=== PATIENT | female | born 1940 | race African-American/Black ===

== ENCOUNTER 2016-06-16 14:05 | Inpatient (IN) | payer MEDICARE, MEDICAID, OTHER ==
[~2016-06-16] VITALS: Ht 160 cm; Wt 83.3 kg
[~2016-06-16 14:05] MED LIST: ALEN70TA39 OR; CELE10TA9 PO; FERR325T PO; FOLI1 PO; GABA100C4 PO; LANTUS2P SC; METO50TA OR; MIRTA15 PO; NOVOLOGP2 SQ; OMEP20TA OR; OXYB5TAB PO; RANI150T PO; STAR120T PO; TAMO20TA4 PO; VITA400C28 PO; losartan/hctz PO
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
[2016-06-16] MEDS ORDERED: MORPHINE SULFATE 4 MG/ML INJ IV PUSH ONE (14:30)
[2016-06-16] MEDS ORDERED: SODIUM CHLORIDE 0.9% FLUSH 5 ML FLUSH IVF PRN (14:30)
[2016-06-16] MEDS ORDERED: ONDANSETRON HCL 4 MG/2 ML VIAL IM ONE (14:30)
[2016-06-16 14:32] VITALS: O2SAT 96
[2016-06-16 15:05] LABS: APTT (PATIENT) 28.5 SEC (24.3-30.1); PROTHROMBIN TIME - PATIENT 11.4 SEC (9.8-11.6)
[2016-06-16 15:07] LABS: AUTOMATED NEUTROPHIL # 6.3 TH/MM3 (1.8-7.7); BASOPHIL # 0.1 TH/MM3 (0-0.2); BASOPHIL % 0.5 % (0.0-2.0); EOSINOPHIL # 0.3 TH/MM3 (0-0.4); EOSINOPHIL % 2.3 % (0.0-4.0); HEMATOCRIT 32.7 % (35.0-46.0); LYMPH % 41.1 % (9.0-44.0); LYMPHOCYTE # 5.2 TH/MM3 (1.0-4.8); MEAN CELL VOLUME 69.6 FL (80.0-100.0); MEAN CORPUSCULAR HEMOGLOBIN 21.9 PG (27.0-34.0); MEAN CORPUSCULAR HGB CONC 31.4 % (32.0-36.0); MONO % 6.7 % (0.0-8.0); NEUT % 49.4 % (16.0-70.0); PLATELET COUNT 168 TH/MM3 (150-450); RED CELL DISTRIBUTION WIDTH 15.3 % (11.6-17.2); WHITE BLOOD COUNT 12.7 TH/MM3 (4.0-11.0)
[2016-06-16] MEDS ORDERED: ONDANSETRON HCL 4 MG/2 ML VIAL IV PUSH ONE (15:15)
[2016-06-16] MEDS ORDERED: HYDROmorphone HCL PF 1 MG/ML VIAL IV PUSH ONE (15:15)
[2016-06-16 15:18] LABS: ALT (GPT) 61 U/L (10-53); ANION GAP 9 MEQ/L (5-15); AST (GOT) 55 U/L (15-37); BLOOD UREA NITROGEN 32 MG/DL (7-18); CHLORIDE 105 MEQ/L (98-107); GLOMERULAR FILTRATION RATE 40 ML/MIN (>89); POTASSIUM 4.2 MEQ/L (3.5-5.1); SODIUM (NA) 141 MEQ/L (136-145)
[2016-06-16 15:21] LABS: ALKALINE PHOSPHATASE 171 U/L (45-117); TOTAL BILIRUBIN ADULT 0.5 MG/DL (0.2-1.0)
[2016-06-16 15:36] VITALS: BP 221/84; PULSE 91; RESP 16; O2SAT 96
[2016-06-16 15:38] LABS: BLOOD, URINE NEG (NEG); GLUCOSE,URINE NEG (NEG); KETONE, URINE NEG (NEG); NITRITE,URINE NEG (NEG); PH, URINE 6.5 (5.0-8.5); SQUAMOUS EPITHELIAL CELL URINE <1 /hpf (0-5); URINE COLOR YELLOW (YELLW/STRAW)
[2016-06-16] MEDS ORDERED: METO50TA PO (15:46)
[2016-06-16] MEDS ORDERED: FOSA70TA PO (15:46)
[2016-06-16] MEDS ORDERED: ZANT150T2 PO (15:46)
[2016-06-16] MEDS ORDERED: VITA100018 PO (15:46)
[2016-06-16] MEDS ORDERED: NOVOLOGP2 SQ (15:46)
[2016-06-16] MEDS ORDERED: CELE40TA PO (15:46)
[2016-06-16] MEDS ORDERED: OXYB5TAB10 PO (15:46)
[2016-06-16] MEDS ORDERED: FOLI1TAB4 PO (15:46)
[2016-06-16] MEDS ORDERED: GABA100C4 PO (15:46)
[2016-06-16] MEDS ORDERED: LANTUS2P SQ (15:46)
[2016-06-16] MEDS ORDERED: FERR325T PO (15:46)
[2016-06-16] MEDS ORDERED: STAR120T PO (15:46)
[2016-06-16] MEDS ORDERED: REME15TA PO (15:46)
[2016-06-16] MEDS ORDERED: TAMO20TA6 PO (15:46)
[2016-06-16] MEDS ORDERED: LOSA50TA2 PO (15:46)
[2016-06-16] MEDS ORDERED: OMEP20TA PO (15:46)
[2016-06-16 16:04] LABS: HEMO FLAGS AUTO DIFF
[2016-06-16 16:23] LABS: COMMENT (UR) CATH-CULT NOT IND; CULTURE IF INDICATED CATH CULTURE NOT IND
[2016-06-16 16:24] LABS: CORRECTED NUCLEATED RBC 1 /100 WBC (0-0); EOSINOPHILS 2 % (0-4); NEUTROPHIL # MANUAL DIFF 5.6 TH/MM3 (1.8-7.7); POLYS (SEG NEUTROPHILS) 44 % (16-70); TARGET CELLS 1+ (NORMAL); WBC DIFF SAMPLE 100
[2016-06-16 16:25] LABS: OVALOCYTES 1+ (NORMAL); PLATELET ESTIMATE SMEAR NORMAL (NORMAL); PLATELET MORPHOLOGY NORMAL (NORMAL); SCAN/DIFF FINAL DIFF MANUAL
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
[2016-06-16] MEDS ORDERED: MORPHINE SULFATE 8 MG/ML INJ IV PUSH ONE (17:00)
--- NOTE | 2016-06-16 17:01 | PD ---
Physical Exam Date Seen by Provider: Jun 16, 2016 Time Seen by Provider: 16:58 Narrative 76-year-old female came to the emergency room with history of a fall and right hip pain and shortening. Patient was initially seen by the PA who had ordered the x-ray and blood work. The x-ray was just completed and shows a displaced intertrochanteric fracture. Put a call out for the orthopedist and waiting to hear back from them. Patient will require surgery. I spoke with the family and consumer sciences teacher who will admit the patient. I've informed the patient as well as the family member in the room was doing the translation. Patient has been given some pain medication for pain control. Data Data Last Documented VS Vital Signs Date Time Temp Pulse Resp B/P Pulse Ox O2 Delivery O2 Flow Rate FiO2 06/16/16 15:36 91 16 221/84 96 Nasal Cannula 2 Orders Electrocardiogram (06/16/16 14:23) Complete Blood Count With Diff (06/16/16 14:23) Comprehensive Metabolic Panel (06/16/16 14:23) Prothrombin Time / Inr (Pt) (06/16/16 14:23) Act Partial Throm Time (Ptt) (06/16/16 14:23) Urinalysis - C+S If Indicated (06/16/16 14:23) Chest, Single Ap (06/16/16 14:23) Femur (Ap & Lat/2vws) (06/16/16 14:23) Hip, Uni(Ap&Lat) W Ap Pelvis (06/16/16 14:23) Iv Access Insert/Monitor (06/16/16 14:23) Urinary Catheter Insert/Apply (06/16/16 14:23) Oximetry (06/16/16 14:23) Ecg Monitoring (06/16/16 14:23) Morphine Inj (Morphine Inj) (06/16/16 14:30) Sodium Chloride 0.9% Flush (Ns Flush) (06/16/16 14:30) Ondansetron Inj (Zofran Inj) (06/16/16 14:30) Hydromorphone Pf Inj (Dilaudid Pf Inj) (06/16/16 15:15) Ondansetron Inj (Zofran Inj) (06/16/16 15:15) Morphine Inj (Morphine Inj) (06/16/16 17:00) Sodium Chlor 0.9% 1000 Ml Inj (Ns 1000 M (06/16/16 17:15) Admit Order (Ed Use Only) (06/16/16 17:01) Labs Laboratory Tests Test 06/16/16 06/16/16 14:42 14:45 White Blood Count 12.7 TH/MM3 Red Blood Count 4.70 MIL/MM3 Hemoglobin 10.3 GM/DL Hematocrit 32.7 % Mean Corpuscular Volume 69.6 FL Mean Corpuscular Hemoglobin 21.9 PG Mean Corpuscular Hemoglobin 31.4 % Concent Red Cell Distribution Width 15.3 % Platelet Count 168 TH/MM3 Mean Platelet Volume 9.5 FL Neutrophils (%) (Auto) 49.4 % Lymphocytes (%) (Auto) 41.1 % Monocytes (%) (Auto) 6.7 % Eosinophils (%) (Auto) 2.3 % Basophils (%) (Auto) 0.5 % Neutrophils # (Auto) 6.3 TH/MM3 Lymphocytes # (Auto) 5.2 TH/MM3 Monocytes # (Auto) 0.9 TH/MM3 Eosinophils # (Auto) 0.3 TH/MM3 Basophils # (Auto) 0.1 TH/MM3 CBC Comment AUTO DIFF Differential Total Cells 100 Counted Neutrophils % (Manual) 44 % Lymphocytes % 50 % Monocytes % 4 % Eosinophils % 2 % Neutrophils # (Manual) 5.6 TH/MM3 Nucleated Red Blood Cells 1 /100 WBC Differential Comment FINAL DIFF MANUAL Platelet Estimate NORMAL Platelet Morphology Comment NORMAL Target Cells 1+ Ovalocytes 1+ Prothrombin Time 11.4 SEC Prothromb Time International 1.0 RATIO Ratio Activated Partial 28.5 SEC Thromboplast Time Sodium Level 141 MEQ/L Potassium Level 4.2 MEQ/L Chloride Level 105 MEQ/L Carbon Dioxide Level 27.0 MEQ/L Anion Gap 9 MEQ/L Blood Urea Nitrogen 32 MG/DL Creatinine 1.55 MG/DL Estimat Glomerular Filtration 40 ML/MIN Rate Random Glucose 131 MG/DL Calcium Level 8.5 MG/DL Total Bilirubin 0.5 MG/DL Aspartate Amino Transf 55 U/L (AST/SGOT) Alanine Aminotransferase 61 U/L (ALT/SGPT) Alkaline Phosphatase 171 U/L Total Protein 7.7 GM/DL Albumin 3.6 GM/DL Urine Color YELLOW Urine Turbidity CLEAR Urine pH 6.5 Urine Specific [place] 1.013 Urine Protein TRACE mg/dL Urine Glucose (UA) NEG mg/dL Urine Ketones NEG mg/dL Urine Occult Blood NEG Urine Nitrite NEG Urine Bilirubin NEG Urine Urobilinogen LESS THAN 2.0 MG/DL Urine Leukocyte Esterase NEG Urine RBC 1 /hpf Urine WBC 1 /hpf Urine Squamous Epithelial <1 /hpf Cells Microscopic Urinalysis Comment CATH-CULT NOT IND MDM Supervised Visit with LAUREN: Yes Narrative Course 5:07 PM I just spoke with the PA of Dr. Banks and they plan to operate on her tomorrow first thing in the morning. They wanted her NPO after midnight which has been ordered. Diagnosis Primary Impression: Intertrochanteric fracture of right femur Qualified Code: S72.141A - Intertrochanteric fracture of right femur, closed, initial encounter Admitting Information Admitting Physician Requests: Admit Scripts Rivaroxaban (Xarelto)10 Mg Tab10 Mg PO DAILY #14 TAB Ref 0 Prov:Edmundo Conti 06/17/16 Hydrocodone-Acetaminophen ([place])7.5-325 mg Tab1 Tab PO Q6H PRN (PAIN) #60 TAB Ref 0 Prov:Edmundo Conti 06/17/16 Condition: Stable Sandra Mccartney MD Jun 16, 2016 17:01
--- NOTE | 2016-06-16 17:04 | RADRPT ---
EXAM DATE/TIME: 06/16/2016 16:14 [facility] COMPARISON: No previous studies available for comparison. INDICATIONS : Fell. MEDICAL HISTORY : None. SURGICAL HISTORY : None. ENCOUNTER: Initial ACUITY: 1 day PAIN SCORE: 10/10 LOCATION: Right femur FINDINGS: Multiple views of the right femur demonstrate a comminuted fracture involving the left proximal femur with extension into the intertrochanteric region. They have many of the proximal femoral diaphysis. The imaged portion of the knee is unremarkable. CONCLUSION: Comminuted mildly displaced fracture involving the left proximal femur with extension into the intert rochanteric region.. Connie Horn MD on June 16, 2016 at 17:01 Board Certified Radiologist. This report was verified electronically.
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
[2016-06-16] MEDS ORDERED: SODIUM CHLOR 0.9% 1000 ML INJ 1,000 ML IV ONE (17:15)
[2016-06-16] MEDS ORDERED: GLUCAGON 1 MG/ML VIAL OTHER PRN (17:30)
[2016-06-16] MEDS ORDERED: NALOXONE HCL 0.4 MG/ML AMP IV PRN ×2 (17:30)
[2016-06-16] MEDS ORDERED: ACETAMINOPHEN 325 MG TAB PO PRN (17:30)
[2016-06-16] MEDS ORDERED: ONDANSETRON HCL 4 MG/2 ML VIAL IVP PRN (17:30)
[2016-06-16] MEDS ORDERED: SODIUM CHLORIDE 0.9% FLUSH 5 ML FLUSH FLUSH PRN (17:30)
[2016-06-16] MEDS ORDERED: DEXTROSE 50% IN WATER 50 ML VIAL(D50) IV PUSH PRN (17:30)
--- NOTE | 2016-06-16 17:31 | HHI.HP ---
[facility] Service Family Medicine Primary Care Physician Myek Garcia Admission Diagnosis right hip fracture Diagnoses: Chief Complaint: Hip pain International Travel<30 Days: No Contact w/Intl Traveler<30days: No Known Affected Area: No History of Present Illness Patient is a 76-year-old female with a past medical history significant for DM type II, MDD, breast cancer and HTN who presents today after a fall. Patient was at her friend's house when a small dog approached her. When trying to back away from the dog, she felt backwards and hurt her right hip. History is limited due to language barrier as patient is [place]-speaking. She is in a significant amount of pain, rating it 11/10. She denies any paraesthesias. Per chart review, she has had fractures in the past and is currently being treated for osteoporosis. She denies trauma to any other part of her body. She did not hit her head or have loss of consciousness. She was otherwise in her baseline state of health. She denies any chest pain, shortness of breath, fever , chills, nausea or vomiting. (Melina Méndez MD R2) Review of Systems Constitutional: DENIES: Fever, Chills, Dizziness Eyes: DENIES: Vision loss Ears, nose, mouth, throat: DENIES: Throat pain Respiratory: DENIES: Cough, Shortness of breath Cardiovascular: DENIES: Chest pain, Orthopnea Gastrointestinal: DENIES: Abdominal pain, Nausea, Vomiting Genitourinary: DENIES: Dysuria Musculoskeletal: COMPLAINS OF: Joint pain, Muscle aches, Stiffness, Joint Swelling Neurologic: DENIES: Headache, Paresthesias Psychiatric: COMPLAINS OF: Depression (Melina Méndez MD R2) Past Family Social History Past Medical History DM Type 2 MDD Breast Cancer Osteoporosis HTN Past Surgical History Left breast mastectomy Appendectomy Rectocele/Cystocele Repair Polyp removal from Colon Reported Medications Reported Meds & Active Scripts Active Reported Losartan-Hydrochlorothiazide 50-12.5 Mg Tab 1 Tab PO DAILY Tamoxifen (Tamoxifen Citrate) 20 Mg Tab 20 Mg PO DAILY Zantac (Ranitidine HCl) 150 Mg Tab 150 Mg PO BID Ditropan (Oxybutynin Chloride) 5 Mg Tab 5 Mg PO Q12HR Omeprazole 20 Mg Tab 20 Mg PO DAILY Novolog Inj (Insulin Aspart) 1,000 Unit/10 Ml Vial 0 SQ DIRECTED Sliding Scale as directed. Starlix (Nateglinide) 120 Mg Tab 120 Mg PO BID Remeron (Mirtazapine) 15 Mg Tab 15 Mg PO HS Metoprolol Tartrate 50 Mg Tab 50 Mg PO DAILY Lantus Inj (Insulin Glargine) 100 Unit/Ml Inj 80 Units SQ DAILY Gabapentin 100 Mg Cap 200 Mg PO TID Folate (Folic Acid) 1 Mg Tab 1 Mg PO DAILY Ferrous Sulfate 325 Mg Tab 325 Mg PO BID Celexa (Citalopram Hydrobromide) 40 Mg Tab 40 Mg PO DAILY Vitamin D3 (Cholecalciferol) 1,000 Unit Tab 1,000 Units PO DAILY Fosamax (Alendronate Sodium) 70 Mg Tab 70 Mg PO WEEKLY (Melina Méndez MD R2) Allergies: Coded Allergies: No Known Allergies (Verified , UNKNOWN NAME/TYPE OF ALLERGIES TO MEDS, 06/16) Active Ordered Medications Current Medications Medications (Trade) Dose Ordered Sig/Carlton Route Start Time Stop Time Status Last Admin Sodium Chloride 1,000 ml @ 999 mls/hr BOLUS ONCE IV 06/16/16 17:15 06/16/16 18:15 06/16/16 17:16 (NS 1000 ml Inj) 1,000 ml @ 100 mls/hr Q10H IV 06/16/16 18:00 (NS Flush) 2 ml UNSCH PRN FLUSH 06/16/16 17:30 (NS Flush) 2 ml BID FLUSH 06/16/16 21:00 (Tylenol) 650 mg Q4H PRN PO 06/16/16 17:30 (Zofran Inj) 4 mg Q6H PRN IVP 06/16/16 17:30 (Milk Of Magnesia Liq) 30 ml Q12H PRN PO 06/16/16 17:30 (Narcan Inj) 0.4 mg UNSCH PRN IV 06/16/16 17:30 (Page 5-325 Mg) 1 tab Q4H PRN PO 06/16/16 17:30 (Page 10-325 Mg) 1 tab Q4H PRN PO 06/16/16 17:30 (Morphine Inj) 4 mg Q3H PRN IV 06/16/16 17:30 (Narcan Inj) 0.4 mg UNSCH PRN IV 06/16/16 17:30 (Vitamin D3) 1,000 units DAILY PO 06/17/16 09:00 (CeleXA) 40 mg DAILY PO 06/17/16 09:00 (Ferrous Sulfate) 325 mg BID PO 06/16/16 21:00 (Folate) 1 mg DAILY PO 06/17/16 09:00 (Neurontin) 200 mg TID PO 06/16/16 18:00 (Lopressor) 50 mg DAILY PO 06/17/16 09:00 (Remeron) 15 mg HS PO 06/16/16 21:00 (Protonix) 20 mg DAILY PO 06/17/16 09:00 (Ditropan) 5 mg Q12HR PO 06/16/16 21:00 (Nolvadex) 20 mg DAILY PO 06/17/16 09:00 (D50w (Vial) Inj) 25 ml UNSCH PRN IV PUSH 06/16/16 17:30 (Glucagon Inj) 1 mg UNSCH PRN OTHER 06/16/16 17:30 (Cozaar) 50 mg DAILY PO 06/17/16 09:00 (Microzide) 12.5 mg DAILY PO 06/17/16 09:00 Family History No significant family medical history. Social History No tobacco, alcohol, or illicit drug use. (Melina Méndez MD R2) Physical Exam Vital Signs Vital Signs Date Time Temp Pulse Resp B/P Pulse Ox O2 Delivery O2 Flow Rate FiO2 06/16/16 15:36 91 16 221/84 96 Nasal Cannula 2 06/16/16 14:32 96 Room Air Physical Exam GENERAL: This is a well-nourished, well-developed female patient who appears in pain. SKIN: No rashes, ecchymoses or lesions. Cool and dry. HEAD: Atraumatic. Normocephalic. No temporal or scalp tenderness. EYES: Pupils equal round and reactive. Extraocular motions intact. No scleral icterus. No injection or drainage. ENT: Nose without bleeding, purulent drainage or septal hematoma. Throat without erythema, tonsillar hypertrophy or exudate. Uvula midline. Airway patent. NECK: Trachea midline. No JVD or lymphadenopathy. Supple, nontender, no meningeal signs. CARDIOVASCULAR: Regular rate and rhythm without murmurs, gallops, or rubs. RESPIRATORY: Clear to auscultation. Breath sounds equal bilaterally. No wheezes , rales, or rhonchi. GASTROINTESTINAL: Abdomen soft, non-tender, nondistended. No hepato-splenomegaly , or palpable masses. No guarding. MUSCULOSKELETAL: Right hip with joint tenderness and edema. Limited ROM due to pain. Able to wiggle toes bilaterally. No calf tenderness. NEUROLOGICAL: Awake and alert. Cranial nerves II through XII intact. Motor and sensory grossly within normal limits. Normal speech. Laboratory Laboratory Tests Test 06/16/16 06/16/16 14:42 14:45 White Blood Count 12.7 Red Blood Count 4.70 Hemoglobin 10.3 Hematocrit 32.7 Mean Corpuscular Volume 69.6 Mean Corpuscular Hemoglobin 21.9 Mean Corpuscular Hemoglobin 31.4 Concent Red Cell Distribution Width 15.3 Platelet Count 168 Mean Platelet Volume 9.5 Neutrophils (%) (Auto) 49.4 Lymphocytes (%) (Auto) 41.1 Monocytes (%) (Auto) 6.7 Eosinophils (%) (Auto) 2.3 Basophils (%) (Auto) 0.5 Neutrophils # (Auto) 6.3 Lymphocytes # (Auto) 5.2 Monocytes # (Auto) 0.9 Eosinophils # (Auto) 0.3 Basophils # (Auto) 0.1 CBC Comment AUTO DIFF Differential Total Cells 100 Counted Neutrophils % (Manual) 44 Lymphocytes % 50 Monocytes % 4 Eosinophils % 2 Neutrophils # (Manual) 5.6 Nucleated Red Blood Cells 1 Differential Comment FINAL DIFF MANUAL Platelet Estimate NORMAL Platelet Morphology Comment NORMAL Target Cells 1+ Ovalocytes 1+ Prothrombin Time 11.4 Prothromb Time International 1.0 Ratio Activated Partial 28.5 Thromboplast Time Sodium Level 141 Potassium Level 4.2 Chloride Level 105 Carbon Dioxide Level 27.0 Anion Gap 9 Blood Urea Nitrogen 32 Creatinine 1.55 Estimat Glomerular Filtration 40 Rate Random Glucose 131 Calcium Level 8.5 Total Bilirubin 0.5 Aspartate Amino Transf 55 (AST/SGOT) Alanine Aminotransferase 61 (ALT/SGPT) Alkaline Phosphatase 171 Total Protein 7.7 Albumin 3.6 Urine Color YELLOW Urine Turbidity CLEAR Urine pH 6.5 Urine Specific [place] 1.013 Urine Protein TRACE Urine Glucose (UA) NEG Urine Ketones NEG Urine Occult Blood NEG Urine Nitrite NEG Urine Bilirubin NEG Urine Urobilinogen LESS THAN 2.0 Urine Leukocyte Esterase NEG Urine RBC 1 Urine WBC 1 Urine Squamous Epithelial <1 Cells Microscopic Urinalysis Comment CATH-CULT NOT IND (Melina Méndez MD R2) Result Diagram: 06/16/16 1442 06/16/16 1442 Imaging Last Impressions Hip and Pelvis X-Ray 06/16/161422 Signed Impressions: Service Date/Time: , June 16, 2016 16:14 - CONCLUSION: Acute comminuted mildly displaced fracture involving the right proximal femur with extension into the intratrochanteric region. No additional fractures are visualized. Connie Horn MD Femur X-Ray 06/16/161422 Signed Impressions: Service Date/Time: , June 16, 2016 16:14 - CONCLUSION: Comminuted mildly displaced fracture involving the left proximal femur with extension into the intertrochanteric region.. Connie Horn MD Chest X-Ray 06/16/161422 Signed Impressions: Service Date/Time: , June 16, 2016 16:21 - CONCLUSION: 1. Cardiomegaly and chronic interstitial changes. No acute abnormality. Alfred Draper MD (Melina Méndez MD R2) Assessment and Plan Assessment and Plan Patient is a 76-year-old female with a past medical history significant for DM type II, MDD, breast cancer and HTN who presents today after a fall and is admitted for right hip fracture. Code Status Full code Discussed Condition With dw Dr. Vu and Dr. Zaragoza (Melina Méndez MD R2) Attending Attestation THIS CASE WAS DISCUSSED WITH THE RESIDENT PHYSICIANS. I HAVE REVIEWED THE RECORD AND AGREE WITH THE ABOVE NOTE AND PLAN OF CARE WAS DISCUSSED. I HAVE AUTHORIZED THE ORDER FOR ADMISSION TO AN IN-PATIENT STATUS. (Jak Vu MD) Problem List: (1) Intertrochanteric fracture of right femur Status: Acute Plan: Abdomen pelvis x-ray significant for acute comminuted mildly displaced fracture involving the right proximal femur with extension into the antrum trochanteric region. Blood pressure elevated on admission to 221/84 likely secondary to pain Plan: - Consult Orthopedic Surgery- Plan to operate in AM, NPO after midnight - Pain control with Page 5-325mg PO Q4H PRN Pain 3-5, Page 10-325mg PO Q4H PRN Pain 6-10, Morphine 4mg IV Q3H PRN Breakthrough Pain (2) Type 2 diabetes mellitus with diabetic neuropathy Status: Acute Plan: Hold home Lantus 80units SQ daily, Nateglinide 120mg PO BID, and Novolog SSI Diabetic Diet, NPO after midnight Accuchecks and Low-dose SSI (3) HTN (hypertension) Status: Acute Plan: Continue home dose of Metoprolol 50mg PO daily, Losartan-HCTZ 50-12.5mg PO daily (4) MDD (major depressive disorder), recurrent episode, mild Status: Acute Plan: Continue home dose of Remeron 15mg PO HS, Celexa 40mg PO Daily (5) Nutrition, metabolism, and development symptoms Status: Acute Plan: Fluids: NS @ 100ml/hr Electrolytes: wnl, continue to monitor and replete as needed Nutrition: Diabetic Diet, NPO after midnight DVT PPx: SCD's, hold chemical anticoagulation in anticipation of surgery in AM (Melina Méndez MD R2) Physician Certification 2 Midnight Certification Type: Admission for Inpatient Services Order for Inpatient Services The services are ordered in accordance with Medicare regulations or non- Medicare payer requirements, as applicable. In the case of services not specified as inpatient-only, they are appropriately provided as inpatient services in accordance with the 2-midnight benchmark. Estimated LOS (days): 2 days is the estimated time the patient will need to remain in the hospital, assuming treatment plan goals are met and no additional complications. Post-Hospital Plan: SNF (Melina Méndez MD R2) Problem Qualifiers (1) Intertrochanteric fracture of right femur: Qualified Code: S72.141A - Intertrochanteric fracture of right femur, closed, initial encounter (2) Type 2 diabetes mellitus with diabetic neuropathy: Qualified Code: E11.40 - Type 2 diabetes mellitus with diabetic neuropathy, with long-term current use of insulin (3) HTN (hypertension): Qualified Code: I10 - Essential hypertension Melina Méndez MD R2 Jun 16, 2016 17:30 Jak Vu MD Jun 17, 2016 11:30
[2016-06-16] MEDS: GABAPENTIN 100 MG CAP PO SCH (18:32)
[2016-06-16] MEDS: SODIUM CHLOR 0.9% 1000 ML INJ 1,000 ML IV SCH (18:33)
[2016-06-16 18:34] VITALS: BP 131/69; PULSE 92; RESP 22; O2SAT 100
[2016-06-16 19:14] VITALS: BP 159/75; PULSE 91; RESP 18; O2SAT 98
[2016-06-16] MEDS: MORPHINE SULFATE 4 MG/ML INJ IV PRN (20:03)
[2016-06-16 20:20] VITALS: BP 159/75; TEMP 98.1
[2016-06-16] MEDS: SODIUM CHLORIDE 0.9% FLUSH 5 ML FLUSH FLUSH SCH (21:00)
[2016-06-16] MEDS: INSULIN ASPART SUPPLEMENTAL SCALE SQ SCH (21:00)
[2016-06-16] MEDS: OXYBUTYNIN CHLORIDE 5 MG TAB PO SCH (21:22)
[2016-06-16] MEDS: FERROUS SULFATE 325 MG (65 MG ELEMENTAL IRON) TAB PO SCH (21:22)
[2016-06-16] MEDS: MIRTAZAPINE 15 MG TAB PO SCH (21:22)
[2016-06-16] MEDS: ACETAMINOPHEN/HYDROcodone 325 MG/10 MG TAB PO PRN (21:22)
[2016-06-16 22:00] VITALS: BP 157/78; PULSE 90; RESP 16; TEMP 98.2; O2SAT 94
[2016-06-17] VITALS (7 sets, daily range): BP systolic 111–139; BP diastolic 53–70; PULSE 83–95; RESP 16–20; TEMP 97.2–100.4; O2SAT 94–96
[2016-06-17] MEDS: MORPHINE SULFATE 4 MG/ML INJ IV PRN ×2 (03:58→20:17)
[2016-06-17] MEDS: SODIUM CHLOR 0.9% 1000 ML INJ 1,000 ML IV SCH ×2 (04:00→13:45)
[2016-06-17] MEDS: INSULIN ASPART SUPPLEMENTAL SCALE SQ SCH ×4 (05:24→20:16)
[2016-06-17] MEDS ORDERED: GENTAMICIN SULFATE 80 MG/2 ML VIAL ONE (06:24)
[2016-06-17] MEDS ORDERED: ceFAZolin 2 GM PREMIX 50 ML ONE (06:40)
[2016-06-17 06:47] LABS: AUTOMATED NEUTROPHIL # 9.3 TH/MM3 (1.8-7.7); BASOPHIL # 0.1 TH/MM3 (0-0.2); BASOPHIL % 0.5 % (0.0-2.0); EOSINOPHIL # 0.3 TH/MM3 (0-0.4); EOSINOPHIL % 1.7 % (0.0-4.0); HEMATOCRIT 27.9 % (35.0-46.0); LYMPH % 30.2 % (9.0-44.0); LYMPHOCYTE # 4.6 TH/MM3 (1.0-4.8); MEAN CELL VOLUME 70.2 FL (80.0-100.0); MEAN CORPUSCULAR HEMOGLOBIN 22.1 PG (27.0-34.0); MEAN CORPUSCULAR HGB CONC 31.5 % (32.0-36.0); MONO % 6.3 % (0.0-8.0); NEUT % 61.3 % (16.0-70.0); PLATELET COUNT 154 TH/MM3 (150-450); RED BLOOD COUNT 3.98 MIL/MM3 (4.00-5.30); RED CELL DISTRIBUTION WIDTH 15.7 % (11.6-17.2); WHITE BLOOD COUNT 15.2 TH/MM3 (4.0-11.0)
--- NOTE | 2016-06-17 06:47 | PD.ORT.PN ---
Subjective Subjective Remarks s/p fall right hip pain. no other complaints. does not speak kazakh (Edmundo Conti) Objective Vitals Vital Signs Date Time Temp Pulse Resp B/P Pulse Ox O2 Delivery O2 Flow Rate FiO2 06/17/16 04:00 98.7 87 16 139/70 94 06/17/16 02:45 94 Nasal Cannula 2.00 06/16/16 22:00 98.2 90 16 157/78 94 06/16/16 20:20 98.1 91 18 159/75 97 Nasal Cannula 2 06/16/16 19:14 91 18 159/75 98 Nasal Cannula 06/16/16 18:34 92 22 131/69 100 Nasal Cannula 2 06/16/16 15:36 91 16 221/84 96 Nasal Cannula 2 06/16/16 14:32 96 Room Air I/O 06/16/16 06/16/16 06/16/16 06/17/16 06/17/16 06/17/16 07:00 15:00 23:00 07:00 15:00 23:00 Intake Total 240 ml 0 ml Output Total 850 ml 800 ml Balance -610 ml -800 ml Intake Oral 240 ml 0 ml Output Urine Total 850 ml 800 ml # Bowel Movements 0 0 (Edmundo Conti) Result Diagram: 06/16/16 1442 06/16/16 1442 Other Results Laboratory Tests Test 06/16/16 14:42 Prothrombin Time 11.4 SEC (9.8-11.6) Prothromb Time International 1.0 RATIO Ratio Imaging Last 24 hours Impressions Hip and Pelvis X-Ray 06/16/161422 Signed Impressions: Service Date/Time: May 16:14 - CONCLUSION: Acute comminuted mildly displaced fracture involving the right proximal femur with extension into the intratrochanteric region. No additional fractures are visualized. Connie Horn MD Femur X-Ray 06/16/161422 Signed Impressions: Service Date/Time: May 16:14 - CONCLUSION: Comminuted mildly displaced fracture involving the left proximal femur with extension into the intertrochanteric region.. Connie Horn MD Chest X-Ray 06/16/161422 Signed Impressions: Service Date/Time: May 16:21 - CONCLUSION: 1. Cardiomegaly and chronic interstitial changes. No acute abnormality. Alfred Draper MD Objective Remarks RLE: pain with motion of hip. NVI with good motion of toes and ankle (Edmundo Conti) Assessment & Plan Assessment and Plan 1) Right Intertroch Hip Fx -consents -surgery today (Edmundo Conti) Assessment and Plan Postop day #0 status post trochanteric nail for subtrochanteric fracture with percutaneous pinning of femoral neck fracture right hip. Toe-touch weight-bearing Lovenox /Xarelto SNF planning Discharge Monday or Monday (Mil Tejeda MD) Edmundo Conti Jun 17, 2016 06:47 Mil Tejeda MD Jun 17, 2016 09:23
[2016-06-17] MEDS ORDERED: HYDR-3288 PO (06:49)
[2016-06-17] MEDS ORDERED: XARE10TA PO (06:49)
[2016-06-17] MEDS ORDERED: WALKER/ADULT/FO1 MIS (06:49)
[2016-06-17 06:55] LABS: HEMO FLAGS AUTO DIFF
[2016-06-17 07:12] LABS: BICARBONATE 26.9 MEQ/L (21.0-32.0); POTASSIUM 4.4 MEQ/L (3.5-5.1)
[2016-06-17] MEDS: METOPROLOL TARTRATE 50 MG TAB PO SCH (07:43)
[2016-06-17 07:58] LABS: PLATELET ESTIMATE SMEAR NORMAL (NORMAL); PLATELET MORPHOLOGY NORMAL (NORMAL); SCAN/DIFF AUTO DIFF CONFIRMED
[2016-06-17] MEDS: LACTATED RINGER'S 1000 ML IV SCH (08:00)
[2016-06-17] MEDS: SODIUM CHLORID 0.9% 500 ML IV SCH (08:00)
[2016-06-17] MEDS ORDERED: VANCOMYCIN HCL 1000 MG VIAL ONE (08:13)
[2016-06-17] MEDS: SODIUM CHLORIDE 0.9% FLUSH 5 ML FLUSH FLUSH SCH ×2 (08:33→20:17)
[2016-06-17] MEDS: CITALOPRAM HYDROBROMIDE 40 MG TAB PO SCH (08:34)
[2016-06-17] MEDS: FERROUS SULFATE 325 MG (65 MG ELEMENTAL IRON) TAB PO SCH ×2 (08:35→20:15)
[2016-06-17] MEDS: OXYBUTYNIN CHLORIDE 5 MG TAB PO SCH ×2 (08:35→20:15)
[2016-06-17] MEDS: FOLIC ACID 1 MG TAB PO SCH (08:35)
[2016-06-17] MEDS: LOSARTAN 50 MG TAB PO SCH (08:35)
[2016-06-17] MEDS ORDERED: BUPIVACAINE/EPINEPHRINE 0.25% PF 30 ML VIAL ONE (08:35)
[2016-06-17] MEDS: HYDROCHLOROTHIAZIDE 12.5 MG CAP PO SCH (08:36)
[2016-06-17] MEDS: PANTOPRAZOLE SOD 20 MG DELAYED RELEASE TAB PO SCH (08:36)
[2016-06-17] MEDS: CHOLECALCIFEROL (VIT D3) 1000 UNIT TAB PO SCH (08:36)
[2016-06-17] MEDS: GABAPENTIN 100 MG CAP PO SCH ×3 (08:36→17:40)
[2016-06-17] MEDS: TAMOXIFEN CITRATE 10 MG TAB PO SCH (08:36)
[2016-06-17] MEDS ORDERED: NON-FORMULARY DRUG (Losartan-Hydrochlorothiazide 1 TAB) PO SCH (09:00)
--- NOTE | 2016-06-17 09:22 | PD.OP ---
cc: Mil Banks MD Operative Report Date of Surgery: Jun 17, 2016 Preoperative Diagnosis: Displaced right femur subtrochanteric fracture Postoperative Diagnosis: Right femur subtrochanteric fracture, right femoral neck fracture Procedure: Reduction and intramedullary nail fixation of right subtrochanteric femur fracture, percutaneous pinning of right femoral neck fracture Anesthesia: Gen. Surgeon: Mil Banks Video System Repairer(s): CHERYL aGrcia PA-C The surgical procedure was assisted by my physician certified surgical tech/first assistant. My P.A. presence was necessary throughout this case for the manipulation and positioning of the surgical extremity. My P.A. was assisting me throughout the duration of this procedure. The skill set of a physician certified surgical tech/first assistant was medically necessary to complete this procedure. During the surgical case the director medical surgical was working at the back table and the physician certified surgical tech/first assistant was directly assisting me. Operation and Findings: Implants used: 10 mm x [360]mm 130 Synthes TFNA troch nail Plan of activity: Toe-touch weightbearing Patient was seen and evaluated preoperatively. The patient has significant hip pain from proximal femur subtrochanteric fracture. The risk and benefits of surgery were discussed in depth with the patient to include bleeding, infection , nonunion, malunion, need for hip replacement, painful hardware, as well as medical competitions including blood clots, stroke, heart attack, and . Informed consent was obtained. Operative site was marked. Patient was brought to the operating room and placed on fracture table. IV sedation was administered by anesthesiologist. Timeout procedure was performed. Hip and leg were prepped with alcohol followed by DuraPrep and draped in the usual sterile fashion. IV antibiotics were given prior to incision. Procedure began with reduction of fracture. Traction was applied. The leg was manipulated to achieve reduction. Patient was noted to have both a subtrochanteric femur fracture as well as a femoral neck fracture. The femoral neck fracture was minimally displaced. Excellent reduction was achieved. Fluoroscopy was used to confirm reduction. A three inch incision was made proximal to the trochanter. Subcutaneous tissue was dissected bluntly. Guidepin was placed at the tip of the trochanter and advanced into the femoral canal. Fluoroscopy confirmed appropriate guidepin placement. A opening reamer was placed over the guidepin. A long ball tipped guide pin was now placed down the femoral canal into the center of the distal femur. The nail length was now measured. Fluoroscopy confirmed appropriate guidepin placement. Flexible reamers were now passed over the guidepin to ream the intramedullary canal. The Synthes TFNA nail was attached to the insertion handle. Nail was now placed over the guidepin into the femoral canal. Fluoroscopy confirmed appropriate nail placement. A second incision was made over the lateral thigh. Cannulas were placed through the insertion handle down to the femur. Guidepin was now placed through the femoral nail into the center of the femoral head. Fluoroscopy confirmed appropriate guidepin placement. Screw length was measured. At this point a percutaneous incision was made over the lateral femur. A guidepin for the Synthes 7.3 cannulated screws was now placed percutaneously. Guidepin was placed through the lateral femoral cortex. Guidepin was advanced across the fracture site into the femoral head. This pin was placed parallel to the guidepin for the trochanteric nail. The screw length was measured. The screw was placed for fixation of the femoral neck. A 7.3 Cannulated screw was now placed over the guidepin. Good compression was obtained. Next, Cannulated drill was placed over the guidepin that was placed through the nail. Appropriate length lag screw was now placed. Traction was released and compression was applied. The set screw was now tightened in dynamic mode. Next, using perfect [place] [employer] [place] technique two distal interlocking screws were placed. Screw holes were predrilled and screw lengths were measured. Final fluoroscopy revealed well aligned fracture with well-placed hardware. Incision was closed with 3-0 Vicryl and aditya. Sterile dressings were applied. Patient was awakened and transferred to recovery room. Mil Banks MD Jun 17, 2016 09:22
[2016-06-17] MEDS ORDERED: SODIUM CHLORIDE 0.9% FLUSH 5 ML FLUSH IVF PRN (09:30)
[2016-06-17] MEDS ORDERED: MORPHINE SULFATE 4 MG/ML INJ IV PUSH PRN (09:30)
[2016-06-17] MEDS ORDERED: ACETAMINOPHEN/HYDROcodone 325 MG/7.5 MG TAB PO PRN ×2 (09:30)
[2016-06-17] MEDS ORDERED: Post-op Orders (for Pharmacy) MISC XX ONE (09:30)
[2016-06-17] MEDS ORDERED: DO NOT ADM ANY ANTICOAGULANT DRUGS XX PRN (09:45)
[2016-06-17] MEDS ORDERED: fentaNYL CITRATE 250 MCG/5 ML AMP ONE (09:50)
--- NOTE | 2016-06-17 09:57 | HHI.FPPN ---
Subjective Remarks FM Attending Note: Patient seen and examined. S: Chart and all resident physician notes reviewed. In summary this is a 76 year old female who was admitted with an admission diagnosis of Right subtrochanteric Hip Fracture. This patient sustained a fall at a friend's house when she was trying to back away from a dog. She has a past history of type 2 diabetes, breast cancer, osteoporosis, hypertension and depression. She now is status post open reduction with internal fixation of the subtrochanteric fracture of her right hip. Communication is somewhat difficult since she only speaks Bruneian. She indicates no shortness of breath or significant pain. Objective Vitals Vital Signs Date Time Temp Pulse Resp B/P Pulse Ox O2 Delivery O2 Flow Rate FiO2 06/17/16 07:35 100.4 95 17 136/63 96 06/17/16 04:00 98.7 87 16 139/70 94 06/17/16 02:45 94 Nasal Cannula 2.00 06/16/16 22:00 98.2 90 16 157/78 94 06/16/16 20:20 98.1 91 18 159/75 97 Nasal Cannula 2 06/16/16 19:14 91 18 159/75 98 Nasal Cannula 06/16/16 18:34 92 22 131/69 100 Nasal Cannula 2 06/16/16 15:36 91 16 221/84 96 Nasal Cannula 2 06/16/16 15:36 96 High Flow Nasal Cannula 2.00 06/16/16 14:32 96 Room Air I/O 06/16/16 06/16/16 06/16/16 06/17/16 06/17/16 06/17/16 07:00 15:00 23:00 07:00 15:00 23:00 Intake Total 240 ml 0 ml Output Total 850 ml 800 ml Balance -610 ml -800 ml Intake Oral 240 ml 0 ml Output Urine Total 850 ml 800 ml # Bowel Movements 0 0 Result Diagram: 06/17/16 0610 06/17/16 0610 Other Results Item Value Date Time 25-Hydroxy Vitamin D Total 24.7 ng/ML L 06/17/16 0610 Total Bilirubin 0.5 MG/DL 06/16/16 1442 Aspartate Amino Transf (AST/SGOT) 55 U/L H 06/16/16 1442 Alanine Aminotransferase (ALT/SGPT) 61 U/L H 06/16/16 1442 Alkaline Phosphatase 171 U/L H 06/16/16 1442 Urine Specific [place] 1.013 06/16/16 1445 Urine Protein TRACE mg/dL 06/16/16 1445 Urine Occult Blood NEG 06/16/16 1445 Urine Nitrite NEG 06/16/16 1445 Urine Leukocyte Esterase NEG 06/16/16 1445 Urine RBC 1 /hpf 06/16/16 1445 Urine WBC 1 /hpf 06/16/16 1445 Imaging Last 48 hours Impressions Femur X-Ray 06/17/16 0000 Signed Impressions: Service Date/Time: Friday, June 17, 2016 09:13 - CONCLUSION: Limited images as detailed above. Prudencio Medina Jr., MD Hip and Pelvis X-Ray 06/16/16 1423 Signed Impressions: Service Date/Time: May 16:14 - CONCLUSION: Acute comminuted mildly displaced fracture involving the right proximal femur with extension into the intratrochanteric region. No additional fractures are visualized. Connie Horn MD Femur X-Ray 06/16/161422 Signed Impressions: Service Date/Time: May 16:14 - CONCLUSION: Comminuted mildly displaced fracture involving the left proximal femur with extension into the intertrochanteric region.. Connie Horn MD Chest X-Ray 06/16/161422 Signed Impressions: Service Date/Time: May 16:21 - CONCLUSION: 1. Cardiomegaly and chronic interstitial changes. No acute abnormality. Alfred Draper MD Objective Remarks O. CONSTITUTIONAL/GEN: normally nourished, in NAD. EYES: conjunctiva normal, PERRLA, EOMI. NECK: FROM without pain. LUNGS: clear A-P, respiratory effort is normal. CARDIOVASCULAR: RR without murmur or gallop. No significant edema. GI/ABD: soft without masses, without organomegaly. Non-tender. NEURO: No focal deficits. SKIN: color normal, no rashes noted. MUSC: back is normal in appearance. Extremities are normal in appearance. PSYCH/MENTAL STATUS: Alert and oriented x 3. A/P Assessment and Plan Patient is a 76-year-old female with a past medical history significant for DM type II, MDD, breast cancer and HTN who presents today after a fall and is admitted for right hip fracture. Problem List: (1) Intertrochanteric fracture of right femur Status: Acute Plan: Abdomen pelvis x-ray significant for acute comminuted mildly displaced fracture involving the right proximal femur with extension into the antrum trochanteric region. Blood pressure elevated on admission to 221/84 likely secondary to pain Plan: - Consult Orthopedic Surgery- Plan to operate in AM, NPO after midnight - Pain control with Lucan 5-325mg PO Q4H PRN Pain 3-5, Lucan 10-325mg PO Q4H PRN Pain 6-10, Morphine 4mg IV Q3H PRN Breakthrough Pain 06/17/16 Patient is now s/p ORIF of subtrochanteric hip fracture. Medical problems currently stable. (2) Type 2 diabetes mellitus with diabetic neuropathy Status: Acute Plan: Hold home Lantus 80units SQ daily, Nateglinide 120mg PO BID, and Novolog SSI Diabetic Diet, NPO after midnight Accuchecks and Low-dose SSI (3) HTN (hypertension) Status: Acute Plan: Continue home dose of Metoprolol 50mg PO daily, Losartan-HCTZ 50-12.5mg PO daily (4) MDD (major depressive disorder), recurrent episode, mild Status: Acute Plan: Continue home dose of Remeron 15mg PO HS, Celexa 40mg PO Daily (5) Nutrition, metabolism, and development symptoms Status: Acute Plan: Fluids: NS @ 100ml/hr Electrolytes: wnl, continue to monitor and replete as needed Nutrition: Diabetic Diet, NPO after midnight DVT PPx: SCD's, hold chemical anticoagulation in anticipation of surgery in AM Problem Qualifiers (1) Intertrochanteric fracture of right femur: Qualified Code: S72.141A - Intertrochanteric fracture of right femur, closed, initial encounter (2) Type 2 diabetes mellitus with diabetic neuropathy: Qualified Code: E11.40 - Type 2 diabetes mellitus with diabetic neuropathy, with long-term current use of insulin (3) HTN (hypertension): Qualified Code: I10 - Essential hypertension Jak Vu MD Jun 17, 2016 09:57
[2016-06-17] MEDS ORDERED: *RESP: ALBUTEROL 2.5 MG/3 ML NEB (PRN) PERIprocedural Use ONLY NEB ONE (10:01)
[2016-06-17] MEDS ORDERED: ERGOCALCIFEROL (VIT D2) 50,000 UNIT CAP PO ONE (11:00)
[2016-06-17] MEDS ORDERED: PROPOFOL 200 MG/20 ML AMP IV ONE (12:00)
[2016-06-17] MEDS ORDERED: ePHEDrine/NS 25 MG/5 ML SYR IV ONE (12:00)
[2016-06-17] MEDS ORDERED: ONDANSETRON HCL 4 MG/2 ML VIAL IV PUSH ONE (12:00)
[2016-06-17] MEDS ORDERED: PHENYLEPH/NS 1000 MCG/10 ML SYR IV ONE (12:00)
[2016-06-17] MEDS: ACETAMINOPHEN/HYDROcodone 325 MG/10 MG TAB PO PRN ×2 (12:39→17:41)
[2016-06-17] MEDS: ceFAZolin 2 GM PREMIX 50 ML IV SCH ×2 (12:39→22:11)
--- NOTE | 2016-06-17 12:55 | RADRPT ---
EXAM DATE/TIME: 06/17/2016 09:13 [facility] COMPARISON: FEMUR RIGHT (AP & LAT/2VWS), June 16, 2016, 16:14. INDICATIONS : ORIF right femur long troch nail. MEDICAL HISTORY : None. SURGICAL HISTORY : None. ENCOUNTER: Subsequent ACUITY: 2 days PAIN SCORE: Non-responsive. LOCATION: Right femur. FINDINGS: 6 magnified C-arm spot views are centered over the right femur. 2 orthopedic screws are seen traversi ng the femoral neck which are contained within the cortical confines of the femoral head. A long intr amedullary kassi is noted. Good alignment at the intertrochanteric fracture noted. Osteoarthritis invol ving the hip joint and knee joint. CONCLUSION: Limited images as detailed above. Prudencio Medina Jr., MD on June 17, 2016 at 12:53 Board Certified Radiologist. This report was verified electronically.
--- NOTE | 2016-06-17 13:12 | MB ---
cc: EDVIN BELL DATE OF CONSULTATION: 06/17/2016 REASON FOR CONSULTATION: Right proximal femur fractures. CONSULTING PHYSICIAN: Dr. Jak Vu. HISTORY OF PRESENT ILLNESS: Ms. Blackmon is a 76-year-old female who has a history of type 2 diabetes, hypertension and breast cancer. She was at her friend's house when a dog approached her. She was trying to back away when she lost her balance and fell. She landed on her right side. She had immediate right hip pain. The pain is worse with movement. She presented to the emergency room where x-rays revealed a displaced femur subtrochanteric fracture. She also has osteoporosis. She denies any dizziness, syncope, or loss of consciousness. She is Australian-speaking but has a family member who is interpreting for her today. PAST MEDICAL HISTORY / ILLNESSES: 1. Type 2 diabetes. 2. Breast cancer. 3. Osteoporosis. 4. Hypertension. PAST SURGICAL HISTORY: 1. Left breast mastectomy. 2. Appendectomy. 3. Rectocele repair. 4. Colon polyp removal. MEDICATIONS: Her medications include: 1. Losartan. 2. Hydrochlorothiazide. 3. Tamoxifen. 4. Zantac. 5. Ditropan. 6. Omeprazole. 7. Novolin. 8. Starlix. 9. Remeron. 10. Metoprolol. 11. Lantus. 12. Gabapentin. 13. Folic acid. 14. Celexa. 15. Vitamin D. 16. Fosamax. ALLERGIES: NO KNOWN DRUG ALLERGIES. FAMILY HISTORY: Family history is noncontributory. SOCIAL HISTORY: The patient denies alcohol, tobacco or drug use. REVIEW OF SYSTEMS: The patient denies headache, visual changes, neck pain, chest pain, shortness of breath, abdominal pain, nausea or vomiting, recent weight loss, or numbness or tingling of the extremities. She complains of right hip pain. Pain is worse with movement. PHYSICAL EXAMINATION: GENERAL: The patient is a well-developed, well-nourished 76-year-old female who is awake and alert. She is moderately overweight. VITAL SIGNS: Temperature 98.7, pulse 87, respirations 16, blood pressure 139/70, 02 saturation is 94% on two liters nasal cannula. HEAD, EYES, EARS, NOSE, THROAT: The patient is normocephalic. Pupils are equal. NECK: The neck is soft and nontender. Trachea is midline. CHEST: Lungs are clear. HEART: The patient has a regular rate and rhythm. ABDOMEN: The abdomen is soft, nontender and nondistended. EXTREMITIES: Examination of the bilateral upper extremities reveals no pain with shoulder, elbow or wrist motion. She has intact sensation in all fingers. She has good capillary refill in all fingers. Skin is intact. She has +2 parts inspector strength. Radial pulses are palpable. Examination of left leg reveals no pain with hip, knee or ankle motion. Skin is intact. Dorsalis pedis pulse is palpable. Sensation is intact. Examination of the right leg reveals pain with any hip motion. She has minimal tenderness of her knee, tibia or ankle. Skin is intact. Dorsalis pedis pulse is intact. Sensation is intact to the right foot. X-RAYS X-rays of right hip were reviewed. The patient is a displaced right hip subtrochanteric fracture. IMPRESSION: 1. Osteoporosis. 2. Diabetes. 3. Displaced right proximal femur fracture. PLAN: The treatment options were discussed with the patient. At this point, I would recommend reduction and intramedullary nail fixation of her right femur. The risks of surgery include bleeding, infection, injury to arteries, nerves or blood vessels, nonunion, malunion, avascular necrosis, need for hip replacement as well as medical complications including blood clot, stroke, heart attack and . All questions were answered. I will plan on surgery today. A mid-level provider in my office (nurse practitioner or physician assistant front desk manager) may see this patient on follow-up visits and continue to implement the objectives of this plan including: Starting or adjusting medications, injections , cast application, orthotics, brace application, physical therapy, radiological studies (including x-ray, MRI, CT, ultrasound, bone scan), vascular studies, neurologic studies, specialist consultation, and proceeding with surgical management, as appropriate. MD LUIS EDUARDO Hernandez/EM /9:28 AM /12:54 PM YEMI
--- NOTE | 2016-06-17 16:40 | EKG ---
Date Performed: 06/16/2016 Time Performed: 15:09:04 PTAGE: 76 years EKG: Sinus rhythm MINIMAL VOLTAGE CRITERIA FOR LVH, CONSIDER NORMAL VARIANT BORDERLINE ECG PREVIOUS TRACING : 05/29/2008 15.26 Compared to prior tracing no significant change DOCTOR: Tom Michael Interpretating Date/Time 06/17/2016 16:39:55
[2016-06-17] MEDS: MIRTAZAPINE 15 MG TAB PO SCH (20:16)
[2016-06-17] MEDS: SODIUM CHLORIDE 0.9% FLUSH 5 ML FLUSH IVF SCH (20:17)
[2016-06-17] MEDS ORDERED: INSULIN HUMAN REGULAR 1,000 UNITS/10 ML VIAL SQ PRN (22:00)
[2016-06-17] MEDS ORDERED: ENOXAPARIN SODIUM 30 MG/0.3 ML SYRINGE SQ SCH (22:00)
[2016-06-18] VITALS (7 sets, daily range): BP systolic 117–147; BP diastolic 56–72; PULSE 90–105; RESP 16–18; TEMP 98.2–100.9; O2SAT 93–100
[2016-06-18] MEDS: SODIUM CHLORID 0.9% 500 ML IV SCH (00:40)
[2016-06-18] MEDS: ACETAMINOPHEN/HYDROcodone 325 MG/10 MG TAB PO PRN ×3 (03:43→17:58)
[2016-06-18] MEDS: ceFAZolin 2 GM PREMIX 50 ML IV SCH (05:41)
[2016-06-18] MEDS: MORPHINE SULFATE 4 MG/ML INJ IV PRN (05:48)
[2016-06-18] MEDS: INSULIN ASPART SUPPLEMENTAL SCALE SQ SCH ×4 (06:14→20:36)
[2016-06-18 06:42] LABS: HEMATOCRIT 22.4 % (35.0-46.0); MEAN CELL VOLUME 70.2 FL (80.0-100.0); MEAN CORPUSCULAR HEMOGLOBIN 22.6 PG (27.0-34.0); MEAN CORPUSCULAR HGB CONC 32.2 % (32.0-36.0); PLATELET COUNT 126 TH/MM3 (150-450); RED BLOOD COUNT 3.19 MIL/MM3 (4.00-5.30); RED CELL DISTRIBUTION WIDTH 15.4 % (11.6-17.2); WHITE BLOOD COUNT 10.4 TH/MM3 (4.0-11.0)
[2016-06-18 06:45] LABS: REVIEW FLAG FINAL
[2016-06-18 07:05] LABS: BICARBONATE 24.5 MEQ/L (21.0-32.0); CALCIUM-PROTEIN CORRECTED 8.1 MG/DL (8.5-10.1); POTASSIUM 4.6 MEQ/L (3.5-5.1); TOTAL BILIRUBIN ADULT 0.6 MG/DL (0.2-1.0)
--- NOTE | 2016-06-18 07:54 | PD.ORT.PN ---
Subjective Subjective Remarks No significant complaints. Her son is at bedside. She speaks limited Ukrainian. The son speaks no Ukrainian. Objective Vitals Vital Signs Date Time Temp Pulse Resp B/P Pulse Ox O2 Delivery O2 Flow Rate FiO2 06/18/16 04:00 100.5 102 18 147/67 95 06/18/16 00:00 100.9 90 16 126/72 98 06/17/16 19:45 97.2 86 20 111/53 95 06/17/16 19:33 Nasal Cannula 3.00 06/17/16 18:34 95 Nasal Cannula 2.00 06/17/16 16:00 98.2 83 18 114/58 95 06/17/16 11:10 97.5 85 18 117/56 95 06/17/16 10:30 104 13 128/68 95 Nasal Cannula 3 06/17/16 10:15 98 12 128/68 93 Venturi Mask 6 35 06/17/16 10:00 100 12 134/70 98 Venturi Mask 6 50 06/17/16 09:45 102 12 151/63 93 Venturi Mask 6 50 06/17/16 09:40 99.2 105 12 151/63 93 Simple Mask 8 I/O 06/17/16 06/17/16 06/17/16 06/18/16 06/18/16 06/18/16 07:00 15:00 23:00 07:00 15:00 23:00 Intake Total 0 ml 980 ml 1210 ml 200 ml Output Total 800 ml 600 ml 250 ml 700 ml Balance -800 ml 380 ml 960 ml -500 ml Intake Oral 0 ml 480 ml 240 ml 200 ml IV Total 100 ml 970 ml Other 400 ml Output Urine Total 800 ml 250 ml 250 ml 700 ml Estimated Blood Loss 50 ml Other 300 ml # Bowel Movements 0 0 0 Result Diagram: 06/18/16 0535 06/18/16 0535 Imaging Last 24 hours Impressions Hip and Pelvis X-Ray 06/16/16 142 Signed Impressions: Service Date/Time: May 16:14 - CONCLUSION: Acute comminuted mildly displaced fracture involving the right proximal femur with extension into the intratrochanteric region. No additional fractures are visualized. Connie Horn MD Femur X-Ray 06/16/16 1423 Signed Impressions: Service Date/Time: May 16:14 - CONCLUSION: Comminuted mildly displaced fracture involving the left proximal femur with extension into the intertrochanteric region.. Connie Horn MD Chest X-Ray 06/16/16 1423 Signed Impressions: Service Date/Time: May 16:21 - CONCLUSION: 1. Cardiomegaly and chronic interstitial changes. No acute abnormality. Alfred Draper MD Objective Remarks RLE: pain with motion of hip. NVI with good motion of toes and ankle. Moderate swelling at thigh. No significant drainage. Dressing is dry Assessment & Plan Ortho Post Op Day #: 1 Problem List: Assessment and Plan Postop day #1 status post trochanteric nail for subtrochanteric fracture with percutaneous pinning of femoral neck fracture right hip. Toe-touch weight-bearing Lovenox /Xarelto SNF planning Discharge Monday or Monday Transfuse 2 units, PRBC Sree Grace MD Jun 18, 2016 07:54
[2016-06-18] MEDS: LACTATED RINGER'S 1000 ML IV SCH (08:00)
[2016-06-18] MEDS: HYDROCHLOROTHIAZIDE 12.5 MG CAP PO SCH (09:00)
[2016-06-18] MEDS: LOSARTAN 50 MG TAB PO SCH (09:00)
[2016-06-18] MEDS: METOPROLOL TARTRATE 50 MG TAB PO SCH (09:00)
[2016-06-18] MEDS: SODIUM CHLORIDE 0.9% FLUSH 5 ML FLUSH IVF SCH ×2 (09:00→20:36)
[2016-06-18] MEDS: OXYBUTYNIN CHLORIDE 5 MG TAB PO SCH ×2 (09:18→20:35)
[2016-06-18] MEDS: GABAPENTIN 100 MG CAP PO SCH ×3 (09:18→17:58)
[2016-06-18] MEDS: CITALOPRAM HYDROBROMIDE 40 MG TAB PO SCH (09:18)
[2016-06-18] MEDS: TAMOXIFEN CITRATE 10 MG TAB PO SCH (09:18)
[2016-06-18] MEDS: PANTOPRAZOLE SOD 20 MG DELAYED RELEASE TAB PO SCH (09:18)
[2016-06-18] MEDS: CHOLECALCIFEROL (VIT D3) 1000 UNIT TAB PO SCH (09:18)
[2016-06-18] MEDS: FERROUS SULFATE 325 MG (65 MG ELEMENTAL IRON) TAB PO SCH ×2 (09:18→20:35)
[2016-06-18] MEDS: CHOLECALCIFEROL (VIT D3) 5000 UNIT CAP PO SCH (09:19)
[2016-06-18] MEDS: FOLIC ACID 1 MG TAB PO SCH (09:19)
[2016-06-18] MEDS: SODIUM CHLORIDE 0.9% FLUSH 5 ML FLUSH FLUSH SCH ×2 (09:19→20:36)
--- NOTE | 2016-06-18 09:20 | RADRPT ---
EXAM DATE/TIME: 06/18/2016 08:41 [facility] COMPARISON: CHEST SINGLE AP, June 16, 2016, 16:21. INDICATIONS : Fever. MEDICAL HISTORY : Unobtainable SURGICAL HISTORY : Unobtainable ENCOUNTER: Initial ACUITY: 1 day PAIN SCORE: Non-responsive. LOCATION: chest FINDINGS: PA and lateral views of the chest demonstrate the lungs to be symmetrically aerated without evidence of mass, infiltrate or effusion. There is some linear atelectasis versus scarring in the left lower l julia. The cardiomediastinal contours are unremarkable. Osseous structures are intact. No significant changes compared to the prior study. CONCLUSION: Linear infiltrate in the left lower lung suggestive of atelectasis versus scarring. No significant ch jannet compared to the prior study. Ishan Patel MD on June 18, 2016 at 9:17 Board Certified Radiologist. This report was verified electronically.
[2016-06-18] MEDS: SODIUM CHLOR 0.9% 1000 ML INJ 1,000 ML IV SCH ×4 (10:00→20:26)
--- NOTE | 2016-06-18 10:05 | HHI.FPPN ---
Subjective Remarks Patient febrile up to 100.5 overnight with tachycardia up to 102. Vitals otherwise stable. She is requesting more ice this morning and is continuing to have pain in her right hip. Otherwise she denies any chest pain, shortness of breath, chills, nausea or vomiting. She is tolerating by mouth. (Melina Méndez MD R2) Objective Vitals Vital Signs Date Time Temp Pulse Resp B/P Pulse Ox O2 Delivery O2 Flow Rate FiO2 06/18/16 08:00 99.2 95 17 117/56 95 06/18/16 04:00 100.5 102 18 147/67 95 06/18/16 00:00 100.9 90 16 126/72 98 06/17/16 19:45 97.2 86 20 111/53 95 06/17/16 19:33 Nasal Cannula 3.00 06/17/16 18:34 95 Nasal Cannula 2.00 06/17/16 16:00 98.2 83 18 114/58 95 06/17/16 11:10 97.5 85 18 117/56 95 06/17/16 10:30 104 13 128/68 95 Nasal Cannula 3 06/17/16 10:15 98 12 128/68 93 Venturi Mask 6 35 06/17/16 10:00 100 12 134/70 98 Venturi Mask 6 50 I/O 06/17/16 06/17/16 06/17/16 06/18/16 06/18/16 06/18/16 07:00 15:00 23:00 07:00 15:00 23:00 Intake Total 0 ml 980 ml 1210 ml 200 ml Output Total 800 ml 600 ml 250 ml 700 ml Balance -800 ml 380 ml 960 ml -500 ml Intake Oral 0 ml 480 ml 240 ml 200 ml IV Total 100 ml 970 ml Other 400 ml Output Urine Total 800 ml 250 ml 250 ml 700 ml Estimated Blood Loss 50 ml Other 300 ml # Bowel Movements 0 0 0 (Melina Méndez MD R2) Result Diagram: 06/18/16 0535 06/18/16 0535 Imaging Last Impressions Chest X-Ray 06/18/16 0000 Signed Impressions: Service Date/Time: Saturday, June 18, 2016 08:41 - CONCLUSION: Linear infiltrate in the left lower lung suggestive of atelectasis versus scarring. No significant change compared to the prior study. Ishan Patel MD Femur X-Ray 06/17/16 0000 Signed Impressions: Service Date/Time: Friday, June 17, 2016 09:13 - CONCLUSION: Limited images as detailed above. Prudencio Medina Jr., MD Hip and Pelvis X-Ray 06/16/16 1423 Signed Impressions: Service Date/Time: May 16:14 - CONCLUSION: Acute comminuted mildly displaced fracture involving the right proximal femur with extension into the intratrochanteric region. No additional fractures are visualized. Connie Horn MD Objective Remarks CONSTITUTIONAL/GEN: normally nourished elderly female, in NAD. EYES: conjunctiva normal, PERRLA, EOMI. NECK: FROM without pain. LUNGS: clear A-P, respiratory effort is normal. CARDIOVASCULAR: RR with 3/6 ANDREW. No significant edema. GI/ABD: soft without masses, without organomegaly. Non-tender. NEURO: No focal deficits. SKIN: color normal, no rashes noted. MUSC: back is normal in appearance. Extremities are normal in appearance. PSYCH/MENTAL STATUS: Alert and oriented x 3. (Melina Méndez MD R2) Urinary Catheter: Yes Assessment to: Continue Farrell insert reason: Prolonged Immobilization (Melina Méndez MD R2) A/P Assessment and Plan Patient is a 76-year-old female with a past medical history significant for DM type II, MDD, breast cancer and HTN who presented after a fall and was admitted for right hip fracture. Discharge Planning Anticipate discharge in 2-3 days to inpatient rehab. sabina Vu (Melina Méndez MD R2) Attending Attestation Case reviewed and discussed with the resident team. Agree with plan of care as discussed with me and documented in the resident note. (Jak Vu MD) Problem List: (1) Intertrochanteric fracture of right femur Status: Acute Plan: Abdomen pelvis x-ray significant for acute comminuted mildly displaced fracture involving the right proximal femur with extension into the antrum trochanteric region. Plan: - Consult Orthopedic Surgery- s/p Reduction and intramedullary nail fixation of right subtrochanteric femur fracture, percutaneous pinning of right femoral neck fracture on 06/17/16 - H/H trending down to 7.2/22.4 today. Initial plan was to transfuse 2 units of packed red blood cells, however patient is a Jain and declines transfusion at this time. Continue to monitor H/H and provide supportive care. - Post-operative fever up to 100.5 with tachycardia up to 102. Will obtain CXR and blood culture. UA wnl. Will initiate antibiotics if infectious process is identified, however will hold off for now as patient is asymptomatic at this time. - Pain control with [place] 5-325mg PO Q4H PRN Pain 3-5, [place] 10-325mg PO Q4H PRN Pain 6-10, Morphine 4mg IV Q3H PRN Breakthrough Pain (2) DIAN (acute kidney injury) Status: Acute Plan: Creatinine 1.55 on admission, trending up to 1.71 today Continue gentle hydration with NS @ 100ml/hr (3) Type 2 diabetes mellitus with diabetic neuropathy Status: Chronic Plan: Hold home Lantus 80units SQ daily, Nateglinide 120mg PO BID, and Novolog SSI Diabetic Diet Bedside glucose ranging 120-275, requiring 18 units in the past 24 hours Will start Levemir 10 units HS Continue Accuchecks and Low-dose SSI (4) HTN (hypertension) Status: Chronic Plan: Continue home dose of Metoprolol 50mg PO daily, Losartan-HCTZ 50-12.5mg PO daily (5) MDD (major depressive disorder), recurrent episode, mild Status: Chronic Plan: Continue home dose of Remeron 15mg PO HS, Celexa 40mg PO Daily (6) Nutrition, metabolism, and development symptoms Status: Acute Plan: Fluids: Continue NS @ 100ml/hr Electrolytes: wnl, continue to monitor and replete as needed Nutrition: Diabetic Diet DVT PPx: SCD's, Lovenox held for acute anemia, will resume Lovenox 30mg SQ daily at noon on Monday (Melina Méndez MD R2) Problem Qualifiers (1) Intertrochanteric fracture of right femur: Qualified Code: S72.141A - Intertrochanteric fracture of right femur, closed, initial encounter (2) Type 2 diabetes mellitus with diabetic neuropathy: Qualified Code: E11.40 - Type 2 diabetes mellitus with diabetic neuropathy, with long-term current use of insulin (3) HTN (hypertension): Qualified Code: I10 - Essential hypertension Melina Méndez MD R2 Jun 18, 2016 10:05 Jak Vu MD Jun 19, 2016 13:02 Jak Vu MD Jun 19, 2016 13:02
[2016-06-18] MEDS ORDERED: CYCLOBENZAPRINE HCL 10 MG TAB PO ONE (11:45)
[2016-06-18] MEDS: MAGNESIUM HYDROXIDE SUSP 30 ML CUP PO PRN (17:59)
[2016-06-18] MEDS: MIRTAZAPINE 15 MG TAB PO SCH (20:35)
[2016-06-18] MEDS ORDERED: INSULIN DETEMIR 100 UNITS/ML VIAL SQ SCH (21:00)
[2016-06-19] VITALS (10 sets, daily range): BP systolic 109–178; BP diastolic 54–77; PULSE 65–111; RESP 17–18; TEMP 96.2–101; O2SAT 92–99
[2016-06-19] MEDS: ACETAMINOPHEN/HYDROcodone 325 MG/10 MG TAB PO PRN ×2 (01:10→09:03)
[2016-06-19] MEDS: MORPHINE SULFATE 4 MG/ML INJ IV PRN ×2 (04:23→20:00)
[2016-06-19 04:44] LABS: HEMATOCRIT 21.3 % (35.0-46.0); MEAN CELL VOLUME 70.1 FL (80.0-100.0); MEAN CORPUSCULAR HEMOGLOBIN 22.3 PG (27.0-34.0); MEAN CORPUSCULAR HGB CONC 31.9 % (32.0-36.0); PLATELET COUNT 130 TH/MM3 (150-450); RED BLOOD COUNT 3.04 MIL/MM3 (4.00-5.30); RED CELL DISTRIBUTION WIDTH 15.4 % (11.6-17.2); WHITE BLOOD COUNT 12.5 TH/MM3 (4.0-11.0)
[2016-06-19 04:51] LABS: REVIEW FLAG FINAL
[2016-06-19 05:10] LABS: BICARBONATE 26.5 MEQ/L (21.0-32.0); POTASSIUM 4.9 MEQ/L (3.5-5.1)
[2016-06-19] MEDS: INSULIN ASPART SUPPLEMENTAL SCALE SQ SCH ×4 (06:45→20:01)
--- NOTE | 2016-06-19 07:59 | PD.ORT.PN ---
Subjective Subjective Remarks No significant complaints. Her son is at bedside. She speaks limited German. The son speaks no German. Objective Vitals Vital Signs Date Time Temp Pulse Resp B/P Pulse Ox O2 Delivery O2 Flow Rate FiO2 06/19/16 05:32 147/65 06/19/16 03:40 97.0 111 18 178/77 96 06/19/16 00:30 100.7 108 17 160/72 96 06/18/16 20:35 96 Nasal Cannula 2.00 06/18/16 20:10 100.9 105 17 143/64 97 06/18/16 16:00 100.8 97 17 136/63 100 06/18/16 12:00 98.2 95 17 120/56 95 06/18/16 10:57 93 Nasal Cannula 2.00 06/18/16 08:00 99.2 95 17 117/56 95 I/O 06/18/16 06/18/16 06/18/16 06/19/16 06/19/16 06/19/16 07:00 15:00 23:00 07:00 15:00 23:00 Intake Total 200 ml 720 ml 480 ml 480 ml Output Total 700 ml 1000 ml 250 ml Balance -500 ml -280 ml 230 ml 480 ml Intake Oral 200 ml 720 ml 480 ml 480 ml Output Urine Total 700 ml 1000 ml 250 ml # Voids 0 2 # Bowel Movements 0 0 0 0 Result Diagram: 06/19/1641206/19/16 041 Imaging Last 24 hours Impressions Hip and Pelvis X-Ray 06/16/161422 Signed Impressions: Service Date/Time: May 16:14 - CONCLUSION: Acute comminuted mildly displaced fracture involving the right proximal femur with extension into the intratrochanteric region. No additional fractures are visualized. Connie Horn MD Femur X-Ray 06/16/161422 Signed Impressions: Service Date/Time: May 16:14 - CONCLUSION: Comminuted mildly displaced fracture involving the left proximal femur with extension into the intertrochanteric region.. Connie Horn MD Chest X-Ray 06/16/161422 Signed Impressions: Service Date/Time: May 16:21 - CONCLUSION: 1. Cardiomegaly and chronic interstitial changes. No acute abnormality. Alfred Draper MD Objective Remarks RLE: pain with motion of hip. NVI with good motion of toes and ankle. Moderate swelling at thigh. No change from yesterday No significant drainage. Dressing is dry Assessment & Plan Ortho Post Op Day #: 2 Problem List: Assessment and Plan Postop day #2 status post trochanteric nail for subtrochanteric fracture with percutaneous pinning of femoral neck fracture right hip. Toe-touch weight-bearing Lovenox /Xarelto, on hold due to low hemoglobin SNF planning Discharge pending Unable to Transfuse 2 units, PRBC due to Latter day Sree Grace MD Jun 19, 2016 07:58
[2016-06-19] MEDS: SODIUM CHLORIDE 0.9% FLUSH 5 ML FLUSH IVF SCH ×2 (09:00→20:01)
[2016-06-19] MEDS: LOSARTAN 50 MG TAB PO SCH (09:01)
[2016-06-19] MEDS: GABAPENTIN 100 MG CAP PO SCH ×3 (09:01→17:36)
[2016-06-19] MEDS: FOLIC ACID 1 MG TAB PO SCH (09:02)
[2016-06-19] MEDS: FERROUS SULFATE 325 MG (65 MG ELEMENTAL IRON) TAB PO SCH ×2 (09:02→20:00)
[2016-06-19] MEDS: CITALOPRAM HYDROBROMIDE 40 MG TAB PO SCH (09:02)
[2016-06-19] MEDS: OXYBUTYNIN CHLORIDE 5 MG TAB PO SCH ×2 (09:02→20:00)
[2016-06-19] MEDS: SODIUM CHLORIDE 0.9% FLUSH 5 ML FLUSH FLUSH SCH ×2 (09:02→20:01)
[2016-06-19] MEDS: TAMOXIFEN CITRATE 10 MG TAB PO SCH (09:02)
[2016-06-19] MEDS: CHOLECALCIFEROL (VIT D3) 5000 UNIT CAP PO SCH (09:02)
[2016-06-19] MEDS: CHOLECALCIFEROL (VIT D3) 1000 UNIT TAB PO SCH (09:02)
[2016-06-19] MEDS: HYDROCHLOROTHIAZIDE 12.5 MG CAP PO SCH (09:02)
[2016-06-19] MEDS: METOPROLOL TARTRATE 50 MG TAB PO SCH (09:03)
[2016-06-19] MEDS: PANTOPRAZOLE SOD 20 MG DELAYED RELEASE TAB PO SCH (09:03)
--- NOTE | 2016-06-19 11:35 | HHI.FPPN ---
Subjective Remarks Exam limited as patient is lithuanian speaking only. POD 2. Overnight, febrile to 100.9F, afebrile this morning. Hypertensive to 170/80, likely secondary to pain. Breathing well on room air. Good UOP. Has not yet had bowel movement. Of note, is receiving opioid pain meds and iron pills. Eating without difficulty. Has had limited ambulation secondary to hip injury and pain. Working with PT. Pt complains of pain in R hip that is stabbing and intermittent. She denies chest pain or shortness of breath. She asked if she had metal in her hip. Critical Hgb of 6.8 noted by team, pt is Faith and again refused blood transfusion. (Seema Zaragoza MD R1) Objective Vitals Vital Signs Date Time Temp Pulse Resp B/P Pulse Ox O2 Delivery O2 Flow Rate FiO2 06/19/16 09:40 97 21 06/19/16 09:03 Nasal Cannula 2.00 06/19/16 08:00 96.2 106 17 154/68 92 06/19/16 05:32 147/65 06/19/16 03:40 97.0 111 18 178/77 96 06/19/16 00:30 100.7 108 17 160/72 96 06/18/16 20:35 96 Nasal Cannula 2.00 06/18/16 20:10 100.9 105 17 143/64 97 06/18/16 16:00 100.8 97 17 136/63 100 06/18/16 12:00 98.2 95 17 120/56 95 I/O 06/18/16 06/18/16 06/18/16 06/19/16 06/19/16 06/19/16 07:00 15:00 23:00 07:00 15:00 23:00 Intake Total 200 ml 720 ml 480 ml 480 ml Output Total 700 ml 1000 ml 250 ml Balance -500 ml -280 ml 230 ml 480 ml Intake Oral 200 ml 720 ml 480 ml 480 ml Output Urine Total 700 ml 1000 ml 250 ml # Voids 0 2 # Bowel Movements 0 0 0 0 (Seema Zaragoza MD R1) Result Diagram: 06/19/16 0413 06/19/16 0413 Imaging Last Impressions Chest X-Ray 06/18/16 0000 Signed Impressions: Service Date/Time: Saturday, June 18, 2016 08:41 - CONCLUSION: Linear infiltrate in the left lower lung suggestive of atelectasis versus scarring. No significant change compared to the prior study. Ishan Patel MD Femur X-Ray 06/17/16 0000 Signed Impressions: Service Date/Time: Friday, June 17, 2016 09:13 - CONCLUSION: Limited images as detailed above. Prudencio Medina Jr., MD Hip and Pelvis X-Ray 06/16/16 1423 Signed Impressions: Service Date/Time: May 16:14 - CONCLUSION: Acute comminuted mildly displaced fracture involving the right proximal femur with extension into the intratrochanteric region. No additional fractures are visualized. Connie Horn MD Objective Remarks CONSTITUTIONAL/GEN: obese elderly female, in NAD. EYES: conjunctiva normal, PERRLA, EOMI. LUNGS: anterior lung exam CTAB. No wheezing. Incentive Spirometer at bedside- pt demonstrated how to use properly, stated using every hour CARDIOVASCULAR: RRR. No ANDREW noted No significant edema. GI/ABD: Soft without masses, without organomegaly. Non-tender. NEURO: No focal deficits. SKIN: color normal, no rashes noted. MUSC: multiple bandages on R hip- c/d/i. PSYCH/MENTAL STATUS: Alert and oriented x 3. French speaking only. (Seema Zaragoza MD R1) Urinary Catheter: No (Seema Zaragoza MD R1) Vascular Central Line Catheter: No (Seema Zaragoza MD R1) A/P Assessment and Plan 76y female with DM2, MDD, breast cancer and HTN who presented after a fall and was admitted 06/16/16 for right hip fracture. S/p trochanteric nail for subtrochanteric fracture with percutaneous pinning of femoral neck fracture right hip 06/17/16 (Dr. Tejeda) Discharge Planning Anticipate discharge in 1-2 days to SNF. Case management assisting with discharge. SDW: Dr. Vu (Seema Zaragoza MD R1) Attending Attestation Patient seen and examined. Case reviewed and discussed with the resident team. Agree with plan of care as discussed with me and documented in the resident note. (Jak Vu MD) Problem List: (1) Intertrochanteric fracture of right femur Status: Acute Plan: Abdomen pelvis x-ray significant for acute comminuted mildly displaced fracture involving the right proximal femur with extension into the antrum trochanteric region. Plan: - Consult Orthopedic Surgery S/p Reduction and intramedullary nail fixation of right subtrochanteric femur fracture, percutaneous pinning of right femoral neck fracture on 06/17/16 Physical therapy daily, recommend d/c to SNF Toe Touch Weight Bearing -Recommend OOB to chair today, as tolerated - Post-operative fever and tachycardia CXR- R atelectasis- continue insentive spirometer Blood culture (06/18)- no growth x1 day Will initiate antibiotics if infectious process is identified, however will hold off for now as patient is asymptomatic at this time. - Pain control [place] 5-325mg PO Q4H PRN Pain 3-5 [place] 10-325mg PO Q4H PRN Pain 6-10 Morphine 4mg IV Q3H PRN Breakthrough Pain -Bowel Regimen -Milk of Mg PRN -Added Docusate-Senna 2 tabs HS SKYLAR (2) DIAN (acute kidney injury) Status: Acute Plan: Creatinine 1.5 on admission, trending up to 1.7, now downtrending -Discontinue fluids as good po -Daily BMP (3) Type 2 diabetes mellitus with diabetic neuropathy Status: Chronic Plan: Hold home Lantus 80units SQ daily, Nateglinide 120mg PO BID, and Novolog SSI -Sugars in low 300s- requiring 21 units in the past 24 hours Plan -Diabetic Diet -Increase Levemir from 10 units to 20 units HS -Continue Accuchecks and Low-dose SSI (4) Anemia Status: Chronic Plan: Microcytic anemia on admission, with [id number] secondary to blood loss secondary to surgery and likely hematoma of R hip. Plan -Daily BMP with transfusion threshold <7 -Hbg of 6.8 today -Patient is a Faith and declines transfusion of two units RBC at this time -Continue supportive care -Will restart Lovenox 30mg SQ daily 06/19- if H/H continues to fall may need to d/c -Hgb electrophoresis and ferritin level in AM -Ferritin 2006 was normal -Continue Iron supplementation 325mg PO BID (5) HTN (hypertension) Status: Chronic Plan: Continue home dose of Metoprolol 50mg PO daily, Losartan-HCTZ 50-12.5mg PO daily (6) MDD (major depressive disorder), recurrent episode, mild Status: Chronic Plan: Continue home dose of Remeron 15mg PO HS, Celexa 40mg PO Daily (7) Nutrition, metabolism, and development symptoms Status: Acute Plan: Fluids: Per PO Electrolytes: wnl, continue to monitor and replete as needed Nutrition: Diabetic Diet DVT PPx: SCD's + resume Lovenox 30mg SQ daily- will continue to monitor H/H tomorrow morning and consider D/c if worsening anemia GI ppx: not indicated OOB with assistance- nursing order to encourage OOB to chair as tolerated (Seema Zaragoza MD R1) Problem Qualifiers (1) Intertrochanteric fracture of right femur: Qualified Code: S72.141A - Intertrochanteric fracture of right femur, closed, initial encounter (2) Type 2 diabetes mellitus with diabetic neuropathy: Qualified Code: E11.40 - Type 2 diabetes mellitus with diabetic neuropathy, with long-term current use of insulin (3) HTN (hypertension): Qualified Code: I10 - Essential hypertension Seema Zaragoza MD R1 Jun 19, 2016 11:35 Jak Vu MD Jun 19, 2016 13:16
[2016-06-19] MEDS: ENOXAPARIN SODIUM 30 MG/0.3 ML SYRINGE SQ SCH (12:10)
[2016-06-19] MEDS: ACETAMINOPHEN/HYDROcodone 325 MG/5 MG TAB PO PRN ×2 (13:29→17:36)
[2016-06-19] MEDS: MAGNESIUM HYDROXIDE SUSP 30 ML CUP PO PRN (18:00)
[2016-06-19] MEDS: MIRTAZAPINE 15 MG TAB PO SCH (20:00)
[2016-06-19] MEDS: DOCUSATE SODIUM 50 MG/SENNA 8.6 MG TAB PO SCH (20:00)
[2016-06-19] MEDS: INSULIN DETEMIR 100 UNITS/ML VIAL SQ SCH (20:01)
[2016-06-20] VITALS (7 sets, daily range): BP systolic 117–161; BP diastolic 56–70; PULSE 83–95; RESP 14–18; TEMP 98.6–100.8; O2SAT 95–97
[2016-06-20 04:35] LABS: HEMATOCRIT 23.7 % (35.0-46.0); MEAN CELL VOLUME 70.3 FL (80.0-100.0); MEAN CORPUSCULAR HEMOGLOBIN 22.2 PG (27.0-34.0); MEAN CORPUSCULAR HGB CONC 31.5 % (32.0-36.0); PLATELET COUNT 164 TH/MM3 (150-450); RED BLOOD COUNT 3.38 MIL/MM3 (4.00-5.30); RED CELL DISTRIBUTION WIDTH 15.3 % (11.6-17.2); WHITE BLOOD COUNT 15.3 TH/MM3 (4.0-11.0)
[2016-06-20 04:40] LABS: REVIEW FLAG FINAL
[2016-06-20 05:02] LABS: ALT (GPT) 22 U/L (10-53); CHLORIDE 102 MEQ/L (98-107); POTASSIUM 4.5 MEQ/L (3.5-5.1); SODIUM (NA) 135 MEQ/L (136-145)
[2016-06-20 05:38] LABS: ALKALINE PHOSPHATASE 95 U/L (45-117); ANION GAP 7 MEQ/L (5-15); AST (GOT) 22 U/L (15-37); BLOOD UREA NITROGEN 25 MG/DL (7-18); FERRITIN 946 NG/ML (8-252); GLOMERULAR FILTRATION RATE 43 ML/MIN (>89); TOTAL BILIRUBIN ADULT 0.8 MG/DL (0.2-1.0)
[2016-06-20] MEDS: ACETAMINOPHEN/HYDROcodone 325 MG/5 MG TAB PO PRN (05:54)
[2016-06-20] MEDS: MAGNESIUM HYDROXIDE SUSP 30 ML CUP PO PRN (05:54)
[2016-06-20] MEDS: INSULIN ASPART SUPPLEMENTAL SCALE SQ SCH ×4 (06:45→21:11)
--- NOTE | 2016-06-20 06:56 | PD.ORT.PN ---
Subjective Subjective Remarks Pain controlled. No new complaints Objective Vitals Vital Signs Date Time Temp Pulse Resp B/P Pulse Ox O2 Delivery O2 Flow Rate FiO2 06/20/16 03:50 99.3 95 17 161/70 97 06/19/16 23:45 99.4 87 17 138/62 97 06/19/16 20:10 99.1 83 17 133/62 99 06/19/16 19:58 99 Nasal Cannula 2.00 06/19/16 17:54 98.7 06/19/16 16:00 101.0 82 17 120/54 98 06/19/16 12:00 99.3 65 17 109/63 96 06/19/16 09:40 97 21 06/19/16 09:03 Nasal Cannula 2.00 06/19/16 08:00 96.2 106 17 154/68 92 I/O 06/19/16 06/19/16 06/19/16 06/20/16 06/20/16 06/20/16 07:00 15:00 23:00 07:00 15:00 23:00 Intake Total 480 ml 960 ml 480 ml 240 ml Balance 480 ml 960 ml 480 ml 240 ml Intake Oral 480 ml 960 ml 480 ml 240 ml # Voids 2 3 2 2 # Bowel Movements 0 0 0 0 Result Diagram: 06/20/1640806/20/16408 Imaging Last 24 hours Impressions Hip and Pelvis X-Ray 06/16/161422 Signed Impressions: Service Date/Time: May 16:14 - CONCLUSION: Acute comminuted mildly displaced fracture involving the right proximal femur with extension into the intratrochanteric region. No additional fractures are visualized. Connie Horn MD Femur X-Ray 06/16/161422 Signed Impressions: Service Date/Time: May 16:14 - CONCLUSION: Comminuted mildly displaced fracture involving the left proximal femur with extension into the intertrochanteric region.. Connie Horn MD Chest X-Ray 06/16/161422 Signed Impressions: Service Date/Time: May 16:21 - CONCLUSION: 1. Cardiomegaly and chronic interstitial changes. No acute abnormality. Alfred Draper MD Objective Remarks RLE: pain with motion of hip. NVI with good motion of toes and ankle. Moderate swelling at thigh. No significant drainage. Dressing is dry Assessment & Plan Assessment and Plan Postop day #3 status post trochanteric nail for subtrochanteric fracture with percutaneous pinning of femoral neck fracture right hip. Toe-touch weight-bearing right lower extremity Lovenox /Xarelto, on hold due to low hemoglobin SNF planning Discharge pending when patient is cleared by medical. She is orthopedically cleared Unable to Transfuse PRBC due to Congregation -hemoglobin has improved from 6.8 - 7.5 Incentive spirometry Follow-up appointment with Dr. Banks or REJI in 2 weeks LORENE PALMER PA-C Jun 20, 2016 06:56
--- NOTE | 2016-06-20 08:39 | HHI.FPPN ---
Subjective Remarks Patient seen and examined this morning. Afebrile vital signs stable. Awaiting improvement of hemoglobin and hematocrit as patient is unable to receive blood transfusion due to being a Evangelical. Hemoglobin improved today 7.5 from 6.8. Difficult to communicate with the patient as she is [place]-speaking only. She does report that she is only having a little bit of pain in her leg. She understands the plan is to go to rehabilitation once her hemoglobin is stable. (Joe Patterson MD R2) Objective Vitals Vital Signs Date Time Temp Pulse Resp B/P Pulse Ox O2 Delivery O2 Flow Rate FiO2 06/20/16 03:50 99.3 95 17 161/70 97 06/19/16 23:45 99.4 87 17 138/62 97 06/19/16 20:10 99.1 83 17 133/62 99 06/19/16 19:58 99 Nasal Cannula 2.00 06/19/16 17:54 98.7 06/19/16 16:00 101.0 82 17 120/54 98 06/19/16 12:00 99.3 65 17 109/63 96 06/19/16 09:40 97 21 06/19/16 09:03 Nasal Cannula 2.00 I/O 06/19/16 06/19/16 06/19/16 06/20/16 06/20/16 06/20/16 07:00 15:00 23:00 07:00 15:00 23:00 Intake Total 480 ml 960 ml 480 ml 240 ml Balance 480 ml 960 ml 480 ml 240 ml Intake Oral 480 ml 960 ml 480 ml 240 ml # Voids 2 3 2 2 # Bowel Movements 0 0 0 0 (Joe Patterson MD R2) Result Diagram: 06/20/16 0409 06/20/16 0409 Imaging Last Impressions Chest X-Ray 06/18/16 0000 Signed Impressions: Service Date/Time: Saturday, June 18, 2016 08:41 - CONCLUSION: Linear infiltrate in the left lower lung suggestive of atelectasis versus scarring. No significant change compared to the prior study. Ishan Patel MD Femur X-Ray 06/17/16 0000 Signed Impressions: Service Date/Time: Friday, June 17, 2016 09:13 - CONCLUSION: Limited images as detailed above. Prudencio Medina Jr., MD Hip and Pelvis X-Ray 06/16/16 5991 Signed Impressions: Service Date/Time: May 16:14 - CONCLUSION: Acute comminuted mildly displaced fracture involving the right proximal femur with extension into the intratrochanteric region. No additional fractures are visualized. Connie Horn MD Objective Remarks CONSTITUTIONAL/GEN: obese elderly female, in NAD. EYES: conjunctiva normal, PERRLA, EOMI. LUNGS: anterior lung exam CTAB. No wheezing. Incentive Spirometer at bedside- pt demonstrated how to use properly, stated using every hour CARDIOVASCULAR: RRR. No ANDREW noted No significant edema. GI/ABD: Soft without masses, without organomegaly. Non-tender. NEURO: No focal deficits. SKIN: color normal, no rashes noted. MUSC: multiple bandages on R hip- c/d/i. PSYCH/MENTAL STATUS: Alert and oriented x 3. [place] speaking only. Procedures S/p trochanteric nail for subtrochanteric fracture with percutaneous pinning of femoral neck fracture right hip 06/17/16 (Dr. Tejeda) Medications and IVs Current Medications Medications (Trade) Dose Ordered Sig/[place] Route Start Time Stop Time Status Last Admin (NS Flush) 2 ml UNSCH PRN FLUSH 06/16/16 17:30 (NS Flush) 2 ml BID FLUSH 06/16/16 21:00 06/19/16 20:01 (Tylenol) 650 mg Q4H PRN PO 06/16/16 17:30 (Zofran Inj) 4 mg Q6H PRN IVP 06/16/16 17:30 (Milk Of Magnesia Liq) 30 ml Q12H PRN PO 06/16/16 17:30 06/20/16 05:54 (Narcan Inj) 0.4 mg UNSCH PRN IV 06/16/16 17:30 ([place] 5-325 Mg) 1 tab Q4H PRN PO 06/16/16 17:30 06/20/16 05:54 ([place] 10-325 Mg) 1 tab Q4H PRN PO 06/16/16 17:30 06/19/16 09:03 (Morphine Inj) 4 mg Q3H PRN IV 06/16/16 17:30 06/19/16 20:00 (Narcan Inj) 0.4 mg UNSCH PRN IV 06/16/16 17:30 (Vitamin D3) 1,000 units DAILY PO 06/17/16 09:00 06/19/16 09:02 (CeleXA) 40 mg DAILY PO 06/17/16 09:00 06/19/16 09:02 (Ferrous Sulfate) 325 mg BID PO 06/16/16 21:00 06/19/16 20:00 (Folate) 1 mg DAILY PO 06/17/16 09:00 06/19/16 09:02 (Neurontin) 200 mg TID PO 06/16/16 18:00 06/19/16 17:36 (Lopressor) 50 mg DAILY PO 06/17/16 09:00 06/19/16 09:03 (Remeron) 15 mg HS PO 06/16/16 21:00 06/19/16 20:00 (Protonix) 20 mg DAILY PO 06/17/16 09:00 06/19/16 09:03 (Ditropan) 5 mg Q12HR PO 06/16/16 21:00 06/19/16 20:00 (Nolvadex) 20 mg DAILY PO 06/17/16 09:00 06/19/16 09:02 (D50w (Vial) Inj) 25 ml UNSCH PRN IV PUSH 06/16/16 17:30 (Glucagon Inj) 1 mg UNSCH PRN OTHER 06/16/16 17:30 (Cozaar) 50 mg DAILY PO 06/17/16 09:00 06/19/16 09:01 (Microzide) 12.5 mg DAILY PO 06/17/16 09:00 06/19/16 09:02 (NS Flush) 2 ml UNSCH PRN IVF 06/17/16 09:30 (NS Flush) 2 ml BID IVF 06/17/16 21:00 (Vitamin D3) 5,000 units DAILY PO 06/18/16 09:00 06/19/16 09:02 (Miryam-Colace) 2 tab HS PO 06/19/16 21:00 06/19/16 20:00 (Levemir Inj) 20 units HS SQ 06/19/16 21:00 06/19/16 20:01 (Lovenox Inj) 30 mg Q24H SQ 06/19/16 12:00 06/19/16 12:10 (Joe Patterson MD R2) A/P Assessment and Plan 76y female with DM2, MDD, breast cancer and HTN who presented after a fall and was admitted 06/16/16 for right hip fracture. S/p trochanteric nail for subtrochanteric fracture with percutaneous pinning of femoral neck fracture right hip 06/17/16 (Dr. Tejeda) Discharge Planning Anticipate discharge in 1-2 days to SNF. Case management assisting with discharge. SDW: Dr. Vu (Joe Patterson MD R2) Attending Attestation Case reviewed and discussed with the resident team. Agree with plan of care as discussed with me and documented in the resident note. (Jak Vu MD) Problem List: (1) Intertrochanteric fracture of right femur Status: Acute Plan: Abdomen pelvis x-ray significant for acute comminuted mildly displaced fracture involving the right proximal femur with extension into the antrum trochanteric region. Plan: - Consult Orthopedic Surgery S/p Reduction and intramedullary nail fixation of right subtrochanteric femur fracture, percutaneous pinning of right femoral neck fracture on 06/17/16 Physical therapy daily, recommend d/c to SNF Toe Touch Weight Bearing -Recommend OOB to chair as tolerated - Post-operative fever and tachycardia CXR- R atelectasis- continue incentive spirometer Blood culture (06/18)- no growth x1 day Will initiate antibiotics if infectious process is identified, however will hold off for now as patient is asymptomatic at this time. - Pain control [place] 5-325mg PO Q4H PRN Pain 3-5 [place] 10-325mg PO Q4H PRN Pain 6-10 Morphine 4mg IV Q3H PRN Breakthrough Pain -Bowel Regimen -Milk of Mg PRN -Added Docusate-Senna 2 tabs HS [place] (2) DIAN (acute kidney injury) Status: Acute Plan: Creatinine 1.5 on admission, trending up to 1.7, now downtrending currently 1.4 -Discontinue fluids as good po -Daily BMP (3) Type 2 diabetes mellitus with diabetic neuropathy Status: Chronic Plan: Hold home Lantus 80units SQ daily, Nateglinide 120mg PO BID, and Novolog SSI -Sugars in low 300s- requiring 21 units in the past 24 hours Plan -Diabetic Diet -Increase Levemir from 10 units to 20 units HS -Continue Accuchecks and Low-dose SSI (4) Anemia Status: Chronic Plan: Microcytic anemia on admission, with [id number] secondary to blood loss secondary to surgery and likely hematoma of R hip. Plan -Daily CBC unable to transfuse as patient is Evangelical -Hbg of 7.5 today -Patient is a Evangelical and declines transfusion of two units RBC at this time -Continue supportive care -Will restart Lovenox 30mg SQ daily 06/19- if H/H continues to fall may need to d/c -Hgb electrophoresis and ferritin level in AM -Ferritin 2006 was normal -Continue Iron supplementation 325mg PO BID (5) HTN (hypertension) Status: Chronic Plan: Continue home dose of Metoprolol 50mg PO daily, Losartan-HCTZ 50-12.5mg PO daily (6) MDD (major depressive disorder), recurrent episode, mild Status: Chronic Plan: Continue home dose of Remeron 15mg PO HS, Celexa 40mg PO Daily (7) Nutrition, metabolism, and development symptoms Status: Acute Plan: Fluids: Per PO Electrolytes: wnl, continue to monitor and replete as needed Nutrition: Diabetic Diet DVT PPx: SCD's only at this time due to low H&H resulting in the anemia will consider restarting Lovenox 30mg SQ daily today due to improvement in hemoglobin \ GI ppx: not indicated OOB with assistance- nursing order to encourage OOB to chair as tolerated (Joe Patterson MD R2) Problem Qualifiers (1) Intertrochanteric fracture of right femur: Qualified Code: S72.141A - Intertrochanteric fracture of right femur, closed, initial encounter (2) Type 2 diabetes mellitus with diabetic neuropathy: Qualified Code: E11.40 - Type 2 diabetes mellitus with diabetic neuropathy, with long-term current use of insulin (3) HTN (hypertension): Qualified Code: I10 - Essential hypertension Joe Patterson MD R2 Jun 20, 2016 08:38 Jak Vu MD Jun 20, 2016 15:00
[2016-06-20] MEDS: SODIUM CHLORIDE 0.9% FLUSH 5 ML FLUSH IVF SCH ×2 (09:00→20:55)
[2016-06-20] MEDS: FOLIC ACID 1 MG TAB PO SCH (09:54)
[2016-06-20] MEDS: CHOLECALCIFEROL (VIT D3) 1000 UNIT TAB PO SCH (09:54)
[2016-06-20] MEDS: GABAPENTIN 100 MG CAP PO SCH ×3 (09:54→18:49)
[2016-06-20] MEDS: FERROUS SULFATE 325 MG (65 MG ELEMENTAL IRON) TAB PO SCH ×2 (09:54→21:02)
[2016-06-20] MEDS: TAMOXIFEN CITRATE 10 MG TAB PO SCH (09:54)
[2016-06-20] MEDS: OXYBUTYNIN CHLORIDE 5 MG TAB PO SCH ×2 (09:54→21:02)
[2016-06-20] MEDS: CHOLECALCIFEROL (VIT D3) 5000 UNIT CAP PO SCH (09:54)
[2016-06-20] MEDS: HYDROCHLOROTHIAZIDE 12.5 MG CAP PO SCH (09:55)
[2016-06-20] MEDS: LOSARTAN 50 MG TAB PO SCH (09:55)
[2016-06-20] MEDS: PANTOPRAZOLE SOD 20 MG DELAYED RELEASE TAB PO SCH (09:55)
[2016-06-20] MEDS: CITALOPRAM HYDROBROMIDE 40 MG TAB PO SCH (09:55)
[2016-06-20] MEDS: METOPROLOL TARTRATE 50 MG TAB PO SCH (09:55)
[2016-06-20] MEDS: ACETAMINOPHEN/HYDROcodone 325 MG/10 MG TAB PO PRN ×3 (09:56→21:02)
[2016-06-20] MEDS: SODIUM CHLORIDE 0.9% FLUSH 5 ML FLUSH FLUSH SCH ×2 (09:57→21:00)
[2016-06-20] MEDS: ENOXAPARIN SODIUM 30 MG/0.3 ML SYRINGE SQ SCH (12:00)
[2016-06-20 20:31] LABS: BLOOD, URINE NEG (NEG); COMMENT (UR) CULT NOT INDICATED; CULTURE IF INDICATED CULT NOT INDICATED; GLUCOSE,URINE NEG (NEG); KETONE, URINE NEG (NEG); MUCUS URINE FEW /lpf (OCC); NITRITE,URINE NEG (NEG); SQUAMOUS EPITHELIAL CELL URINE 2 /hpf (0-5); URINE COLOR YELLOW (YELLW/STRAW)
[2016-06-20] MEDS: MIRTAZAPINE 15 MG TAB PO SCH (21:02)
[2016-06-20] MEDS: DOCUSATE SODIUM 50 MG/SENNA 8.6 MG TAB PO SCH (21:02)
[2016-06-20] MEDS: INSULIN DETEMIR 100 UNITS/ML VIAL SQ SCH (21:03)
[2016-06-21] VITALS (7 sets, daily range): BP systolic 111–173; BP diastolic 65–84; PULSE 72–93; RESP 18–20; TEMP 97.1–99.4; O2SAT 93–100
[2016-06-21] MEDS: INSULIN ASPART SUPPLEMENTAL SCALE SQ SCH ×3 (06:21→21:17)
--- NOTE | 2016-06-21 06:42 | PD.ORT.PN ---
Subjective Subjective Remarks Pain controlled. No new complaints Objective Vitals Vital Signs Date Time Temp Pulse Resp B/P Pulse Ox O2 Delivery O2 Flow Rate FiO2 06/21/16 00:05 98.8 82 19 150/67 99 06/20/16 21:02 Nasal Cannula 2.00 06/20/16 20:00 98.6 86 18 117/56 95 06/20/16 18:37 97 21 06/20/16 16:00 100.8 85 16 129/67 97 06/20/16 12:00 99.9 83 16 133/59 97 06/20/16 11:30 96 Nasal Cannula 2.00 06/20/16 08:00 99.0 91 14 144/65 95 I/O 06/20/16 06/20/16 06/20/16 06/21/16 06/21/16 06/21/16 07:00 15:00 23:00 07:00 15:00 23:00 Intake Total 240 ml 1000 ml 240 ml Output Total 1300 ml Balance 240 ml -300 ml 240 ml Intake Oral 240 ml 1000 ml 240 ml Output Urine Total 1300 ml # Voids 2 2 1 # Bowel Movements 0 0 Result Diagram: 06/20/16 0409 06/20/16 0409 Imaging Last 24 hours Impressions Hip and Pelvis X-Ray 06/16/161422 Signed Impressions: Service Date/Time: May 16:14 - CONCLUSION: Acute comminuted mildly displaced fracture involving the right proximal femur with extension into the intratrochanteric region. No additional fractures are visualized. Connie Horn MD Femur X-Ray 06/16/161422 Signed Impressions: Service Date/Time: May 16:14 - CONCLUSION: Comminuted mildly displaced fracture involving the left proximal femur with extension into the intertrochanteric region.. Connie Horn MD Chest X-Ray 06/16/161422 Signed Impressions: Service Date/Time: May 16:21 - CONCLUSION: 1. Cardiomegaly and chronic interstitial changes. No acute abnormality. Alfred Draper MD Objective Remarks RLE: moderate pain with motion of hip. NVI with good motion of toes and ankle. Moderate swelling at thigh. No significant drainage. Dressing is dry Assessment & Plan Assessment and Plan Postop day #4 status post trochanteric nail for subtrochanteric fracture with percutaneous pinning of femoral neck fracture right hip. Toe-touch weight-bearing right lower extremity Lovenox /Xarelto, on hold due to low hemoglobin SNF planning Discharge pending when patient is cleared by medical. She is orthopedically cleared Unable to Transfuse PRBC due to Restorationist -H&H pending this morning Incentive spirometry Follow-up appointment with Dr. Banks or REJI in 2 weeks LORENE PALMER PA-C Jun 21, 2016 06:41
[2016-06-21] MEDS: SODIUM CHLORIDE 0.9% FLUSH 5 ML FLUSH IVF SCH ×2 (07:54→21:00)
[2016-06-21] MEDS: PANTOPRAZOLE SOD 20 MG DELAYED RELEASE TAB PO SCH (08:00)
[2016-06-21] MEDS: LOSARTAN 50 MG TAB PO SCH (08:00)
[2016-06-21] MEDS: GABAPENTIN 100 MG CAP PO SCH ×3 (08:00→15:52)
[2016-06-21] MEDS: MAGNESIUM HYDROXIDE SUSP 30 ML CUP PO PRN (08:00)
[2016-06-21] MEDS: TAMOXIFEN CITRATE 10 MG TAB PO SCH (08:01)
[2016-06-21] MEDS: OXYBUTYNIN CHLORIDE 5 MG TAB PO SCH ×2 (08:01→21:10)
[2016-06-21] MEDS: FERROUS SULFATE 325 MG (65 MG ELEMENTAL IRON) TAB PO SCH ×2 (08:01→21:10)
[2016-06-21] MEDS: CHOLECALCIFEROL (VIT D3) 5000 UNIT CAP PO SCH (08:01)
[2016-06-21] MEDS: FOLIC ACID 1 MG TAB PO SCH (08:01)
[2016-06-21] MEDS: ACETAMINOPHEN/HYDROcodone 325 MG/10 MG TAB PO PRN ×4 (08:02→21:10)
[2016-06-21] MEDS: METOPROLOL TARTRATE 50 MG TAB PO SCH (08:02)
[2016-06-21] MEDS: CITALOPRAM HYDROBROMIDE 40 MG TAB PO SCH (08:02)
[2016-06-21] MEDS: CHOLECALCIFEROL (VIT D3) 1000 UNIT TAB PO SCH (08:02)
[2016-06-21] MEDS: HYDROCHLOROTHIAZIDE 12.5 MG CAP PO SCH (08:02)
[2016-06-21] MEDS: SODIUM CHLORIDE 0.9% FLUSH 5 ML FLUSH FLUSH SCH ×2 (08:03→21:10)
--- NOTE | 2016-06-21 09:11 | RADRPT ---
EXAM DATE/TIME: 06/21/2016 08:59 [facility] COMPARISON: CHEST PA & LAT, June 18, 2016, 8:41. INDICATIONS : Fever. MEDICAL HISTORY : Unobtainable. SURGICAL HISTORY : Unobtainable. ENCOUNTER: Subsequent ACUITY: 2 days PAIN SCORE: 6/10 LOCATION: Bilateral chest FINDINGS: Diffuse bilateral interstitial infiltrates are present with patchy areas of alveolar consolidation al so present. No significant effusion. Cardiomediastinal contours are grossly satisfactory for techniqu e and projection CONCLUSION: Diffuse infiltrates. Venkat Michael MD on June 21, 2016 at 9:08 Board Certified Radiologist. This report was verified electronically.
--- NOTE | 2016-06-21 10:41 | HHI.FPPN ---
Subjective Remarks No acute events overnight. Yesterday afternoon, patient was noted to have a fever of 100.8 at 4pm. She did not have recurrence of fever. She denies fever , calf pain/swelling, or pain with urination. Chest x-ray revealed "diffuse infiltrates." She has not had difficulty breathing. She has been cleared for discharge by ortho and has placement for rehab. (Wiley Cason MD R3) Objective Vitals Vital Signs Date Time Temp Pulse Resp B/P Pulse Ox O2 Delivery O2 Flow Rate FiO2 06/21/16 08:11 98 Nasal Cannula 2.00 06/21/16 08:10 97.1 93 18 173/84 98 06/21/16 04:00 99.4 90 19 147/68 93 06/21/16 00:05 98.8 82 19 150/67 99 06/20/16 21:02 Nasal Cannula 2.00 06/20/16 20:00 98.6 86 18 117/56 95 06/20/16 18:37 97 21 06/20/16 16:00 100.8 85 16 129/67 97 06/20/16 12:00 99.9 83 16 133/59 97 06/20/16 11:30 96 Nasal Cannula 2.00 I/O 06/20/16 06/20/16 06/20/16 06/21/16 06/21/16 06/21/16 07:00 15:00 23:00 07:00 15:00 23:00 Intake Total 240 ml 1000 ml 240 ml 240 ml Output Total 1300 ml Balance 240 ml -300 ml 240 ml 240 ml Intake Oral 240 ml 1000 ml 240 ml 240 ml Output Urine Total 1300 ml # Voids 2 2 1 2 # Bowel Movements 0 0 0 (Wiley Cason MD R3) Result Diagram: 06/20/1640806/20/169 Objective Remarks CONSTITUTIONAL/GEN: obese elderly female, in NAD. EYES: conjunctiva normal, PERRLA, EOMI. LUNGS: CTAB. No wheezing. Incentive Spirometer at bedside CARDIOVASCULAR: RRR. No murmurs. No LE edema, calf pain, or LE swelling/ redness. GI/ABD: Soft without masses, without organomegaly. Non-tender. NEURO: No focal deficits. SKIN: color normal, no rashes noted. MUSC: multiple bandages on R hip- c/d/i. PSYCH/MENTAL STATUS: Alert and oriented x 3. Irish speaking only. Procedures S/p trochanteric nail for subtrochanteric fracture with percutaneous pinning of femoral neck fracture right hip 06/17/16 (Dr. Tejeda) (Wiley Cason MD R3) A/P Assessment and Plan 76y female with DM2, MDD, breast cancer and HTN who presented after a fall and was admitted 06/16/16 for right hip fracture. S/p trochanteric nail for subtrochanteric fracture with percutaneous pinning of femoral neck fracture right hip 06/17/16 (Dr. Tejeda) Discharge Planning Anticipate discharge to SNF tomorrow pending patient remaining afebrile and no further evidence of infective process. SDW: Dr. Vu (Wiley Cason MD R3) Attending Attestation Patient seen and examined. Case reviewed and discussed with the resident team. Agree with plan of care as discussed with me and documented in the resident note. (Jak Vu MD) Problem List: (1) Intertrochanteric fracture of right femur Status: Acute Plan: Abdomen pelvis x-ray significant for acute comminuted mildly displaced fracture involving the right proximal femur with extension into the antrum trochanteric region. Plan: - Consult Orthopedic Surgery S/p Reduction and intramedullary nail fixation of right subtrochanteric femur fracture, percutaneous pinning of right femoral neck fracture on 06/17/16 Physical therapy daily, recommend d/c to SNF Toe Touch Weight Bearing Surgery has cleared for D/C - Recommend OOB to chair as tolerated - Post-operative fever and tachycardia CXR 06/21/16: "diffuse infiltrates" concerning for possible post-operative pneumonia. Begin Levaquin 750mg daily x7 days Blood culture (06/18)- no growth x3 day - Pain control [place] 5-325mg PO Q4H PRN Pain 3-5 [place] 10-325mg PO Q4H PRN Pain 6-10 Morphine 4mg IV Q3H PRN Breakthrough Pain -Bowel Regimen -Milk of Mg PRN -Added Docusate-Senna 2 tabs HS [place] (2) DIAN (acute kidney injury) Status: Acute Plan: Creatinine 1.5 on admission, trending up to 1.7, now downtrending currently 1.44 yesterday -Discontinue fluids as good po -Daily BMP (3) Type 2 diabetes mellitus with diabetic neuropathy Status: Chronic Plan: Hold home Lantus 80units SQ daily, Nateglinide 120mg PO BID, and Novolog SSI -Sugars in low 300s- requiring 21 units in the past 24 hours Plan -Diabetic Diet -Increase Levemir to 40 HS -Increase to medium dose SS -Continue Accuchecks and Low-dose SSI (4) Anemia Status: Chronic Plan: Microcytic anemia on admission, with Qfajc-he-jeiggyp secondary to blood loss secondary to surgery and likely hematoma of R hip. Plan -Daily CBC unable to transfuse as patient is Orthodox -Hbg back down to 6.8 today but overall stable -Patient is a Orthodox and declines transfusion of two units RBC at this time -Continue supportive care -Lovenox 30mg SQ daily restarted 06/19- if H/H continues to fall may need to hold -Hgb electrophoresis and ferritin level in AM -Ferritin 2006 was normal -Continue Iron supplementation 325mg PO BID (5) HTN (hypertension) Status: Chronic Plan: Continue home dose of Metoprolol 50mg PO daily, Losartan-HCTZ 50-12.5mg PO daily (6) MDD (major depressive disorder), recurrent episode, mild Status: Chronic Plan: Continue home dose of Remeron 15mg PO HS, Celexa 40mg PO Daily (7) Pneumonia Status: Acute Plan: See plan above. (8) Nutrition, metabolism, and development symptoms Status: Acute Plan: Fluids: Per PO Electrolytes: wnl, continue to monitor and replete as needed Nutrition: Diabetic Diet DVT PPx: SCD's only at this time due to low H&H resulting in the anemia will consider restarting Lovenox 30mg SQ daily today due to improvement in hemoglobin \\ GI ppx: not indicated OOB with assistance- nursing order to encourage OOB to chair as tolerated (Wiley Cason MD R3) Problem Qualifiers (1) Intertrochanteric fracture of right femur: Qualified Code: S72.141A - Intertrochanteric fracture of right femur, closed, initial encounter (2) Type 2 diabetes mellitus with diabetic neuropathy: Qualified Code: E11.40 - Type 2 diabetes mellitus with diabetic neuropathy, with long-term current use of insulin (3) HTN (hypertension): Qualified Code: I10 - Essential hypertension Wiley Cason MD R3 Jun 21, 2016 10:41 Jak Vu MD Jun 21, 2016 19:28
[2016-06-21 11:34] LABS: HEMATOCRIT 21.8 % (35.0-46.0); MEAN CORPUSCULAR HEMOGLOBIN 22.2 PG (27.0-34.0); MEAN CORPUSCULAR HGB CONC 31.2 % (32.0-36.0); PLATELET COUNT 195 TH/MM3 (150-450); RED BLOOD COUNT 3.08 MIL/MM3 (4.00-5.30); RED CELL DISTRIBUTION WIDTH 15.4 % (11.6-17.2); WHITE BLOOD COUNT 12.3 TH/MM3 (4.0-11.0)
[2016-06-21 11:35] LABS: REVIEW FLAG FINAL
[2016-06-21 11:49] LABS: BICARBONATE 30.9 MEQ/L (21.0-32.0); POTASSIUM 4.6 MEQ/L (3.5-5.1)
[2016-06-21] MEDS ORDERED: LEVOFLOXACIN 750 MG TAB PO SCH (12:00)
[2016-06-21] MEDS: ENOXAPARIN SODIUM 30 MG/0.3 ML SYRINGE SQ SCH (12:06)
[2016-06-21] MEDS ORDERED: INSULIN DETEMIR 100 UNITS/ML VIAL SQ SCH (21:00)
[2016-06-21] MEDS: DOCUSATE SODIUM 50 MG/SENNA 8.6 MG TAB PO SCH (21:10)
[2016-06-21] MEDS: MIRTAZAPINE 15 MG TAB PO SCH (21:10)
[2016-06-22 00:28] VITALS: BP 126/60; PULSE 90; RESP 18; TEMP 97.6; O2SAT 95
[2016-06-22] MEDS: ACETAMINOPHEN/HYDROcodone 325 MG/10 MG TAB PO PRN ×3 (05:43→14:35)
[2016-06-22] MEDS: INSULIN ASPART SUPPLEMENTAL SCALE SQ SCH ×3 (05:52→16:46)
[2016-06-22 07:20] LABS: AUTOMATED NEUTROPHIL # 6.8 TH/MM3 (1.8-7.7); BASOPHIL # 0.1 TH/MM3 (0-0.2); EOSINOPHIL # 0.4 TH/MM3 (0-0.4); EOSINOPHIL % 3.2 % (0.0-4.0); HEMATOCRIT 22.6 % (35.0-46.0); LYMPH % 27.5 % (9.0-44.0); LYMPHOCYTE # 3.1 TH/MM3 (1.0-4.8); MEAN CELL VOLUME 70.2 FL (80.0-100.0); MEAN CORPUSCULAR HEMOGLOBIN 22.3 PG (27.0-34.0); MEAN CORPUSCULAR HGB CONC 31.7 % (32.0-36.0); MONO % 8.3 % (0.0-8.0); PLATELET COUNT 220 TH/MM3 (150-450); RED BLOOD COUNT 3.23 MIL/MM3 (4.00-5.30); RED CELL DISTRIBUTION WIDTH 15.5 % (11.6-17.2); WHITE BLOOD COUNT 11.3 TH/MM3 (4.0-11.0)
[2016-06-22 07:25] LABS: HEMO FLAGS AUTO DIFF
[2016-06-22 07:41] LABS: POTASSIUM 4.5 MEQ/L (3.5-5.1)
[2016-06-22 08:00] VITALS: BP 147/68; PULSE 84; RESP 18; TEMP 98.8; O2SAT 93
[2016-06-22 08:18] LABS: BANDS 1 % (0-6); CORRECTED NUCLEATED RBC 1 /100 WBC (0-0); EOSINOPHILS 2 % (0-4); NEUTROPHIL # MANUAL DIFF 7.2 TH/MM3 (1.8-7.7); POLYS (SEG NEUTROPHILS) 63 % (16-70); WBC DIFF SAMPLE 100
[2016-06-22 08:19] LABS: PLATELET ESTIMATE SMEAR NORMAL (NORMAL); PLATELET MORPHOLOGY NORMAL (NORMAL); POLYCHROMASIA 3.7 % (0.0-1.9)
[2016-06-22 08:20] LABS: SCAN/DIFF FINAL DIFF MANUAL
[2016-06-22] MEDS: SODIUM CHLORIDE 0.9% FLUSH 5 ML FLUSH IVF SCH (09:00)
[2016-06-22] MEDS: PANTOPRAZOLE SOD 20 MG DELAYED RELEASE TAB PO SCH (09:44)
[2016-06-22] MEDS: MAGNESIUM HYDROXIDE SUSP 30 ML CUP PO PRN (09:44)
[2016-06-22] MEDS: OXYBUTYNIN CHLORIDE 5 MG TAB PO SCH (09:45)
[2016-06-22] MEDS: METOPROLOL TARTRATE 50 MG TAB PO SCH (09:45)
[2016-06-22] MEDS: FERROUS SULFATE 325 MG (65 MG ELEMENTAL IRON) TAB PO SCH (09:45)
[2016-06-22] MEDS: TAMOXIFEN CITRATE 10 MG TAB PO SCH (09:45)
[2016-06-22] MEDS: CHOLECALCIFEROL (VIT D3) 1000 UNIT TAB PO SCH (09:45)
[2016-06-22] MEDS: CHOLECALCIFEROL (VIT D3) 5000 UNIT CAP PO SCH (09:46)
[2016-06-22] MEDS: SODIUM CHLORIDE 0.9% FLUSH 5 ML FLUSH FLUSH SCH (09:46)
[2016-06-22] MEDS: CITALOPRAM HYDROBROMIDE 40 MG TAB PO SCH (09:46)
[2016-06-22] MEDS: HYDROCHLOROTHIAZIDE 12.5 MG CAP PO SCH (09:46)
[2016-06-22] MEDS: GABAPENTIN 100 MG CAP PO SCH ×3 (09:46→16:42)
[2016-06-22] MEDS: LOSARTAN 50 MG TAB PO SCH (09:46)
[2016-06-22] MEDS: FOLIC ACID 1 MG TAB PO SCH (09:46)
--- NOTE | 2016-06-22 10:43 | HHI.FPPN ---
Subjective Remarks Patient seen and examined this morning. Afebrile overnight. Chest x-ray is concerning for possible worsening atelectasis versus post surgical pneumonia. Have started patient on antibiotics. Discussed with patient going to rehabilitation facility today she is in agreement with transfer. Denies any pain at this time. Denies any shortness of breath or chest pain. (Joe Patterson MD R2) Objective Vitals Vital Signs Date Time Temp Pulse Resp B/P Pulse Ox O2 Delivery O2 Flow Rate FiO2 06/22/16 09:56 2.00 06/22/16 09:55 Nasal Cannula 2.00 06/22/16 08:00 98.8 84 18 147/68 93 06/22/16 00:28 97.6 90 18 126/60 95 06/21/16 21:10 Nasal Cannula 2.00 06/21/16 20:15 99.3 87 20 153/65 100 06/21/16 17:09 Room Air 06/21/16 16:00 97.5 72 18 111/69 96 06/21/16 12:00 97.9 75 18 145/67 94 I/O 06/21/16 06/21/16 06/21/16 06/22/16 06/22/16 06/22/16 07:00 15:00 23:00 07:00 15:00 23:00 Intake Total 240 ml 960 ml 240 ml Balance 240 ml 960 ml 240 ml Intake Oral 240 ml 960 ml 240 ml # Voids 2 5 2 # Bowel Movements 0 0 0 (Joe Patterson MD R2) Result Diagram: 06/22/16 0705 06/22/16 0705 Imaging Last Impressions Chest X-Ray 06/21/16 0000 Signed Impressions: Service Date/Time: Tuesday, June 21, 2016 08:59 - CONCLUSION: Diffuse infiltrates. Venkat Michael MD Femur X-Ray 06/17/16 0000 Signed Impressions: Service Date/Time: Friday, June 17, 2016 09:13 - CONCLUSION: Limited images as detailed above. Prudencio Medina Jr., MD Hip and Pelvis X-Ray 06/16/16 1423 Signed Impressions: Service Date/Time: May 16:14 - CONCLUSION: Acute comminuted mildly displaced fracture involving the right proximal femur with extension into the intratrochanteric region. No additional fractures are visualized. Connie Horn MD Objective Remarks CONSTITUTIONAL/GEN: obese elderly female, in NAD. EYES: conjunctiva normal, PERRLA, EOMI. LUNGS: CTAB. No wheezing. Incentive Spirometer at bedside CARDIOVASCULAR: RRR. No murmurs. No LE edema, calf pain, or LE swelling/ redness. GI/ABD: Soft without masses, without organomegaly. Non-tender. NEURO: No focal deficits. SKIN: color normal, no rashes noted. MUSC: multiple bandages on R hip- c/d/i. PSYCH/MENTAL STATUS: Alert and oriented x 3. [place] Islander speaking only. Procedures S/p trochanteric nail for subtrochanteric fracture with percutaneous pinning of femoral neck fracture right hip 06/17/16 (Dr. Tejeda) (Joe Patterson MD R2) A/P Assessment and Plan 76y female with DM2, MDD, breast cancer and HTN who presented after a fall and was admitted 06/16/16 for right hip fracture. S/p trochanteric nail for subtrochanteric fracture with percutaneous pinning of femoral neck fracture right hip 06/17/16 (Dr. Tejeda) Discharge Planning Anticipate discharge to SNF today pending patient remaining afebrile and no further evidence of infective process. SDW: Dr. Vu (Joe Patterson MD R2) Attending Attestation Patient seen and examined. Case reviewed and discussed with the resident team. Agree with plan of care as discussed with me and documented in the resident note. (Jak Vu MD) Problem List: (1) Intertrochanteric fracture of right femur Status: Acute Plan: Abdomen pelvis x-ray significant for acute comminuted mildly displaced fracture involving the right proximal femur with extension into the antrum trochanteric region. Plan: - Consult Orthopedic Surgery S/p Reduction and intramedullary nail fixation of right subtrochanteric femur fracture, percutaneous pinning of right femoral neck fracture on 06/17/16 Physical therapy daily, recommend d/c to SNF Toe Touch Weight Bearing Surgery has cleared for D/C - Recommend OOB to chair as tolerated - Post-operative fever and tachycardia CXR 06/21/16: "diffuse infiltrates" concerning for possible post-operative pneumonia. Continue Levaquin 750mg daily x7 days (1/31/17-06/27/16) Blood culture (06/18)- no growth x4 day - Pain control Mayo 5-325mg PO Q4H PRN Pain 3-5 Mayo 10-325mg PO Q4H PRN Pain 6-10 Morphine 4mg IV Q3H PRN Breakthrough Pain -Bowel Regimen -Milk of Mg PRN -Added Docusate-Senna 2 tabs HS SKYLAR (2) DIAN (acute kidney injury) Status: Acute Plan: Creatinine 1.5 on admission, trending up to 1.7, now downtrending currently 1.46 believe this to be her new baseline -Discontinue fluids as good po -Daily BMP (3) Type 2 diabetes mellitus with diabetic neuropathy Status: Chronic Plan: Hold home Lantus 80units SQ daily, Nateglinide 120mg PO BID, and Novolog SSI -Sugars in low 300s- requiring 21 units in the past 24 hours Plan -Diabetic Diet -Increase Levemir to 40 HS -Increase to medium dose SS -Continue Accuchecks and Low-dose SSI (4) Anemia Status: Chronic Plan: Microcytic anemia on admission, with [id number] secondary to blood loss secondary to surgery and likely hematoma of R hip. Plan -Daily CBC unable to transfuse as patient is Judaism -Hbg back down to 6.8 today but overall stable -Patient is a Judaism and declines transfusion of two units RBC at this time -Continue supportive care -Lovenox 30mg SQ daily restarted 06/19- if H/H continues to fall may need to hold -Hgb electrophoresis and ferritin level in AM -Ferritin 2006 was normal -Continue Iron supplementation 325mg PO BID (5) HTN (hypertension) Status: Chronic Plan: Continue home dose of Metoprolol 50mg PO daily, Losartan-HCTZ 50-12.5mg PO daily (6) MDD (major depressive disorder), recurrent episode, mild Status: Chronic Plan: Continue home dose of Remeron 15mg PO HS, Celexa 40mg PO Daily (7) Pneumonia Status: Acute Plan: See plan above. (8) Nutrition, metabolism, and development symptoms Status: Acute Plan: Fluids: Per PO Electrolytes: wnl, continue to monitor and replete as needed Nutrition: Diabetic Diet DVT PPx: SCD's only at this time due to low H&H resulting in the anemia will consider restarting Lovenox 30mg SQ daily today due to improvement in hemoglobin \\ GI ppx: not indicated OOB with assistance- nursing order to encourage OOB to chair as tolerated (Joe Patterson MD R2) Problem Qualifiers (1) Intertrochanteric fracture of right femur: Qualified Code: S72.141A - Intertrochanteric fracture of right femur, closed, initial encounter (2) Type 2 diabetes mellitus with diabetic neuropathy: Qualified Code: E11.40 - Type 2 diabetes mellitus with diabetic neuropathy, with long-term current use of insulin (3) HTN (hypertension): Qualified Code: I10 - Essential hypertension Joe Patterson MD R2 Jun 22, 2016 10:43 Jak Vu MD Jun 22, 2016 16:20
[2016-06-22] MEDS ORDERED: BISACODYL 10 MG SUPP RECTAL PRN (10:45)
--- NOTE | 2016-06-22 10:51 | HHI.DS ---
Discharge Summary Admission Date Jun 16, 2016 at 17:06 Discharge Date: Jun 22, 2016 Admitting Diagnosis right hip fracture (1) Intertrochanteric fracture of right femur Diagnosis: Principal Plan: Abdomen pelvis x-ray significant for acute comminuted mildly displaced fracture involving the right proximal femur with extension into the antrum trochanteric region. Plan: - Consult Orthopedic Surgery S/p Reduction and intramedullary nail fixation of right subtrochanteric femur fracture, percutaneous pinning of right femoral neck fracture on 06/17/16 Physical therapy daily, recommend d/c to SNF Toe Touch Weight Bearing Surgery has cleared for D/C - Recommend OOB to chair as tolerated - Post-operative fever and tachycardia CXR 06/21/16: "diffuse infiltrates" concerning for possible post-operative pneumonia. Continue Levaquin 750mg daily x7 days (06/21/16-06/27/16) Blood culture (06/18)- no growth x4 day - Pain control Esopus 5-325mg PO Q4H PRN Pain 3-5 Esopus 10-325mg PO Q4H PRN Pain 6-10 Morphine 4mg IV Q3H PRN Breakthrough Pain -Bowel Regimen -Milk of Mg PRN -Added Docusate-Senna 2 tabs HS SKYLAR (2) DIAN (acute kidney injury) Diagnosis: Secondary Plan: Creatinine 1.5 on admission, trending up to 1.7, now downtrending currently 1.46 believe this to be her new baseline -Discontinue fluids as good po -Daily BMP (3) Type 2 diabetes mellitus with diabetic neuropathy Diagnosis: Secondary Plan: Hold home Lantus 80units SQ daily, Nateglinide 120mg PO BID, and Novolog SSI -Sugars in low 300s- requiring 21 units in the past 24 hours Plan -Diabetic Diet -Increase Levemir to 40 HS -Increase to medium dose SS -Continue Accuchecks and Low-dose SSI (4) Anemia Diagnosis: Principal Plan: Microcytic anemia on admission, with Pvyuh-ox-gohhobo secondary to blood loss secondary to surgery and likely hematoma of R hip. Plan -Daily CBC unable to transfuse as patient is [employer] -Hbg back down to 6.8 today but overall stable -Patient is a [employer] and declines transfusion of two units RBC at this time -Continue supportive care -Lovenox 30mg SQ daily restarted 06/19- if H/H continues to fall may need to hold -Hgb electrophoresis and ferritin level in AM -Ferritin 2006 was normal -Continue Iron supplementation 325mg PO BID (5) HTN (hypertension) Diagnosis: Secondary Plan: Continue home dose of Metoprolol 50mg PO daily, Losartan-HCTZ 50-12.5mg PO daily (6) MDD (major depressive disorder), recurrent episode, mild Diagnosis: Secondary Plan: Continue home dose of Remeron 15mg PO HS, Celexa 40mg PO Daily (7) Pneumonia Diagnosis: Principal Plan: See plan above. (8) Nutrition, metabolism, and development symptoms Diagnosis: Secondary Plan: Fluids: Per PO Electrolytes: wnl, continue to monitor and replete as needed Nutrition: Diabetic Diet DVT PPx: SCD's only at this time due to low H&H resulting in the anemia will consider restarting Lovenox 30mg SQ daily today due to improvement in hemoglobin \\ GI ppx: not indicated OOB with assistance- nursing order to encourage OOB to chair as tolerated [facility] Procedures S/p trochanteric nail for subtrochanteric fracture with percutaneous pinning of femoral neck fracture right hip 06/17/16 (Dr. Tejeda) Brief History Patient is a 76-year-old female with a past medical history significant for DM type II, MDD, breast cancer and HTN who presents today after a fall. Patient was at her friend's house when a small dog approached her. When trying to back away from the dog, she felt backwards and hurt her right hip. History is limited due to language barrier as patient is Green[place]ic-speaking. She is in a significant amount of pain, rating it 11/10. She denies any paraesthesias. Per chart review, she has had fractures in the past and is currently being treated for osteoporosis. She denies trauma to any other part of her body. She did not hit her head or have loss of consciousness. She was otherwise in her baseline state of health. She denies any chest pain, shortness of breath, fever , chills, nausea or vomiting. CBC/BMP: 06/22/16 0705 06/22/16 0705 Significant Findings Laboratory Tests Test 06/20/16 06/20/16 06/21/16 06/22/16 04:09 20:00 11:05 07:05 White Blood Count 15.3 TH/MM3 12.3 TH/MM3 11.3 TH/MM3 (4.0-11.0) (4.0-11.0) (4.0-11.0) Red Blood Count 3.38 MIL/MM3 3.08 MIL/MM3 3.23 MIL/MM3 (4.00-5.30) (4.00-5.30) (4.00-5.30) Hemoglobin 7.5 GM/DL 6.8 GM/DL 7.2 GM/DL (11.6-15.3) (11.6-15.3) (11.6-15.3) Hematocrit 23.7 % 21.8 % 22.6 % (35.0-46.0) (35.0-46.0) (35.0-46.0) Mean Corpuscular Volume 70.3 FL 71.0 FL 70.2 FL (80.0-100.0) (80.0-100.0) (80.0-100.0) Mean Corpuscular Hemoglobin 22.2 PG 22.2 PG 22.3 PG (27.0-34.0) (27.0-34.0) (27.0-34.0) Mean Corpuscular Hemoglobin 31.5 % 31.2 % 31.7 % Concent (32.0-36.0) (32.0-36.0) (32.0-36.0) Sodium Level 135 MEQ/L 135 MEQ/L (136-145) (136-145) Blood Urea Nitrogen 25 MG/DL (7-18) 30 MG/DL (7-18) 34 MG/DL (7-18) Creatinine 1.44 MG/DL 1.37 MG/DL 1.46 MG/DL (0.50-1.00) (0.50-1.00) (0.50-1.00) Estimat Glomerular Filtration 43 ML/MIN (>89) 46 ML/MIN (>89) 42 ML/MIN (>89) Rate Random Glucose 210 MG/DL 239 MG/DL 201 MG/DL (74-106) (74-106) (74-106) Ferritin 946 NG/ML (8-252) Albumin 2.5 GM/DL (3.4-5.0) Urine Leukocyte Esterase SMALL (NEG) Urine Mucus FEW /lpf (OCC) Anion Gap 4 MEQ/L (5-15) Monocytes (%) (Auto) 8.3 % (0.0-8.0) Nucleated Red Blood Cells 1 /100 WBC (0-0) Polychromasia 3.7 % (0.0-1.9) Imaging Last Impressions Chest X-Ray 06/21/16 0000 Signed Impressions: Service Date/Time: Tuesday, June 21, 2016 08:59 - CONCLUSION: Diffuse infiltrates. Venkat Michael MD Femur X-Ray 06/17/16 0000 Signed Impressions: Service Date/Time: Friday, June 17, 2016 09:13 - CONCLUSION: Limited images as detailed above. Prudencio Medina Jr., MD Hip and Pelvis X-Ray 06/16/16 1423 Signed Impressions: Service Date/Time: May 16:14 - CONCLUSION: Acute comminuted mildly displaced fracture involving the right proximal femur with extension into the intratrochanteric region. No additional fractures are visualized. Connie Horn MD PE at Discharge CONSTITUTIONAL/GEN: obese elderly female, in NAD. EYES: conjunctiva normal, PERRLA, EOMI. LUNGS: CTAB. No wheezing. Incentive Spirometer at bedside CARDIOVASCULAR: RRR. No murmurs. No LE edema, calf pain, or LE swelling/ redness. GI/ABD: Soft without masses, without organomegaly. Non-tender. NEURO: No focal deficits. SKIN: color normal, no rashes noted. MUSC: multiple bandages on R hip- c/d/i. PSYCH/MENTAL STATUS: Alert and oriented x 3. Greenlandic speaking only. Hospital Course Patient was admitted for right hip fracture. She required surgery by orthopedic surgeon. She is a [employer] and was found to have post procedure anemia. Unable to transfuse blood cell required longer hospital stay for monitoring of her anemia. Improved with iron. During her hospitalization she had occasional fevers, and chest x-ray concerning for possible pneumonia, concern patient may develop post procedural pneumonia. Have started her on antibiotics and she is no longer having fevers. Patient's being discharged to short-term rehabilitation following her hip fracture with oral antibiotics Pt Condition on Discharge: Stable Discharge Disposition: Discharge to SNF Discharge Instructions DIET: Follow Instructions for: As Tolerated, No Restrictions Activities you can perform: Toe Touch Weight Bearing Follow up Referrals: Orthopedics - 07/01/16 @ [facility] with Mil Tejeda MD New Medications: Hydrocodone-Acetaminophen (Esopus) 7.5-325 mg Tab 1 TAB PO Q6H PRN PAIN #60 Ref 0 TAB Rivaroxaban (Xarelto) 10 Mg Tab 10 MG PO DAILY Blood Clot Prevention #14 Ref 0 TAB Walker/Adult/Folding (Walker/Adult/Folding) 1 Mis Mis 1 EA .ROUTE DIRECTED #1 Ref 0 EA Continued Medications: Alendronate (Fosamax) 70 Mg Tab 70 MG PO WEEKLY Osteoporosis Treatment #4 Ref 0 TAB Cholecalciferol (Vitamin D3) 1,000 Unit Tab 1000 UNITS PO DAILY Nutritional Supplement #1 Ref 0 BOTTLE Citalopram (Celexa) 40 Mg Tab 40 MG PO DAILY Control Depression #30 Ref 0 TAB Ferrous Sulfate (Ferrous Sulfate) 325 Mg Tab 325 MG PO BID Nutritional Supplement #30 Ref 0 TAB Folic Acid (Folate) 1 Mg Tab 1 MG PO DAILY Nutritional Supplement Ref 0 TAB Gabapentin (Gabapentin) 100 Mg Cap 200 MG PO TID #90 Ref 0 CAP Insulin Aspart Inj (Novolog Inj) 1,000 Unit/10 Ml Vial 0 SQ DIRECTED Sliding Scale as directed. Blood Sugar Management #10 Ref 0 ML Insulin Glargine Inj (Lantus Inj) 100 Unit/Ml Inj 80 UNITS SQ DAILY Losartan-Hydrochlorothiazide (Losartan-Hydrochlorothiazide) 50-12.5 Mg Tab 1 TAB PO DAILY Blood Pressure Management #30 Ref 0 TAB Metoprolol Tartrate (Metoprolol Tartrate) 50 Mg Tab 50 MG PO DAILY #30 Ref 0 TAB Mirtazapine (Remeron) 15 Mg Tab 15 MG PO HS Depression Control #30 Ref 0 TAB Nateglinide (Starlix) 120 Mg Tab 120 MG PO BID Blood Sugar Management #90 Ref 0 TAB Omeprazole (Omeprazole) 20 Mg Tab 20 MG PO DAILY #30 Ref 0 TAB Oxybutynin (Ditropan) 5 Mg Tab 5 MG PO Q12HR Urinary Symptom Managemen #60 Ref 0 TAB Ranitidine (Zantac) 150 Mg Tab 150 MG PO BID Reduce Stomach Acid #60 Ref 0 TAB Tamoxifen (Tamoxifen) 20 Mg Tab 20 MG PO DAILY Chemotherapy Management #60 Ref 0 TAB Joe Patterson MD R2 Jun 22, 2016 10:51
[2016-06-22] MEDS: ENOXAPARIN SODIUM 30 MG/0.3 ML SYRINGE SQ SCH (11:11)
[2016-06-22 11:51] VITALS: O2SAT 96
[2016-06-22 12:05] VITALS: BP 123/69; PULSE 72; RESP 18; TEMP 97.7; O2SAT 99
[2016-06-22 16:00] VITALS: BP 140/66; PULSE 74; RESP 18; TEMP 96.5; O2SAT 100
[2016-06-23] MEDS ORDERED: LEVOFLOXACIN 750 MG TAB PO SCH (12:00)
== END 2016-06-22 17:28 | DRG 480 ==
LOC: NEPC 14:05 → NEDA 17:06 → N06B 20:48
PROVIDERS: ADMIT Family Medicine; ATTEND Family Medicine
PROC: 0T9B70Z Drainage of Bladder with Drainage Device, Via Natural or Artificial Opening (ICD-10-PCS; 2016-06-16)
PROC: 0QS636Z Reposition Right Upper Femur with Intramedullary Internal Fixation Device, Percutaneous Approach (ICD-10-PCS; principal; 2016-06-17 08:10)
DX: S72.21XA Displaced subtrochanteric fracture of right femur, initial encounter for closed fracture (principal); J18.9 Pneumonia, unspecified organism; N17.9 Acute kidney failure, unspecified; D62 Acute posthemorrhagic anemia; J95.89 Other postprocedural complications and disorders of respiratory system, not elsewhere classified; E11.40 Type 2 diabetes mellitus with diabetic neuropathy, unspecified; R50.82 Postprocedural fever; M81.0 Age-related osteoporosis without current pathological fracture; I10 Essential (primary) hypertension; H91.90 Unspecified hearing loss, unspecified ear; F32.9 Major depressive disorder, single episode, unspecified; K21.9 Gastro-esophageal reflux disease without esophagitis; M19.90 Unspecified osteoarthritis, unspecified site; Z85.3 Personal history of malignant neoplasm of breast; Z90.12 Acquired absence of left breast and nipple; Z86.010 Personal history of colon polyps; W01.0XXA Fall on same level from slipping, tripping and stumbling without subsequent striking against object, initial encounter; Y93.01 Activity, walking, marching and hiking; Y92.099 Unspecified place in other non-institutional residence as the place of occurrence of the external cause; R00.0 Tachycardia, unspecified; S70.01XA Contusion of right hip, initial encounter; D50.9 Iron deficiency anemia, unspecified; Z79.4 Long term (current) use of insulin; Z53.1 Procedure and treatment not carried out because of patient's decision for reasons of belief and group pressure
CPT/HCPCS: 51702; 71010; 71020; 73502; 73552; 76000; 80048; 80053; 81001; 82306; 82728; 82948; 83020; 85007; 85025; 85027; 85610; 85730; 87040; 93005; 96372; 96374; 96375; C1713; C1769; J0690; J1170; J1580; J1650; J1815; J2270; J2370; J2405; J3010; J3370; J7030; J7613

== ENCOUNTER 2018-05-02 16:01 | Observation (INO) ==
[2018-05-02] MEDS ORDERED: Aspirin 325 MG Tablet PO ONE (16:57)
--- NOTE | 2018-05-02 17:17 | ED ---
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 She denies any trauma. Quality of pain is sharp. Severity is severe per patient. Pain is worse with movement. She denies other modifying factors. She is not recall what her last cardiac workup was or when it was. She denies taking an aspirin yet today. 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 She denies specific migration. Related Data Allergies Allergy/AdvReac Type Severity Reaction Status Date / Time No Known Allergies Allergy UNKNOWN Uncoded 06/16/16 14:31 NAME/TYPE OF ALLERGIES TO MEDS Review of Systems ROS: all other systems reviewed are negative [facility] Medical History Medical History Arthritis (Acute) Diabetes mellitus (Acute) HTN (hypertension) (Acute) History of breast cancer (Acute) Social History Social History Substance History: No History of Abuse Smoking Status: Never smoker How Often Do You Have a Drink Containing Alcohol: Never Recent Out of Country Travel within the Last 8 Weeks: No Immunization History Tetanus Immunization: Unsure Exam Narrative Exam Narrative: GENERAL: 78 y/o female in no apparent distress SKIN: Focused skin assessment warm/dry. HEAD: Atraumatic. Normocephalic. EYES: Pupils equal and round. No scleral icterus. No injection or drainage. ENT: No nasal bleeding or discharge. Mucous membranes pink and moist. NECK: Trachea midline. No JVD. CARDIOVASCULAR: Regular rate and rhythm. RESPIRATORY: No accessory muscle use. Clear to auscultation. Breath sounds equal bilaterally. GASTROINTESTINAL: Abdomen soft, non-tender, nondistended. MUSCULOSKELETAL: No obvious deformities. No clubbing. No cyanosis. No edema. ttp to entire left arm NEUROLOGICAL: Awake and alert. Motor grossly within normal limits. Normal speech. PSYCHIATRIC: Appropriate mood and affect; insight and judgment normal. Course Reevaluation(s) Reevaluation #1: patient updated and agrees to [facility] admit given risk factors Initial Documented Vital Signs Temperature 98.8 F 05/02/18 16:23 Pulse Rate 75 05/02/18 16:23 Respiratory Rate 19 05/02/18 16:23 Blood Pressure 195/91 H 05/02/18 16:23 Pulse Oximetry 96 05/02/18 16:23 Last Documented Vital Signs Temperature 98.8 F 05/02/18 16:23 Pulse Rate 70 05/02/18 16:57 Respiratory Rate 18 05/02/18 16:57 Blood Pressure 224/96 H 05/02/18 16:57 Pulse Oximetry 97 05/02/18 16:57 Medical Decision Making MDM Narrative Medical decision making narrative: We will check blood work, x-ray and dose with aspirin nitro and reevaluate Medical Screen Exam Complete: Yes Emergency Medical Condition: Yes Differential Diagnosis Differential Diagnosis: PE, atypical cardiac, gastritis, musculoskeletal Lab Data Lab results reviewed: Yes I reviewed the patient's lab results. Result diagrams: 05/02/18 17:08 05/02/18 17:08 Lab Results 05/02/18 05/02/18 05/02/18 Range/Units 17:08 17:08 17:08 WBC 11.2 H (4.0-11.0) th/mm3 RBC 4.21 (4.00-5.30) mil/mm3 Hgb 9.9 L (11.6-15.3) gm/dL Hct 30.0 L (35.0-46.0) % MCV 71.3 L (80.0-100.0) fL MCH 23.5 L (27.0-34.0) pg MCHC 33.0 (32.0-36.0) % RDW 15.7 (11.6-17.2) % Plt Count 136 L (150-450) th/mm3 MPV 10.0 (7.0-11.0) fL Neut % (Auto) 53.3 (16.0-70.0) % Lymph % (Auto) 36.8 (9.0-44.0) % [place] % (Auto) 7.2 (0.0-8.0) % Eos % (Auto) 2.0 (0.0-4.0) % Baso % (Auto) 0.7 (0.0-2.0) % Neut # (Auto) 6.0 (1.8-7.7) th/mm3 Lymph # (Auto) 4.1 (1.0-4.8) th/mm3 [place] # (Auto) 0.8 (0.0-0.9) th/mm3 Eos # (Auto) 0.2 (0.0-0.4) th/mm3 Baso # (Auto) 0.1 (0.0-0.2) th/mm3 WBC Differential . Differential Comment Auto diff final PT 11.4 (9.8-11.6) sec INR 1.1 Ratio APTT 30.8 (23.4-31.7) sec D-Dimer Quant (PE/DVT) 0.46 (0.00-0.50) mg/L FEU Sodium 136 (136-145) meq/L Potassium 4.8 (3.5-5.1) meq/L Chloride 104 (98-107) meq/L Carbon Dioxide 22.2 (21.0-32.0) meq/L Anion Gap 10 (5-15) meq/L BUN 22 H (7-18) mg/dL Creatinine 1.66 H (0.50-1.00) mg/dL Estimated GFR 36 L (>89) mL/min Random Glucose 286 H (74-106) mg/dL Calcium 8.1 L (8.5-10.1) mg/dL Magnesium 1.6 (1.5-2.5) mg/dL Total Bilirubin 0.4 (0.2-1.0) mg/dL AST 27 (15-37) U/L ALT 36 (10-53) U/L Alkaline Phosphatase 129 H (45-117) U/L Total Creatine Kinase 88 (26-192) U/L Troponin I Less than 0.02 L (0.02-0.05) ng/mL Total Protein 7.4 (6.4-8.2) g/dL Albumin 3.4 (3.4-5.0) g/dL Imaging Data Attestation: I personally reviewed and interpreted this imaging study as follows : Radiologist's impression: Chest X-Ray 05/02/18 16:57 CONCLUSION: No acute intrathoracic disease. Discharge Plan Discharge Order Discharge Orders: ED Use Only Admit Order (Routine); Ordered 05/02/18 Ordered By: Jacklyn Pandey Physicians Team ED Provider: Jacklyn Pandey Primary Care Provider: UNKNOWN, Discharge Interventions Interventions: Vital Signs Last Done: 05/02/18 16:27 Status ED Status: Admitted Observation Patient
[2018-05-02 17:26] LABS: Baso # (Auto) 0.1 th/mm3 (0.0-0.2); Baso % (Auto) 0.7 % (0.0-2.0); Eos # (Auto) 0.2 th/mm3 (0.0-0.4); Hemoglobin 9.9 gm/dL (11.6-15.3); Lymph # (Auto) 4.1 th/mm3 (1.0-4.8); Lymph % (Auto) 36.8 % (9.0-44.0); Mean Corpuscular Hemoglobin 23.5 pg (27.0-34.0); Mean Corpuscular Volume 71.3 fL (80.0-100.0); Mono # (Auto) 0.8 th/mm3 (0.0-0.9); Mono % (Auto) 7.2 % (0.0-8.0); Neut % (Auto) 53.3 % (16.0-70.0); Platelet Count 136 th/mm3 (150-450); Red Blood Count 4.21 mil/mm3 (4.00-5.30); Red Cell Distribution Width 15.7 % (11.6-17.2); White Blood Count 11.2 th/mm3 (4.0-11.0)
--- NOTE | 2018-05-02 17:33 | XR ---
EXAM DATE: 05/02/2018 5:29 PM EST AGE/SEX: 78 years / Female INDICATIONS: Left sided chest pain for 5 days CLINICAL DATA: This is the patient's initial encounter. Patient reports that signs and symptoms have been present for 4 - 6 days and indicates a pain score of 10/10. MEDICAL/SURGICAL HISTORY: None. None. COMPARISON: No prior exams available for comparison. FINDINGS: A single AP view of the chest demonstrates the lungs to be symmetrically aerated without evidence of mass, infiltrate or effusion. The heart size is upper limits of normal.. Osseous structures are int act. Mild degenerative changes of both shoulders. CONCLUSION: No acute intrathoracic disease. Electronically signed by: Ishan Patel MD 05/02/2018 5:31 PM EST
[2018-05-02 17:44] LABS: Activated Partial Thrombo Time 30.8 sec (23.4-31.7); INR 1.1 Ratio; Prothrombin Time 11.4 sec (9.8-11.6)
[2018-05-02 17:45] LABS: D-Dimer 0.46 mg/L FEU (0.00-0.50)
[2018-05-02 17:50] LABS: Alanine Aminotransferase 36 U/L (10-53); Albumin 3.4 g/dL (3.4-5.0); Anion Gap 10 meq/L (5-15); Aspartate Aminotransferase 27 U/L (15-37); Blood Urea Nitrogen 22 mg/dL (7-18); Calcium 8.1 mg/dL (8.5-10.1); Carbon Dioxide 22.2 meq/L (21.0-32.0); Chloride 104 meq/L (98-107); Glomerular Filtration Rate 36 mL/min (>89); Glucose,Random 286 mg/dL (74-106); Magnesium 1.6 mg/dL (1.5-2.5); Potassium 4.8 meq/L (3.5-5.1); Sodium 136 meq/L (136-145)
[2018-05-02 17:55] LABS: Alkaline Phosphatase 129 U/L (45-117); Total Protein 7.4 g/dL (6.4-8.2)
[2018-05-02 17:58] LABS: Creatine Kinase 88 U/L (26-192)
[2018-05-02] MEDS ORDERED: Morphine Sulfate Inj 2 MG/ML Vial IV.PUSH ONE (18:05)
[2018-05-02] MEDS ORDERED: Acetaminophen 500 MG Tablet PO PRN (20:56)
[2018-05-02] MEDS: Morphine Inj 4 MG/ML Vial IV.PUSH PRN (21:36)
[2018-05-02 22:42] LABS: Creatine Kinase 77 U/L (26-192)
[2018-05-03] MEDS ORDERED: Sodium Chloride 0.9% 2 ML Flush PRN IV.FLUSH (01:24)
[2018-05-03] MEDS ORDERED: amLODIPine 5 MG Tablet PO ONE ×2 (01:30→16:46)
[2018-05-03] MEDS: Morphine Inj 4 MG/ML Vial IV.PUSH PRN ×3 (02:12→15:42)
--- NOTE | 2018-05-03 07:04 | ECG ---
Date Performed: 05/02/2018 Time Performed: 17:10:22 PTAGE: 78 years EKG: Sinus rhythm VOLTAGE CRITERIA FOR LVH ABNORMAL ECG No significant change from prior electrocardiogram. PREVIOUS TRACING : 06/16/2016 15.09 DOCTOR: Aryan Cuello Interpretating Date/Time 05/03/2018 07:03:10
[2018-05-03] MEDS: Insulin NovoLIN Regular Correctional Sugar Inj SQ SCH ×4 (08:02→21:50)
[2018-05-03] MEDS: Sodium Chloride 0.9% 2 ML Flush BID IV.FLUSH SCH ×2 (09:00→21:34)
[2018-05-03] MEDS ORDERED: Metoprolol Tartrate 50 MG Tablet PO SCH (09:00)
--- NOTE | 2018-05-03 09:22 | P.HPCA ---
History of Present Illness Primary Care Physician: UNKNOWN Chief Complaint: Left arm pain History of Present Illness: This is a 78-year-old female with history of diabetes, hypertension, breast cancer with mastectomy in 2012 that presents to ED with complaint of constant left arm pain for at least a week. States that the pain became unbearable yesterday. Denies any trauma. States pain is worsened with movement. Denies any chest discomfort. Denies shortness of breath, nausea, diaphoresis. Denies neck or back pain or other issues of her neck and back in the past. Denies history of CAD. 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 Denies known CAD and hyperlipidemia. Lifetime non-smoker. She does not know her family medical history, states that she is an orphan. - Diagnosis (1) Arm pain, left (2) Diabetes (3) Hypertension (4) History of CVA (cerebrovascular accident) Review of Systems General: Patient denies fevers, chills, and recent travel. HEENT: Patient denies headache, sore throat, difficulty swallowing. Cardiovascular: Denies any type of chest discomfort as mentioned above. Denies sensation of heart beating rapidly or irregularly. No syncope. Denies diaphoresis Respiratory: Denies shortness of breath or inspirational chest discomfort. Denies coughing wheezing or hemoptysis. GI: Patient denies nausea, vomiting, diarrhea, abdominal pain, bloody stools. Musculoskeletal: Planes of left arm pain in its entirety. Denies trauma. Worse with movement. Worse when palpating the area. Denies calf pain or edema. Neurovascular: Patient denies numbness, tingling, weakness in extremities. Denies headache. Endocrine: Denies polyuria and polydipsia. Hematologic: Denies easy bruising. Skin: Denies rash or itching. PMFSH - History History Provided By: Patient, Family Member - Medical History Medical History: Medical History (Last Reviewed 05/02/18 @ 17:16 by Jacklyn Pandey MD) Arthritis Diabetes mellitus HTN (hypertension) History of breast cancer - Tobacco History Second Hand Smoke Exposure: No Smoking Status: Never smoker - Alcohol History How Often Do You Have a Drink Containing Alcohol: Never - Substance Use History Substance History: No History of Abuse - Travel History Recent Travel in the [facility] Within the Last 8 Weeks: No Recent Travel Out of the Country Within the Last 8 Weeks: No - Immunization History Tetanus Immunization: Unsure Medications and Allergies Active Medications: Active Medications Acetaminophen (Tylenol) 500 mg PO Q4H PRN PRN Reason: HEADACHE Aspirin (Aspirin) 325 mg PO DAILY [facility] Insulin Human Regular (Novolin R Correctional Sugar Inj) 0 units SQ ACHS [facility]; Protocol Last Admin: 05/03/18 08:02 Dose: Not Given Losartan Potassium (Cozaar) 50 mg PO DAILY [facility] Metoprolol Tartrate (Lopressor) 50 mg PO BID [facility] Morphine Sulfate (Morphine Inj) 2 mg IV.PUSH Q4H PRN PRN Reason: PAIN SCALE 8 TO 10 Last Admin: 05/03/18 02:12 Dose: 2 mg Nitroglycerin (Nitrostat Sl) 0.4 mg SL Q5M PRN PRN Reason: CHEST PAIN Ondansetron HCl (Zofran Inj) 4 mg IV.PUSH Q6H PRN PRN Reason: NAUSEA Sodium Chloride (Ns Flush) 2 ml IV.FLUSH BID [facility] Sodium Chloride (Ns Flush) 2 ml IV.FLUSH PRN PRN PRN Reason: FLUSH AFTER USING IV ACCESS Allergies Allergy/AdvReac Type Severity Reaction Status Date / Time No Known Allergies Allergy UNKNOWN Uncoded 06/16/16 14:31 NAME/TYPE OF ALLERGIES TO MEDS Home Medications Medication Instructions Recorded Confirmed Type losartan 50 mg PO DAILY 05/03/18 History metoprolol tartrate 50 mg PO BID 05/03/18 History Exam Vital signs: Vital Signs 05/02/18 16:23 05/02/18 16:27 05/02/18 16:57 Temperature 98.8 F Pulse Rate 75 69 70 Respiratory Rate 19 18 18 Blood Pressure 195/91 H 224/96 H 224/96 H Pulse Oximetry 96 97 97 05/02/18 19:38 05/02/18 22:00 05/02/18 22:06 Temperature Pulse Rate 84 81 Respiratory Rate 18 16 Blood Pressure 149/79 H Pulse Oximetry 100 05/02/18 23:29 05/03/18 08:00 Temperature 98.5 F 98.5 F Pulse Rate 81 77 Respiratory Rate 22 18 Blood Pressure 214/96 H 176/81 H Pulse Oximetry 97 98 Intake & Output 05/02/18 05/03/18 05/03/18 18:59 06:59 18:59 Weight 81.647 kg 81.647 kg Other: Weight On Admission 81.647 kg Narrative: GENERAL: This is a well-nourished, well-developed patient, in no apparent distress. Patient speaks in clear complete sentences. Patient is pleasant. HEENT: Head is atraumatic and normocephalic. Bilateral ocular lens implants. Upper and lower weights. Neck is supple without lymphadenopathy and trachea is midline. No JVD or carotid bruits. CARDIOVASCULAR: 2/6 systolic murmur left sternal border. Regular rate and rhythm without gallops or rubs. RESPIRATORY: Mild crackles bilateral bases. Breath sounds equal bilaterally. No wheezes, rales, or rhonchi. Chest wall is nontender. No use of accessory muscles. GASTROINTESTINAL: Abdomen is nontender, nondistended. Abdomen soft. No obvious pulsatile mass or bruit. No CVA tenderness. Strong femoral pulses bilaterally. Normal bowel sounds in all quadrants. MUSCULOSKELETAL: Patient is crying in pain of her left arm. Even touching softly worsens the discomfort. Did not attempt range of motion secondary to the amount of pain the patient was in. No calf tenderness or edema, no Homans sign. Strong pulses in upper and lower extremities. NEUROLOGICAL: Patient is alert and oriented. Cranial nerves 2-12 are grossly intact. No focal deficits and speech is clear. SKIN: No rash and turgor is normal. Results 05/02/18 17:08 05/02/18 17:08 Cardiac Enzymes 05/02/18 05/02/18 Range/Units 17:08 21:40 AST 27 (15-37) U/L Troponin I Less than 0.02 L Less than 0.02 L (0.02-0.05) ng/mL Coagulation 05/02/18 Range/Units 17:08 PT 11.4 (9.8-11.6) sec APTT 30.8 (23.4-31.7) sec CBC 05/02/18 Range/Units 17:08 WBC 11.2 H (4.0-11.0) th/mm3 RBC 4.21 (4.00-5.30) mil/mm3 Hgb 9.9 L (11.6-15.3) gm/dL Hct 30.0 L (35.0-46.0) % Plt Count 136 L (150-450) th/mm3 Neut # (Auto) 6.0 (1.8-7.7) th/mm3 Lymph # (Auto) 4.1 (1.0-4.8) th/mm3 [place] # (Auto) 0.8 (0.0-0.9) th/mm3 Eos # (Auto) 0.2 (0.0-0.4) th/mm3 Baso # (Auto) 0.1 (0.0-0.2) th/mm3 Comprehensive Metabolic Panel 05/02/18 Range/Units 17:08 Sodium 136 (136-145) meq/L Potassium 4.8 (3.5-5.1) meq/L Chloride 104 (98-107) meq/L Carbon Dioxide 22.2 (21.0-32.0) meq/L BUN 22 H (7-18) mg/dL Creatinine 1.66 H (0.50-1.00) mg/dL Calcium 8.1 L (8.5-10.1) mg/dL AST 27 (15-37) U/L ALT 36 (10-53) U/L Alkaline Phosphatase 129 H (45-117) U/L Total Protein 7.4 (6.4-8.2) g/dL Albumin 3.4 (3.4-5.0) g/dL Intake and Output 05/02/18 05/03/18 05/03/18 22:59 06:59 14:59 Other: Weight 81.647 kg Weight On Admission 81.647 kg - Imaging and Cardiology Imaging: Impressions Chest X-Ray 05/02/18 16:57 CONCLUSION: No acute intrathoracic disease. EKG interpretations - EKG EKG shows: sinus rhythm Caprini VTE Risk Assessment Caprini VTE Risk Assessment: Moderate/High Risk (score >= 2) Caprini Risk Assessment Model: Point Value = 1 Point Value = 2 Point Value = 3 Point Value = 5 Age 41-60 Minor surgery BMI > 25 kg/m2 Swollen legs Varicose veins or History of unexplained or recurrent spontaneous Oral contraceptives or hormone replacement Sepsis (< 1 month) Serious lung disease, including pneumonia (< 1 month) Abnormal pulmonary function Acute myocardial infarction Congestive heart failure (< 1 month) History of inflammatory bowel disease Medical patient at bed rest Age 61-74 Arthroscopic surgery Major open surgery (> 45 min) Laparoscopic surgery (> 45 min) Malignancy Confined to bed (> 72 hours) Immobilizing plaster cast Central venous access Age >= 75 History of VTE Family history of VTE Factor V Leiden Prothrombin [id number] Lupus anticoagulant Anticardiolipin antibodies Elevated serum homocysteine Heparin-induced thrombocytopenia Other congenital or acquired thrombophilia Stroke (< 1 month) Elective arthroplasty Hip, pelvis, or leg fracture Acute spinal cord injury (< 1 month) Prophylaxis Regimen: Total Risk Factor Score Risk Level Prophylaxis Regimen 0-1 Low Early ambulation 2 Moderate Order ONE of the following: *Sequential Compression Device (SCD) *Heparin 5000 units SQ BID 3-4 Higher Order ONE of the following medications: *Heparin 5000 units SQ TID *Enoxaparin/Lovenox 40 mg SQ daily (WT < 150 kg, CrCl > 30 mL/min) *Enoxaparin/Lovenox 30 mg SQ daily (WT < 150 kg, CrCl > 10-29 mL/min) *Enoxaparin/Lovenox 30 mg SQ BID (WT < 150 kg, CrCl > 30 mL/min) AND/OR *Sequential Compression Device (SCD) 5 or more Highest Order ONE of the following medications: *Heparin 5000 units SQ TID (Preferred with Epidurals) *Enoxaparin/Lovenox 40 mg SQ daily (WT < 150 kg, CrCl > 30 mL/min) *Enoxaparin/Lovenox 30 mg SQ daily (WT < 150 kg, CrCl > 10-29 mL/min) *Enoxaparin/Lovenox 30 mg SQ BID (WT < 150 kg, CrCl > 30 mL/min) AND *Sequential Compression Device (SCD) Assessment and Plan - Assessment (1) Arm pain, left Code(s): M79.602 - Pain in left arm Status: Acute (2) Diabetes Code(s): E11.9 - Type 2 diabetes mellitus without complications Status: Acute (3) Hypertension Code(s): I10 - Essential (primary) hypertension Status: Acute (4) History of CVA (cerebrovascular accident) Code(s): Z86.73 - Personal history of transient ischemic attack (TIA), and cerebral infarction without residual deficits Status: Acute - Plan * Left arm pain: Patient was admitted to chest pain center to evaluate for possible cardiac etiology apparently. She was seen by Dr. Almanza. Her arm pain is clearly musculoskeletal in nature. We will try to get pain controlled. We will get a Lexiscan as she does have risk factors for heart disease. * Hypertension: Continue medication. * Diabetes: Sliding scale insulin coverage while in chest pain center. Resume medication at discharge. She is also discussed with her primary care physician being on statin medication with history of diabetes. Patient is stable at this time. H&P: Quality - VTE Deep Vein Thrombosis/Pulmonary Embolism Present on Admission: No
[2018-05-03] MEDS: Aspirin 325 MG Tablet PO SCH (09:58)
[2018-05-03] MEDS: Metoprolol Tartrate 50 MG Tablet PO SCH ×2 (09:58→21:50)
--- NOTE | 2018-05-03 10:03 | P.PNCA ---
Subjective Interval history: This patient was evaluated in concert with the physician kier pleater utilizing the early childhood worker services. The history is obtained differed from the history reported in the emergency room. The patient emphatically denies any chest pain and states that her pain is all located in her left arm the pain began several days ago fairly suddenly and was not precipitated by any obvious trauma or use. The pain is constant severe so much so that she is unable to sleep. It is worse with movement of the arm but is not relieved by rest. There is no radiation and no associated symptoms. the patient does have a history of left mastectomy in 2012 with no significant follow-up since. History is as otherwise recorded by the physician kier pleater. This patient has severe arm pain , lives alone, and is not able to care for self in the current time. She has ruled out for ACS but because of her diabetes and age she will be ruled out using nuclear scan to be sure she does not have underlying cardiac disease. However her overwhelming problem at this time is severe arm pain. We will request an orthopedic evaluation while pending nuclear scan and will obtain films of her left arm. Patient will be instructed in regard to the need for outpatient follow-up regarding her mastectomy and her arm pain and her diabetes. Medications and Allergies Active Medications: Active Medications Acetaminophen (Tylenol) 500 mg PO Q4H PRN PRN Reason: HEADACHE Aspirin (Aspirin) 325 mg PO DAILY [facility] Insulin Human Regular (Novolin R Correctional Sugar Inj) 0 units SQ ACHS [facility]; Protocol Last Admin: 05/03/18 08:02 Dose: Not Given Losartan Potassium (Cozaar) 50 mg PO DAILY [facility] Metoprolol Tartrate (Lopressor) 50 mg PO BID [facility] Morphine Sulfate (Morphine Inj) 2 mg IV.PUSH Q4H PRN PRN Reason: PAIN SCALE 8 TO 10 Last Admin: 05/03/18 02:12 Dose: 2 mg Nitroglycerin (Nitrostat Sl) 0.4 mg SL Q5M PRN PRN Reason: CHEST PAIN Ondansetron HCl (Zofran Inj) 4 mg IV.PUSH Q6H PRN PRN Reason: NAUSEA Sodium Chloride (Ns Flush) 2 ml IV.FLUSH BID [facility] Sodium Chloride (Ns Flush) 2 ml IV.FLUSH PRN PRN PRN Reason: FLUSH AFTER USING IV ACCESS Allergies Allergy/AdvReac Type Severity Reaction Status Date / Time No Known Allergies Allergy UNKNOWN Uncoded 06/16/16 14:31 NAME/TYPE OF ALLERGIES TO MEDS Home Medications Medication Instructions Recorded Confirmed Type losartan 50 mg PO DAILY 05/03/18 History metoprolol tartrate 50 mg PO BID 05/03/18 History Physical Exam Vital signs: Vital Signs 05/02/18 16:23 05/02/18 16:27 05/02/18 16:57 Temperature 98.8 F Pulse Rate 75 69 70 Respiratory Rate 19 18 18 Blood Pressure 195/91 H 224/96 H 224/96 H Pulse Oximetry 96 97 97 05/02/18 19:38 05/02/18 22:00 05/02/18 22:06 Temperature Pulse Rate 84 81 Respiratory Rate 18 16 Blood Pressure 149/79 H Pulse Oximetry 100 05/02/18 23:29 05/03/18 08:00 Temperature 98.5 F 98.5 F Pulse Rate 81 77 Respiratory Rate 22 18 Blood Pressure 214/96 H 176/81 H Pulse Oximetry 97 98 Intake & Output 05/02/18 05/03/18 05/03/18 18:59 06:59 18:59 Weight 81.647 kg 81.647 kg Other: Weight On Admission 81.647 kg Narrative: female in obvious pain when we entered the room. Skin warm and dry Head normocephalic atraumatic eyes PERRLA EOMI with bilateral intraocular lenses Mouth mucous membranes moist and well papillated upper and lower plates in place no lesions line neck supple no JVD masses nodes or bruits Chest diminished breath sounds but no rales wheezes or rhonchi. Left mastectomy appears to be well-healed is nontender over the site. Cardiovascular reveals a regular sinus rhythm with a 2/6 systolic murmur but no gallop or rub Abdomen is somewhat obese soft nontender no guarding or rebound no masses palpable Extremities no clubbing cyanosis or edema pulses are intact there is some minor superficial scrapes in the area of the shins Results 05/02/18 17:08 05/02/18 17:08 Cardiac Enzymes 05/02/18 05/02/18 Range/Units 17:08 21:40 AST 27 (15-37) U/L Troponin I Less than 0.02 L Less than 0.02 L (0.02-0.05) ng/mL Coagulation 05/02/18 Range/Units 17:08 PT 11.4 (9.8-11.6) sec APTT 30.8 (23.4-31.7) sec CBC 05/02/18 Range/Units 17:08 WBC 11.2 H (4.0-11.0) th/mm3 RBC 4.21 (4.00-5.30) mil/mm3 Hgb 9.9 L (11.6-15.3) gm/dL Hct 30.0 L (35.0-46.0) % Plt Count 136 L (150-450) th/mm3 Neut # (Auto) 6.0 (1.8-7.7) th/mm3 Lymph # (Auto) 4.1 (1.0-4.8) th/mm3 [place] # (Auto) 0.8 (0.0-0.9) th/mm3 Eos # (Auto) 0.2 (0.0-0.4) th/mm3 Baso # (Auto) 0.1 (0.0-0.2) th/mm3 Comprehensive Metabolic Panel 05/02/18 Range/Units 17:08 Sodium 136 (136-145) meq/L Potassium 4.8 (3.5-5.1) meq/L Chloride 104 (98-107) meq/L Carbon Dioxide 22.2 (21.0-32.0) meq/L BUN 22 H (7-18) mg/dL Creatinine 1.66 H (0.50-1.00) mg/dL Calcium 8.1 L (8.5-10.1) mg/dL AST 27 (15-37) U/L ALT 36 (10-53) U/L Alkaline Phosphatase 129 H (45-117) U/L Total Protein 7.4 (6.4-8.2) g/dL Albumin 3.4 (3.4-5.0) g/dL Intake and Output 05/02/18 05/03/18 05/03/18 22:59 06:59 14:59 Other: Weight 81.647 kg Weight On Admission 81.647 kg - Imaging and Cardiology Imaging: Impressions Chest X-Ray 05/02/18 16:57 CONCLUSION: No acute intrathoracic disease. Assessment and Plan - Assessment (1) Arm pain, left Code(s): M79.602 - Pain in left arm Status: Acute Plan: This patient's left arm pain is clearly noncardiac in origin and is obviously musculoskeletal. Possibility of metastatic disease, severe arthritis, degenerative disease etc. were all entertained. The severity of the pain and the fact that this patient lives alone raises some concern regarding need for further therapeutic intervention. Her low-grade anemia and elevated alkaline phosphatase and low calcium are also of some concern. Cardiac status will be further evaluated with a Lexiscan and an orthopedic consult will be requested to the emergency room. Some consideration given towards admitting her for severe intractable pain. (2) Diabetes Code(s): E11.9 - Type 2 diabetes mellitus without complications Status: Acute (3) Hypertension Code(s): I10 - Essential (primary) hypertension Status: Acute (4) History of CVA (cerebrovascular accident) Code(s): Z86.73 - Personal history of transient ischemic attack (TIA), and cerebral infarction without residual deficits Status: Acute - Plan * Left arm pain: Patient was admitted to chest pain center to evaluate for possible cardiac etiology apparently. She was seen by Dr. Almanza. Her arm pain is clearly musculoskeletal in nature. We will try to get pain controlled. We will get a Lexiscan as she does have risk factors for heart disease. * Hypertension: Continue medication. * Diabetes: Sliding scale insulin coverage while in chest pain center. Resume medication at discharge. She is also discussed with her primary care physician being on statin medication with history of diabetes. Patient is stable at this time.
[2018-05-03] MEDS ORDERED: Regadenoson Inj 0.4 MG/5 ML Syringe IV.PUSH ONE (10:31)
[2018-05-03] MEDS ORDERED: Lidocaine 1% Inj 50 ML Vial INFILTRATN ONE (11:53)
--- NOTE | 2018-05-03 12:02 | NM ---
EXAM DATE: 05/03/2018 11:57 AM EST AGE/SEX: 78 years / Female INDICATIONS:Angina. . Sharp left arm pain and shortness of breath. CLINICAL DATA: This is the patient's initial encounter. Patient reports that signs and symptoms have been present for 3 days and indicates a pain score of 3/10. MEDICAL/SURGICAL HISTORY: Hypertension. Diabetes. Carcinoma, breast. Arthritis None. COMPARISON: No prior exams available for comparison. DOSE: 8.7 mCi Tc 99m Myoview at rest 25.6 mCi [id number] at stress 0.4 mg Lexiscan STRESS SYMPTOMS: None. EJECTION FRACTION: 48 % TECHNIQUE: The patient underwent pharmacologic stress with infusion of prescribed dose. Continuous ECG tracing was monitored during stress. Gated SPECT imaging was performed after stress and conventi onal SPECT imaging was performed at rest. The examination was performed on a SPECT/CT scanner, both attenuation and non-corrected datasets were reviewed. FINDINGS: Distribution: The maximum perfused segment at stress is in the anterior wall. Perfusion Study: The pattern of perfusion at stress is within normal limits. Gated Study: Mild generalized hypokinesia and mild left ventricular chamber enlargement are noted. Th e ejection fraction is calculated at 48%. RISK CATEGORY: Intermediate (1-3 % Annual Mortality Rate) CONCLUSION: 1. Mild ventricular dysfunction with dilated left ventricle and mild hypokinesia with 48% ejection f raction. 2. No evidence of fixed or reversible perfusion abnormalities. Electronically signed by: Octavio López MD Board Certified Radiologist 05/03/2018 12:01 PM EST
--- NOTE | 2018-05-03 12:37 | XR ---
EXAM DATE: 05/03/2018 12:13 PM EST AGE/SEX: 78 years / Female INDICATIONS: No known trauma, pain in her left arm. CLINICAL DATA: This is the patient's initial encounter. Patient reports that signs and symptoms have been present for 1 week and indicates a pain score of 10/10. MEDICAL/SURGICAL HISTORY: None. None. COMPARISON: [facility] [place], FOREARM LEFT 2V, 05/03/2018. . FINDINGS: Bony structures are intact and in normal alignment. Osseous density is normal. Soft tissues are unre markable. No radiopaque foreign bodies seen. CONCLUSION: Negative exam. Electronically signed by: Simeon Castellanos MD Board Certified Radiologist 05/03/2018 12:36 PM MICHELLE T
--- NOTE | 2018-05-03 12:38 | XR ---
EXAM DATE: 05/03/2018 12:16 PM EST AGE/SEX: 78 years / Female INDICATIONS: No known trauma, pain in her left arm. CLINICAL DATA: This is the patient's initial encounter. Patient reports that signs and symptoms have been present for 1 week and indicates a pain score of 10/10. MEDICAL/SURGICAL HISTORY: None. None. COMPARISON: No prior exams available for comparison. FINDINGS: Bony structures are intact and in normal alignment. Osseous density is normal. Soft tissues are unre markable. No radiopaque foreign bodies seen. CONCLUSION: Negative exam. Electronically signed by: Simeon Castellanos MD Board Certified Radiologist 05/03/2018 12:36 PM MICHELLE T
[2018-05-03] MEDS ORDERED: Gadobutrol PF 10 MMOL/10 ML Vial (for RAD) IV.SIG ONE (14:56)
[2018-05-03 15:10] LABS: Color,Synovial Fluid RED (Straw)
[2018-05-03 15:11] LABS: Appearance,Synovial Fluid MARKED (Clear); Lymphocytes,Synovial Fluid 12 %; Neutrophils,Synovial Fluid 86 % (0-25)
--- NOTE | 2018-05-03 15:29 | MR ---
EXAM DATE: 05/03/2018 3:08 PM EST AGE/SEX: 78 years / Female INDICATIONS: Abscess. Pain in left elbow for a few days. CLINICAL DATA: This is the patient's initial encounter. Patient reports that signs and symptoms have been present for 4 - 6 days and indicates a pain score of 10/10. MEDICAL/SURGICAL HISTORY: Diabetes mellitus type II. Hypertension. Carcinoma, breast. Prior stroke. . Femur sx, Wrist sx, eye sx. COMPARISON: [facility], HUMERUS LEFT MIN 2V, 05/03/2018. . TECHNIQUE: Multiplanar, multisequence MRI examination was performed without contrast and after the i ntravenous administration of 8 ml Gadavist (gadobutrol) contrast as a single exam dose. FINDINGS: Study is limited, obtained with the elbow flexed at 90 degrees. There is a broad area of edema in the soft tissues overlying the lateral epicondyle, lateral aspect o f the olecranon and radial head. Most of the edema is subcutaneous but there is some edema within the common extensor tendon which appears and moderate to severe tendinosis. There is associated moderate intensity, reactive appearing enhancement. No well developed or rim-enhancing fluid collections are demonstrated. The lateral epicondyle itself has considerable cortical irregularity over approximately 1 cm area, fo r example series 3 image 19. There is associated mild and fairly localized adjacent marrow edema but without associated T1 marrow signal abnormality. There is a small to moderate left elbow joint effusion. CONCLUSION: 1. Indurated and edematous soft tissues are seen laterally and posterolaterally of the left elbow wi thout a drainable abscess. The soft tissue changes are nonspecific; cellulitis would be in the differ ential but I believe a component of extensor tendinosis/lateral epicondylitis is likely. Repetitive/o veruse and inflammatory etiologies such as diabetic tendinopathy or gout would be in the differential . There is an apparent small and mostly chronic appearing erosion of the lateral epicondyle. Features are not typical of osteomyelitis. 2. Small to moderate left elbow joint effusion, nonspecific. Electronically signed by: Venkat Basilio MD Board Certified Radiologist 05/03/2018 3:28 PM EST
[2018-05-03] MEDS: Sod Chloride 0.9% Inj 1,000 ML IV.CONT SCH (15:41)
[2018-05-03] MEDS ORDERED: Vancomycin Consult Pharmacy OTHER PRN (16:42)
[2018-05-03] MEDS ORDERED: Naloxone Inj 0.4 MG/ML Vial IV.PUSH PRN (16:45)
[2018-05-03] MEDS ORDERED: Piperacil/Tazo 3.375 GM Premix 3.375 GM/50 ML PIGGYBACK IV.SIG SCH (16:45)
--- NOTE | 2018-05-03 20:13 | P.CONOP ---
[facility] Orthopedics Consult Note - [facility] Consult date: 05/03/18 Chief complaint: Left Arm Pain Narrative: 78-year-old female presents with a one-week history of left arm pain. She localizes pain to her left arm elbow and forearm. She notes acute onset symptoms. She denies radicular pain. Denies paresthesias to the fingers. She notes that she had no antecedent trauma or other injury. She denies antecedent history of elbow or arm pain. She denies fever or chills at home. No systemic symptoms. Review of Systems Constitutional: Denies chills, Denies fever(s) Cardiovascular: Denies chest pain Respiratory: Denies cough Gastrointestinal: Denies abdominal pain Musculoskeletal: Reports joint pain Neurologic: Denies tingling/numbness/burning sensations Psychiatric: Denies anxiety, Denies depression PMFSH - History History Provided By: Patient, Family Member - Medical History Medical History: Medical History (Last Reviewed 05/02/18 @ 17:16 by Jacklyn Pandey MD) Arthritis Diabetes mellitus HTN (hypertension) History of breast cancer - Tobacco History Second Hand Smoke Exposure: No Smoking Status: Never smoker - Alcohol History How Often Do You Have a Drink Containing Alcohol: Never - Substance Use History Substance History: No History of Abuse - Travel History Recent Travel in the [place] Within the Last 8 Weeks: No Recent Travel Out of the Country Within the Last 8 Weeks: No - Immunization History Tetanus Immunization: Unsure Medications and Allergies Active Medications: Active Medications Acetaminophen (Tylenol) 500 mg PO Q4H PRN PRN Reason: HEADACHE Hydrocodone Bitart/Acetaminophen ([place] 7.5/325) 1 tab PO Q4H PRN PRN Reason: Pain Scale 8 To 10 Hydrocodone Bitart/Acetaminophen ([place] 5/325) 1 tab PO Q4H PRN PRN Reason: Pain Scale 3 To 7 Amlodipine Besylate (Norvasc) 10 mg PO DAILY [facility] Aspirin (Aspirin) 325 mg PO DAILY [facility] Last Admin: 05/03/18 09:58 Dose: 325 mg Clonidine HCl (Catapres) 0.1 mg PO Q6H PRN PRN Reason: SBP> OR = 180, DBP> OR = 100 Sodium Chloride (Ns Inj) 1,000 mls @ 80 mls/hr IV.CONT .[id number] [facility] Last Admin: 05/03/18 15:41 Dose: 80 mls/hr Insulin Human Regular (Novolin R [facility] Sugar Inj) 0 units SQ ACHS [facility]; Protocol Last Admin: 05/03/18 17:29 Dose: Not Given Losartan Potassium (Cozaar) 50 mg PO DAILY [facility] Last Admin: 05/03/18 09:58 Dose: 50 mg Metoprolol Tartrate (Lopressor) 50 mg PO BID [facility] Last Admin: 05/03/18 09:58 Dose: 50 mg Morphine Sulfate (Morphine Inj) 2 mg IV.PUSH Q4H PRN PRN Reason: BREAKTHROUGH PAIN Last Admin: 05/03/18 15:42 Dose: 2 mg Naloxone HCl (Narcan Inj) 0.4 mg IV.PUSH UNSCH PRN PRN Reason: SEE LABEL COMMENTS Nitroglycerin (Nitrostat Sl) 0.4 mg SL Q5M PRN PRN Reason: CHEST PAIN Ondansetron HCl (Zofran Inj) 4 mg IV.PUSH Q6H PRN PRN Reason: NAUSEA Sodium Chloride (Ns Flush) 2 ml IV.FLUSH BID [facility] Last Admin: 05/03/18 09:00 Dose: 2 ml Sodium Chloride (Ns Flush) 2 ml IV.FLUSH PRN PRN PRN Reason: FLUSH AFTER USING IV ACCESS Allergies Allergy/AdvReac Type Severity Reaction Status Date / Time No Known Allergies Allergy UNKNOWN Uncoded 06/16/16 14:31 NAME/TYPE OF ALLERGIES TO MEDS Home Medications Medication Instructions Recorded Confirmed Type losartan 50 mg PO DAILY 05/03/18 History metoprolol tartrate 50 mg PO BID 05/03/18 History Exam Vital signs: Vital Signs 05/02/18 22:00 05/02/18 22:06 05/02/18 23:29 Temperature 98.5 F Pulse Rate 81 81 Respiratory Rate 16 22 Blood Pressure 214/96 H Pulse Oximetry 97 05/03/18 08:00 05/03/18 09:58 05/03/18 13:17 Temperature 98.5 F 98.2 F Pulse Rate 77 78 72 Respiratory Rate 18 16 Blood Pressure 176/81 H 198/83 H Pulse Oximetry 98 95 05/03/18 16:49 Temperature 98.0 F Pulse Rate 71 Respiratory Rate 16 Blood Pressure 196/87 H Pulse Oximetry 98 Intake & Output 05/03/18 05/03/18 05/04/18 06:59 18:59 06:59 Weight 81.647 kg Other: # Voids 2 Date of Last Bowel Movement 05/02/18 Weight On Admission 81.647 kg - Constitutional no acute distress - Routine HEENT Exam Head: Present: normocephalic, atraumatic - Routine Respiratory Exam Absent: accessory muscle use - Routine Cardiovascular Exam Present: RRR - Routine Abdominal Exam Present: soft. Absent: distended - Routine Extremities Exam Comments: Focused evaluation of the left upper extremity demonstrates evident effusion about the elbow. There is no overlying skin change or cellulitis. There is pain full elbow range of motion with tenderness localized globally about the distal humerus elbow and proximal forearm. There is no pain with passive range of motion of the wrist and hand. Sensation is intact to the median, radial, ulnar nerve distribution. There is full and range of motion. 2+ radial pulse. - Routine Skin Exam Present: intact - Routine Neurological Exam Present: alert, oriented X3 Results - Labs Result Diagrams: 05/02/18 17:08 05/02/18 17:08 Labs: Laboratory Results - last 24 hr 05/02/18 05/03/18 05/03/18 21:40 07:41 12:18 ESR POC Glucose 89 204 H Total Creatine Kinase 77 Troponin I Less than 0.02 L C-Reactive Protein Synovial Color Synovial Appearance Synovial RBC Synovial Nuc Cells Synovial Neutrophils Synovial Lymphocytes Synovial Histocytes Synovial Crystals 05/03/18 05/03/18 05/03/18 12:43 12:43 12:52 ESR 17 POC Glucose Total Creatine Kinase Troponin I C-Reactive Protein 0.92 H Synovial Color Red Synovial Appearance Marked Synovial RBC 228670 H Synovial Nuc Cells 500 H Synovial Neutrophils 86 H Synovial Lymphocytes 12 Synovial Histocytes 2 Synovial Crystals 05/03/18 05/03/18 12:52 17:25 ESR POC Glucose 106 Total Creatine Kinase Troponin I C-Reactive Protein Synovial Color Synovial Appearance Synovial RBC Synovial Nuc Cells Synovial Neutrophils Synovial Lymphocytes Synovial Histocytes Synovial Crystals None - Diagnostic results Imaging: Impressions Elbow MRI 05/03/18 00:00 CONCLUSION: 1. Indurated and edematous soft tissues are seen laterally and posterolaterally of the left elbow without a drainable abscess. The soft tissue changes are nonspecific; cellulitis would be in the differential but I believe a component of extensor tendinosis/lateral epicondylitis is likely. Repetitive/ overuse and inflammatory etiologies such as diabetic tendinopathy or gout would be in the differential. There is an apparent small and mostly chronic appearing erosion of the lateral epicondyle. Features are not typical of osteomyelitis. 2. Small to moderate left elbow joint effusion, nonspecific. Forearm X-Ray 05/03/18 00:00 CONCLUSION: Negative exam. Humerus X-Ray 05/03/18 00:00 CONCLUSION: Negative exam. Myocardial Perfusion Scan Nuc Med 05/03/18 09:01 CONCLUSION: 1. Mild ventricular dysfunction with dilated left ventricle and mild hypokinesia with 48% ejection fraction. 2. No evidence of fixed or reversible perfusion abnormalities. Assessment and Plan - Assessment and Plan 78-year-old female with history of diabetes, presents with acute onset left upper extremity pain. Evaluation was concerning for possible septic joint given the effusion and painful passive range of motion and elevated CRP. Elbow aspiration was performed with WBCs of 500. this is just above the limits of normal however, well below the threshold of 50,000 to consider a septic joint. MRI was reviewed which demonstrated evident effusion and soft tissue changes about the elbow with no evident abscess, or osteomyelitis. Her underlying diagnosis is not clear. Despite negative crystals her synovial analysis, cannot rule out a crystalline arthropathy. Other considerations in the differential would be tendinopathy versus early presentation of shingles. Consider treatment for gout. Consider rheumatology evaluation. No acute orthopedic surgery intervention is indicated.
[2018-05-04 04:55] LABS: Baso # (Auto) 0.1 th/mm3 (0.0-0.2); Baso % (Auto) 0.6 % (0.0-2.0); Eos # (Auto) 0.2 th/mm3 (0.0-0.4); Eos % (Auto) 2.3 % (0.0-4.0); Hematocrit 27.4 % (35.0-46.0); Hemoglobin 8.7 gm/dL (11.6-15.3); Lymph % (Auto) 41.1 % (9.0-44.0); Mean Corpuscular HGB Conc 31.7 % (32.0-36.0); Mean Corpuscular Hemoglobin 22.9 pg (27.0-34.0); Mean Corpuscular Volume 72.2 fL (80.0-100.0); Mean Platelet Volume 10.3 fL (7.0-11.0); Mono # (Auto) 0.7 th/mm3 (0.0-0.9); Neut # (Auto) 4.8 th/mm3 (1.8-7.7); Platelet Count 110 th/mm3 (150-450); Red Blood Count 3.79 mil/mm3 (4.00-5.30); Red Cell Distribution Width 15.5 % (11.6-17.2); White Blood Count 9.8 th/mm3 (4.0-11.0)
[2018-05-04 05:27] LABS: Calcium 6.5 mg/dL (8.5-10.1); Carbon Dioxide 24.8 meq/L (21.0-32.0); Potassium 3.9 meq/L (3.5-5.1)
[2018-05-04 05:44] LABS: Albumin 2.7 g/dL (3.4-5.0); Calcium-Albumin Corrected 7.5 mg/dL (8.5-10.1)
[2018-05-04] MEDS: Sod Chloride 0.9% Inj 1,000 ML IV.CONT SCH ×2 (06:00→16:46)
--- NOTE | 2018-05-04 07:44 | TR ---
Date Performed: 05/03/2018 Time Performed: 10:47:29 DOCTOR: Jean Claude Linton DRUG LIST: CLINICAL HISTORY: REASON FOR TEST: REASON FOR ENDING: OBSERVATION: CONCLUSION: COMMENTS: Lexiscan stress test was performed under standard four minute protocol. Radionuclide was injected one minute prior to ending the test. No electrocardiographic abormalities were present t o suggest ischemia. Nuclear imaging and interpretation are pending.
[2018-05-04] MEDS: amLODIPine 10 MG Tablet PO SCH (08:12)
[2018-05-04] MEDS: Aspirin 325 MG Tablet PO SCH (08:12)
[2018-05-04] MEDS: Metoprolol Tartrate 50 MG Tablet PO SCH ×2 (08:13→20:56)
[2018-05-04] MEDS: Sodium Chloride 0.9% 2 ML Flush BID IV.FLUSH SCH ×2 (08:13→20:49)
--- NOTE | 2018-05-04 08:28 | P.PN ---
Subjective Interval history: Follow-up for left elbow pain/effusion, concern for septic joint. Patient reports continued diffuse left elbow pain, worse after aspiration yesterday. States she is unable to extend the elbow and prefers to keep it in a flexed position with minimal movement. She denies any fevers or chills. Denies any other medical complaints including no chest pain, palpitations, or shortness of breath. Physical Exam Vital signs: Vital Signs 05/03/18 09:58 05/03/18 13:17 05/03/18 16:49 Temperature 98.2 F 98.0 F Pulse Rate 78 72 71 Respiratory Rate 16 16 Blood Pressure 198/83 H 196/87 H Pulse Oximetry 95 98 05/03/18 20:00 05/04/18 00:00 05/04/18 03:50 Temperature 98.6 F 99.0 F 98.6 F Pulse Rate 87 74 66 Respiratory Rate 20 20 17 Blood Pressure 140/63 155/75 H 127/64 Pulse Oximetry 94 L 93 L 94 L 05/04/18 04:00 05/04/18 07:57 Temperature 99.0 F Pulse Rate 65 68 Respiratory Rate 16 Blood Pressure 184/81 H Pulse Oximetry 91 L Intake & Output 05/03/18 05/04/18 05/04/18 18:59 06:59 18:59 Intake Total 1000 / 1000 Balance 1000 / 1000 Intake: IV 1000 / 1000 NS Inj 1,000 ML @ 80 mls/hr IV. 1000 / 1000 CONT .[id number] Rx#:[id number] Other: # Voids 2 3 Date of Last Bowel Movement 05/02/18 05/02/18 Narrative: GENERAL: Well-nourished, well-developed pleasant elderly female patient in [facility]. SKIN: Warm and dry. No rash. HEENT: Normocephalic. Atraumatic. Pupils equal and round. Mucous membranes pink and moist. CARDIOVASCULAR: Regular rate and rhythm. 2/6 systolic murmur noted. RESPIRATORY: No accessory muscle use. Clear to auscultation. Breath sounds equal bilaterally. GASTROINTESTINAL: Abdomen soft, non-tender, nondistended. Normoactive bowel sounds x4. MUSCULOSKELETAL: No obvious deformities. Extremities without clubbing, cyanosis , or edema. Left posterior elbow with effusion, puncture site from aspiration with minimal bloody drainage, warm to touch without any significant overlying erythema. Limited R OM of the left elbow secondary to pain. NEUROLOGICAL: Awake and alert. No obvious cranial nerve deficits. Motor grossly within normal limits. Moving all extremities spontaneously. Normal speech. PSYCHIATRIC: Appropriate mood and affect; insight and judgment normal. Results - Labs CBC & Chem 7: 05/04/18 04:19 05/04/18 04:19 Laboratory Results - last 24 hr 05/03/18 05/03/18 05/03/18 12:18 12:43 12:43 WBC RBC Hgb Hct MCV MCH MCHC RDW Plt Count MPV Neut % (Auto) Lymph % (Auto) [place] % (Auto) Eos % (Auto) Baso % (Auto) Neut # (Auto) Lymph # (Auto) [place] # (Auto) Eos # (Auto) Baso # (Auto) WBC Differential Differential Comment ESR 17 Sodium Potassium Chloride Carbon Dioxide Anion Gap BUN Creatinine Estimated GFR POC Glucose 204 H Random Glucose Calcium Calcium Adj for Albumin C-Reactive Protein 0.92 H Albumin Synovial Color Synovial Appearance Synovial RBC Synovial Nuc Cells Synovial Neutrophils Synovial Lymphocytes Synovial Histocytes Synovial Crystals 05/03/18 05/03/18 05/03/18 12:52 12:52 17:25 WBC RBC Hgb Hct MCV MCH MCHC RDW Plt Count MPV Neut % (Auto) Lymph % (Auto) [place] % (Auto) Eos % (Auto) Baso % (Auto) Neut # (Auto) Lymph # (Auto) [place] # (Auto) Eos # (Auto) Baso # (Auto) WBC Differential Differential Comment ESR Sodium Potassium Chloride Carbon Dioxide Anion Gap BUN Creatinine Estimated GFR POC Glucose 106 Random Glucose Calcium Calcium Adj for Albumin C-Reactive Protein Albumin Synovial Color Red Synovial Appearance Marked Synovial RBC 219646 H Synovial Nuc Cells 500 H Synovial Neutrophils 86 H Synovial Lymphocytes 12 Synovial Histocytes 2 Synovial Crystals None 05/03/18 05/04/18 05/04/18 21:42 04:19 04:19 WBC 9.8 RBC 3.79 L Hgb 8.7 L Hct 27.4 L MCV 72.2 L MCH 22.9 L MCHC 31.7 L RDW 15.5 Plt Count 110 L MPV 10.3 Neut % (Auto) 49.0 Lymph % (Auto) 41.1 [place] % (Auto) 7.0 Eos % (Auto) 2.3 Baso % (Auto) 0.6 Neut # (Auto) 4.8 Lymph # (Auto) 4.0 [place] # (Auto) 0.7 Eos # (Auto) 0.2 Baso # (Auto) 0.1 WBC Differential . Differential Comment Auto diff final ESR Sodium 141 Potassium 3.9 D Chloride 111 H Carbon Dioxide 24.8 Anion Gap 5 BUN 21 H Creatinine 1.31 H Estimated GFR 48 L POC Glucose 205 H Random Glucose 187 H Calcium 6.5 L* D Calcium Adj for Albumin 7.5 L C-Reactive Protein Albumin 2.7 L D Synovial Color Synovial Appearance Synovial RBC Synovial Nuc Cells Synovial Neutrophils Synovial Lymphocytes Synovial Histocytes Synovial Crystals Microbiology 05/03/18 12:52 Fluid - Synovial Fluid Gram Stain - Final - Imaging Impressions Elbow MRI 05/03/18 00:00 CONCLUSION: 1. Indurated and edematous soft tissues are seen laterally and posterolaterally of the left elbow without a drainable abscess. The soft tissue changes are nonspecific; cellulitis would be in the differential but I believe a component of extensor tendinosis/lateral epicondylitis is likely. Repetitive/ overuse and inflammatory etiologies such as diabetic tendinopathy or gout would be in the differential. There is an apparent small and mostly chronic appearing erosion of the lateral epicondyle. Features are not typical of osteomyelitis. 2. Small to moderate left elbow joint effusion, nonspecific. Forearm X-Ray 05/03/18 00:00 CONCLUSION: Negative exam. Humerus X-Ray 05/03/18 00:00 CONCLUSION: Negative exam. Myocardial Perfusion Scan Nuc Med 05/03/18 09:01 CONCLUSION: 1. Mild ventricular dysfunction with dilated left ventricle and mild hypokinesia with 48% ejection fraction. 2. No evidence of fixed or reversible perfusion abnormalities. Assessment and Plan - Plan 78-year-old female with history of hypertension, diabetes, breast cancer s/p mastectomy 2012, presents with a one-week history of left arm pain. The patient was initially admitted to chest pain center, ACS ruled out with negative serial cardiac enzymes, and nuclear stress test with no evidence of ischemia. Patient was found to have a diffusely edematous left elbow requiring further workup, therefore admitted to hospitalist. Left elbow effusion/pain: Acute, symptoms times 1 week, patient denies any traumatic injury or wound -Orthopedics consulted -Status post bedside aspiration on 05/03, significant for RBCs 144K, WBCs 500 , Neutrophils 86, with cultures pending -Unlikely gout as aspiration was negative for crystals -Pain control with tylenol and [place] prn -Ortho recommended holding off on antibiotics for now, recommended evaluation by rheumatology (only available as outpatient) -Will consult ID for further evaluation/recommendations DIAN: Cr 1.66, no reported hx of CKD -give IVF hydration -avoid nephrotoxins -repeat BMP with Cr 1.31, improving -continue to monitor Hypertension: uncontrolled -continue patient's cozaar, metoprolol -started on norvasc, increased to 10mg -clonidine prn -monitor BP, adjust antihypertensives as needed Diabetes Mellitus: chronic -monitor Accu-checks and cover with SSI DVT Prophylaxis: teds/SCDs; avoid chemical prophylaxis incase surgical intervention is indicated Discharge Planning: Await ID evaluation/recommendations. Possible discharge 05/05 if symptoms continue to improve.
[2018-05-04] MEDS: Insulin NovoLIN Regular Correctional Sugar Inj SQ SCH ×4 (09:18→22:44)
--- NOTE | 2018-05-04 15:06 | P.PNOP ---
Subjective Interval history: Patient notes that her pain has improved today. He still relates pain localized to the distal humerus, elbow and proximal forearm. Denies paresthesias. Denies other complaints. Physical Exam Vital signs: Vital Signs 05/03/18 16:49 05/03/18 20:00 05/04/18 00:00 Temperature 98.0 F 98.6 F 99.0 F Pulse Rate 71 87 74 Respiratory Rate 16 20 20 Blood Pressure 196/87 H 140/63 155/75 H Pulse Oximetry 98 94 L 93 L 05/04/18 03:50 05/04/18 04:00 05/04/18 07:57 Temperature 98.6 F 99.0 F Pulse Rate 66 65 68 Respiratory Rate 17 16 Blood Pressure 127/64 184/81 H Pulse Oximetry 94 L 91 L 05/04/18 08:00 05/04/18 09:19 05/04/18 11:29 Temperature 99.0 F Pulse Rate 84 69 Respiratory Rate 18 16 Blood Pressure 148/63 H Pulse Oximetry 91 L Intake & Output 05/03/18 05/04/18 05/04/18 18:59 06:59 18:59 Intake Total 1000 / 1000 Balance 1000 / 1000 Intake: IV 1000 / 1000 NS Inj 1,000 ML @ 80 mls/hr IV. 1000 / 1000 CONT .[id number] [facility] Rx#:[id number] Other: # Voids 2 3 Date of Last Bowel Movement 05/02/18 05/02/18 - Constitutional no acute distress - Routine Extremities Exam Comments: Focused evaluation of the left upper extremity demonstrates no evidence of cellulitis. No soft tissue fluctuance. Painful range of motion of the elbow. Nonpainful about the wrist and hand. Sensation is intact to the median, radial , ulnar nerve distribution. 2+ radial pulse. Results - Labs CBC & Chem 7: 05/04/18 04:19 05/04/18 04:19 Laboratory Results - last 24 hr 05/03/18 05/03/18 05/03/18 12:52 17:25 21:42 WBC RBC Hgb Hct MCV MCH MCHC RDW Plt Count MPV Neut % (Auto) Lymph % (Auto) [place] % (Auto) Eos % (Auto) Baso % (Auto) Neut # (Auto) Lymph # (Auto) [place] # (Auto) Eos # (Auto) Baso # (Auto) WBC Differential Differential Comment Sodium Potassium Chloride Carbon Dioxide Anion Gap BUN Creatinine Estimated GFR POC Glucose 106 205 H Random Glucose Calcium Calcium Adj for Albumin Albumin Synovial Color Red Synovial Appearance Marked Synovial RBC 375189 H Synovial Nuc Cells 500 H Synovial Neutrophils 86 H Synovial Lymphocytes 12 Synovial Histocytes 2 05/04/18 05/04/18 05/04/18 04:19 04:19 08:15 WBC 9.8 RBC 3.79 L Hgb 8.7 L Hct 27.4 L MCV 72.2 L MCH 22.9 L MCHC 31.7 L RDW 15.5 Plt Count 110 L MPV 10.3 Neut % (Auto) 49.0 Lymph % (Auto) 41.1 [place] % (Auto) 7.0 Eos % (Auto) 2.3 Baso % (Auto) 0.6 Neut # (Auto) 4.8 Lymph # (Auto) 4.0 [place] # (Auto) 0.7 Eos # (Auto) 0.2 Baso # (Auto) 0.1 WBC Differential . Differential Comment Auto diff final Sodium 141 Potassium 3.9 D Chloride 111 H Carbon Dioxide 24.8 Anion Gap 5 BUN 21 H Creatinine 1.31 H Estimated GFR 48 L POC Glucose 173 H Random Glucose 187 H Calcium 6.5 L* D Calcium Adj for Albumin 7.5 L Albumin 2.7 L D Synovial Color Synovial Appearance Synovial RBC Synovial Nuc Cells Synovial Neutrophils Synovial Lymphocytes Synovial Histocytes 05/04/18 12:04 WBC RBC Hgb Hct MCV MCH MCHC RDW Plt Count MPV Neut % (Auto) Lymph % (Auto) [place] % (Auto) Eos % (Auto) Baso % (Auto) Neut # (Auto) Lymph # (Auto) [place] # (Auto) Eos # (Auto) Baso # (Auto) WBC Differential Differential Comment Sodium Potassium Chloride Carbon Dioxide Anion Gap BUN Creatinine Estimated GFR POC Glucose 328 H Random Glucose Calcium Calcium Adj for Albumin Albumin Synovial Color Synovial Appearance Synovial RBC Synovial Nuc Cells Synovial Neutrophils Synovial Lymphocytes Synovial Histocytes Microbiology 05/03/18 12:52 Fluid - Synovial Fluid Gram Stain - Final 05/03/18 12:52 Fluid - Synovial Fluid Body Fluid Culture - Preliminary No growth in 24 hours - Imaging Impressions Elbow MRI 05/03/18 00:00 CONCLUSION: 1. Indurated and edematous soft tissues are seen laterally and posterolaterally of the left elbow without a drainable abscess. The soft tissue changes are nonspecific; cellulitis would be in the differential but I believe a component of extensor tendinosis/lateral epicondylitis is likely. Repetitive/ overuse and inflammatory etiologies such as diabetic tendinopathy or gout would be in the differential. There is an apparent small and mostly chronic appearing erosion of the lateral epicondyle. Features are not typical of osteomyelitis. 2. Small to moderate left elbow joint effusion, nonspecific. Assessment and Plan - Assessment and Plan 78-year-old female with history of diabetes, presents with acute onset left upper extremity pain. Negative elbow aspirate. MRI without evidence of abscess. Clinical exam slightly improved from yesterday. Underlying etiology for left arm pain is not clear. Despite negative crystals her synovial analysis, cannot rule out a crystalline arthropathy. Other considerations in the differential would be tendinopathy versus early presentation of shingles. Consider treatment for gout. Consider rheumatology evaluation. No acute orthopedic surgery intervention is indicated. Please page orthopedic surgery, should her condition acutely deteriorate.
--- NOTE | 2018-05-04 17:31 | P.CONID ---
History of Present Illness Service: ID Consult date: 05/04/18 Requesting Physician: Ophelia Odonnell Reason for Consult: concern for septic joint of elbow Primary Care Provider: UNKNOWN Chief Complaint: Left arm pain History of Present Illness: 78 yo female, diabetic pesdents with 8 days of worsening L elbow pain denies preceding trauma On admission no fever or leukocytosis MR showed no osteomyelitis and small non specific effusion Synovial fluid with a lot of blood, but small amount of neutrophils (500). Negative G staina nd cultures Review of Systems All other systems reviewed negative except as stated in HPI PMFSH - History History Provided By: Patient, Family Member - Medical History Medical History: Medical History (Last Reviewed 05/05/18 @ 07:30 by Jessica Macdonald MD) Arthritis Diabetes mellitus HTN (hypertension) History of breast cancer - Family History Family History: Family History (Last Updated 05/05/18 @ 07:30 by Jessica Macdonald MD) Other No pertinent family history - Social History I have reviewed the patient's Social History: Yes - Tobacco History Second Hand Smoke Exposure: No Smoking Status: Never smoker - Alcohol History How Often Do You Have a Drink Containing Alcohol: Never - Substance Use History Substance History: No History of Abuse - Travel History Recent Travel in the [place] Within the Last 8 Weeks: No Recent Travel Out of the Country Within the Last 8 Weeks: No - Immunization History Tetanus Immunization: Unsure Medications and Allergies Active Medications: Active Medications Acetaminophen (Tylenol) 500 mg PO Q4H PRN PRN Reason: HEADACHE Hydrocodone Bitart/Acetaminophen ([place] 7.5/325) 1 tab PO Q4H PRN PRN Reason: Pain Scale 8 To 10 Last Admin: 05/03/18 22:48 Dose: 1 tab Hydrocodone Bitart/Acetaminophen ([place] 5/325) 1 tab PO Q4H PRN PRN Reason: Pain Scale 3 To 7 Amlodipine Besylate (Norvasc) 10 mg PO DAILY [facility] Last Admin: 05/04/18 08:12 Dose: 10 mg Aspirin (Aspirin) 325 mg PO DAILY [facility] Last Admin: 05/04/18 08:12 Dose: 325 mg Calcium Carbonate (Tums Chew) 500 mg CHEW BID [facility] Last Admin: 05/04/18 12:02 Dose: 500 mg Clonidine HCl (Catapres) 0.1 mg PO Q6H PRN PRN Reason: SBP> OR = 180, DBP> OR = 100 Last Admin: 05/04/18 16:35 Dose: 0.1 mg Sodium Chloride (Ns Inj) 1,000 mls @ 80 mls/hr IV.CONT .[id number] [facility] Last Admin: 05/04/18 16:46 Dose: 80 mls/hr Insulin Human Regular (Novolin R Correctional Sugar Inj) 0 units SQ ACHS [facility]; Protocol Last Admin: 05/04/18 13:29 Dose: 7 units Losartan Potassium (Cozaar) 50 mg PO DAILY [facility] Last Admin: 05/04/18 08:12 Dose: 50 mg Metoprolol Tartrate (Lopressor) 50 mg PO BID [facility] Last Admin: 05/04/18 08:13 Dose: 50 mg Morphine Sulfate (Morphine Inj) 2 mg IV.PUSH Q4H PRN PRN Reason: BREAKTHROUGH PAIN Last Admin: 05/03/18 15:42 Dose: 2 mg Naloxone HCl (Narcan Inj) 0.4 mg IV.PUSH UNSCH PRN PRN Reason: SEE LABEL COMMENTS Nitroglycerin (Nitrostat Sl) 0.4 mg SL Q5M PRN PRN Reason: CHEST PAIN Ondansetron HCl (Zofran Inj) 4 mg IV.PUSH Q6H PRN PRN Reason: NAUSEA Sodium Chloride (Ns Flush) 2 ml IV.FLUSH BID [facility] Last Admin: 05/04/18 08:13 Dose: 2 ml Sodium Chloride (Ns Flush) 2 ml IV.FLUSH PRN PRN PRN Reason: FLUSH AFTER USING IV ACCESS Allergies Allergy/AdvReac Type Severity Reaction Status Date / Time No Known Allergies Allergy UNKNOWN Uncoded 06/16/16 14:31 NAME/TYPE OF ALLERGIES TO MEDS Home Medications Medication Instructions Recorded Confirmed Type losartan 50 mg PO DAILY 05/03/18 History metoprolol tartrate 50 mg PO BID 05/03/18 History insulin glargine [Lantus U-100 45 unit SUBCUT HS 05/04/18 05/04/18 History Insulin] Exam Vital signs: Vital Signs 05/03/18 20:00 05/04/18 00:00 05/04/18 03:50 Temperature 98.6 F 99.0 F 98.6 F Pulse Rate 87 74 66 Respiratory Rate 20 20 17 Blood Pressure 140/63 155/75 H 127/64 Pulse Oximetry 94 L 93 L 94 L 05/04/18 04:00 05/04/18 07:57 05/04/18 08:00 Temperature 99.0 F Pulse Rate 65 68 84 Respiratory Rate 16 Blood Pressure 184/81 H Pulse Oximetry 91 L 05/04/18 09:19 05/04/18 11:29 05/04/18 16:00 Temperature 99.0 F 98.6 F Pulse Rate 69 77 Respiratory Rate 18 16 18 Blood Pressure 148/63 H 193/79 H Pulse Oximetry 91 L 95 Intake & Output 05/03/18 05/04/18 05/04/18 18:59 06:59 18:59 Intake Total 1000 / 1000 1000 / 1000 Balance 1000 / 1000 1000 / 1000 Intake: IV 1000 / 1000 1000 / 1000 NS Inj 1,000 ML @ 80 mls/hr IV. 1000 / 1000 1000 / 1000 CONT .[id number] Rx#:[id number] Other: # Voids 2 3 Date of Last Bowel Movement 05/02/18 05/02/18 - Constitutional no acute distress, average body habitus - Routine HEENT Exam Head: Present: normocephalic, atraumatic Eye: Present: EOMI, PERRL. Absent: conjunctival icterus ENT: Present: mucous membranes moist, oropharynx clear - Routine Neck Exam Present: supple, full ROM. Absent: JVD - Routine Chest/Breast/Axilla Exam Breast: Present: left mastectomy - Routine Cardiovascular Exam Present: RRR, S1, S2. Absent: murmur, gallop, rubs - Routine Abdominal Exam Present: soft, normoactive bowel sounds. Absent: tenderness, distended, organomegaly, mass - Routine Extremities Exam Absent: cyanosis, clubbing, edema Comments: STATUS LOCALIS: L elbow is erythematous, edematous with a small wound covered with crust, dry , it s quite tender to palpation Results - Labs CBC & Chem 7: 05/04/18 04:19 05/04/18 04:19 Labs: Laboratory Results - last 24 hr 05/03/18 05/04/18 05/04/18 21:42 04:19 04:19 WBC 9.8 RBC 3.79 L Hgb 8.7 L Hct 27.4 L MCV 72.2 L MCH 22.9 L MCHC 31.7 L RDW 15.5 Plt Count 110 L MPV 10.3 Neut % (Auto) 49.0 Lymph % (Auto) 41.1 [place] % (Auto) 7.0 Eos % (Auto) 2.3 Baso % (Auto) 0.6 Neut # (Auto) 4.8 Lymph # (Auto) 4.0 [place] # (Auto) 0.7 Eos # (Auto) 0.2 Baso # (Auto) 0.1 WBC Differential . Differential Comment Auto diff final Sodium 141 Potassium 3.9 D Chloride 111 H Carbon Dioxide 24.8 Anion Gap 5 BUN 21 H Creatinine 1.31 H Estimated GFR 48 L POC Glucose 205 H Random Glucose 187 H Calcium 6.5 L* D Calcium Adj for Albumin 7.5 L Albumin 2.7 L D 05/04/18 05/04/18 08:15 12:04 WBC RBC Hgb Hct MCV MCH MCHC RDW Plt Count MPV Neut % (Auto) Lymph % (Auto) [place] % (Auto) Eos % (Auto) Baso % (Auto) Neut # (Auto) Lymph # (Auto) [place] # (Auto) Eos # (Auto) Baso # (Auto) WBC Differential Differential Comment Sodium Potassium Chloride Carbon Dioxide Anion Gap BUN Creatinine Estimated GFR POC Glucose 173 H 328 H Random Glucose Calcium Calcium Adj for Albumin Albumin Assessment and Plan - Plan Cellulitis and hematoma of L elbow MR and synovial fluid not sugg of osteoarticular infection cont short cours of abx (oral) for cellulits supportive [place] monitor clinically
[2018-05-04] MEDS ORDERED: Insulin Detemir Inj 1,000 UNIT/10 ML Vial SQ SCH (21:00)
[2018-05-05] MEDS: Sod Chloride 0.9% Inj 1,000 ML IV.CONT SCH (03:54)
[2018-05-05 07:45] VITALS: O2SAT 96
[2018-05-05] MEDS: Metoprolol Tartrate 50 MG Tablet PO SCH (09:14)
[2018-05-05] MEDS: Aspirin 325 MG Tablet PO SCH (09:14)
[2018-05-05] MEDS: amLODIPine 10 MG Tablet PO SCH (09:14)
[2018-05-05] MEDS: Sodium Chloride 0.9% 2 ML Flush BID IV.FLUSH SCH (09:14)
[2018-05-05] MEDS: Insulin NovoLIN Regular Correctional Sugar Inj SQ SCH ×2 (09:16→13:34)
[2018-05-05 09:26] LABS: Baso # (Auto) 0.1 th/mm3 (0.0-0.2); Baso % (Auto) 0.8 % (0.0-2.0); Eos # (Auto) 0.2 th/mm3 (0.0-0.4); Eos % (Auto) 2.4 % (0.0-4.0); Hematocrit 29.8 % (35.0-46.0); Hemoglobin 9.5 gm/dL (11.6-15.3); Lymph # (Auto) 3.3 th/mm3 (1.0-4.8); Mean Corpuscular HGB Conc 31.9 % (32.0-36.0); Mean Corpuscular Hemoglobin 22.6 pg (27.0-34.0); Mean Corpuscular Volume 70.8 fL (80.0-100.0); Mean Platelet Volume 10.2 fL (7.0-11.0); Mono # (Auto) 0.6 th/mm3 (0.0-0.9); Neut # (Auto) 4.4 th/mm3 (1.8-7.7); Neut % (Auto) 51.8 % (16.0-70.0); Platelet Count 116 th/mm3 (150-450); Red Blood Count 4.21 mil/mm3 (4.00-5.30); Red Cell Distribution Width 15.3 % (11.6-17.2); White Blood Count 8.6 th/mm3 (4.0-11.0)
[2018-05-05 09:52] LABS: Anion Gap 6 meq/L (5-15); Blood Urea Nitrogen 24 mg/dL (7-18); Calcium 8.2 mg/dL (8.5-10.1); Carbon Dioxide 25.8 meq/L (21.0-32.0); Chloride 108 meq/L (98-107); Glomerular Filtration Rate 42 mL/min (>89); Glucose,Random 206 mg/dL (74-106); Iron 125 mcg/dL (50-170); Potassium 4.2 meq/L (3.5-5.1); Sodium 140 meq/L (136-145)
[2018-05-05 10:18] LABS: % Iron Saturation 53.8 % (20-50); Ferritin 1152 ng/mL (8-252); Total Iron Binding Capacity 232 mcg/dL (250-450); Vitamin B12 1278 pg/mL (193-986)
[2018-05-05 12:14] VITALS: BP 136/63; PULSE 66; RESP 16; TEMP 98.6
--- NOTE | 2018-05-05 18:18 | P.DS ---
DS: Providers Date of admission: 05/02/18 18:16 Primary care physician: UNKNOWN Consults: 05/02/18 18:38 HUB Only Consult Order Routine Consulting Provider: [employer],Insurance 05/03/18 09:51 Consult to Orthopedic Surgery Routine Consulting Provider: Koffi Lennon Reason for Consultation: left arm pain Notified:: Office Spoke with:: Abbi Date Notified:: 05/03/18 Time Notified:: 10:01 Ordering Provider: ELIUD 05/04/18 08:22 Consult to Infectious Diseases Routine Consulting Provider: Jessica Macdonald Reason for Consultation: concern for septic joint of elbow Notified:: Service Spoke with:: NELY Date Notified:: 05/04/18 Time Notified:: 08:42 Ordering Provider: VANESSA Akhtar date of discharge: 05/05/18 Brief History from admission: This is a 78-year-old female with history of diabetes, hypertension, breast cancer with mastectomy in 2012 that presents to ED with complaint of constant left arm pain for at least a week. States that the pain became unbearable yesterday. Denies any trauma. States pain is worsened with movement. Denies any chest discomfort. Denies shortness of breath, nausea, diaphoresis. Denies neck or back pain or other issues of her neck and back in the past. Denies history of CAD. 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 Denies known CAD and hyperlipidemia. Lifetime non-smoker. She does not know her family medical history, states that she is an orphan. DS: Diagnosis Discharge Diagnosis (1) Left elbow pain: Status: Acute Diagnosis: Principal (2) Acute kidney injury: Status: Acute Diagnosis: Principal (3) Hypertension: Status: Acute Diagnosis: Secondary (4) Diabetes: Status: Acute Diagnosis: Secondary DS: Summary Patient was admitted under the care of the hospitalist service. She was seen in consultation by performance improvement specialist Dr. Lennon. Patient underwent a bedside aspiration of the left elbow on 05/03/2018. Fluid analysis was reviewed by Dr. Lennon and he noted that despite negative crystals in her synovial fluid analysis, crystalline arthropathy could not be ruled out. Other differentials could include tendinopathy versus early presentation of shingles. No acute orthopedic surgery intervention was indicated. Outpatient rheumatology evaluation was recommended. Patient was also evaluated by infectious disease specialist Dr. Macdonald. She noted that the MRI and synovial fluid were not suggestive of osteoarticular infection. She recommended continuing with supportive measures and a short course of oral antibiotics for cellulitis. Patient was started on Keflex. She was advised to follow-up with her primary care provider on Monday as she had previously scheduled. Patient was also noted to be in acute kidney injury. This improved slightly during her stay. She was educated that she will need repeat lab work within a week through her primary care provider for continued evaluation and management. Discussed need for outpatient rheumatology evaluation especially if her symptoms did not resolve or became worse. Patient verbalized understanding of all provided instructions. A client experience manager was used for most of the communication with the patient. She did have family and friends at the bedside states that occasionally. Patient reported improvement in her left elbow pain. ED precautions were provided for any worsening signs and symptoms. Patient was hemodynamically stable at time of discharge. Time Spent with Patient Total time spent providing and/or coordinating discharge services: Greater than 30 minutes Status at Discharge Functional status at discharge: independent ambulation Quality: VTE Deep Vein Thrombosis/Pulmonary Embolism Present on Admission: No Exam Narrative Exam Narrative: GENERAL: no acute distress, well developed, well nourished SKIN: warm and dry HEAD: Normocephalic, atraumatic EYES: No scleral icterus. No injection or drainage. NECK: Supple, trachea midline. No JVD or lymphadenopathy. CARDIOVASCULAR: Regular rate and rhythm without murmurs, gallops, or rubs. RESPIRATORY: Breath sounds equal bilaterally. No accessory muscle use. GASTROINTESTINAL: Abdomen soft, non-tender, nondistended. MUSCULOSKELETAL: Left elbow mild edema. Moves all extremities. Results Labs on day of discharge: Labs from last 24 hours 05/05/18 05/05/18 05/05/18 13:27 08:35 08:35 WBC 8.6 RBC 4.21 Hgb 9.5 L Hct 29.8 L MCV 70.8 L MCH 22.6 L MCHC 31.9 L RDW 15.3 Plt Count 116 L MPV 10.2 Neut % (Auto) 51.8 Lymph % (Auto) 38.0 [place] % (Auto) 7.0 Eos % (Auto) 2.4 Baso % (Auto) 0.8 Neut # (Auto) 4.4 Lymph # (Auto) 3.3 [place] # (Auto) 0.6 Eos # (Auto) 0.2 Baso # (Auto) 0.1 WBC Differential . Differential Comment Auto diff final Sodium 140 Potassium 4.2 Chloride 108 H Carbon Dioxide 25.8 Anion Gap 6 BUN 24 H Creatinine 1.47 H Estimated GFR 42 L POC Glucose 280 H Random Glucose 206 H Calcium 8.2 L D Iron 125 TIBC 232 L % Saturation 53.8 H Ferritin 1152 H Vitamin B12 1278 H Folate Greater than 20.0 H 05/05/18 05/04/18 07:20 22:36 WBC RBC Hgb Hct MCV MCH MCHC RDW Plt Count MPV Neut % (Auto) Lymph % (Auto) [place] % (Auto) Eos % (Auto) Baso % (Auto) Neut # (Auto) Lymph # (Auto) [place] # (Auto) Eos # (Auto) Baso # (Auto) WBC Differential Differential Comment Sodium Potassium Chloride Carbon Dioxide Anion Gap BUN Creatinine Estimated GFR POC Glucose 214 H 350 H Random Glucose Calcium Iron TIBC % Saturation Ferritin Vitamin B12 Folate Preliminary micro results at discharge 05/03/18 12:52 Body Fluid Culture - Preliminary Fluid - Synovial Fluid No growth in 48 hours Impressions ITS Impressions Chest X-Ray 05/02/18 16:57 CONCLUSION: No acute intrathoracic disease. Elbow MRI 05/03/18 00:00 CONCLUSION: 1. Indurated and edematous soft tissues are seen laterally and posterolaterally of the left elbow without a drainable abscess. The soft tissue changes are nonspecific; cellulitis would be in the differential but I believe a component of extensor tendinosis/lateral epicondylitis is likely. Repetitive/ overuse and inflammatory etiologies such as diabetic tendinopathy or gout would be in the differential. There is an apparent small and mostly chronic appearing erosion of the lateral epicondyle. Features are not typical of osteomyelitis. 2. Small to moderate left elbow joint effusion, nonspecific. Forearm X-Ray 05/03/18 00:00 CONCLUSION: Negative exam. Humerus X-Ray 05/03/18 00:00 CONCLUSION: Negative exam. Myocardial Perfusion Scan Nuc Med 05/03/18 09:01 CONCLUSION: 1. Mild ventricular dysfunction with dilated left ventricle and mild hypokinesia with 48% ejection fraction. 2. No evidence of fixed or reversible perfusion abnormalities. Discharge Plan Discharge Disposition Patient Disposition: Discharge Home Discharge Condition Condition: Stable Discharge Order Discharge Orders: Discharge Order (Routine); Ordered 05/05/18 Ordered By: Abbey Queen Discharge Details Anticipated Discharge Date: 05/05/18 Discharge Comment: Please follow up with your primary care provider for a referral to Rheumatology for continued evalaution and treatment of your left elbow. Physicians Team ED Provider: Jacklyn Pandey Primary Care Provider: UNKNOWN, Attending Provider: Derek Iniguez Other Providers: [facility],Insurance ; Koffi Lennon ; Jessica Macdonald Rxs /Orders / Referrals /Forms Prescriptions: New aspirin 325 mg Tablet 325 mg PO DAILY Qty: 0 RF: 0 amlodipine [Norvasc] 10 mg Tablet 10 mg PO DAILY Qty: 30 RF: 0 cephalexin 500 mg Capsule 500 mg PO BID Qty: 10 RF: 0 Continue losartan 50 mg Tablet 50 mg PO DAILY RF: 0 metoprolol tartrate 50 mg Tablet 50 mg PO BID RF: 0 insulin glargine [Lantus U-100 Insulin] 100 unit/mL Solution 45 unit SUBCUT HS RF: 0 Referrals: Professor Of Family Medicine [Outside] - See Instructions (Follow up with provider of choice in 1-2 weeks for continued evaluation and management of your left elbow redness. ) Myke Garcia, [Family Provider] - See Instructions (Follow up with your primary care provider on Monday as previously scheduled. ) UNKNOWN, [Primary Care Provider] - See Instructions Discharge Instructions Patient Printed Instructions: Gout (DC) Additional Instructions: Your Health Problems: Goals to Promote Your Health: * To prevent worsening of your condition * To maintain your health at the optimal level Directions to Meet Your Goals: * Take your medications as prescribed * Follow your dietary instruction * Follow activity as directed * Keep your appointments as scheduled * Take your immunizations and boosters as scheduled * If your symptoms worsen call your PCP * If no PCP go to Urgent Care or Emergency Room Smoking is dangerous to your health. Avoid second hand smoke. You may reach the 24-hour crisis hotline for domestic abuse at . Status ED Status: Left Department Discharge Information Discharge Date/Time: 05/05/18 16:45
== END 2018-05-05 16:45 | disposition home or self-care (01) ==
LOC: NEPC 16:01 → NEDA 16:01 → NEPHCDU 20:50
PROVIDERS: ADMIT Internal Medicine; ATTEND Internal Medicine
DX: N17.9 Acute kidney failure, unspecified; I51.7 Cardiomegaly; I10 Essential (primary) hypertension; L03.90 Cellulitis, unspecified; M25.422 Effusion, left elbow; S50.02XA Contusion of left elbow, initial encounter; Z79.899 Other long term (current) drug therapy; Z86.73 Personal history of transient ischemic attack (TIA), and cerebral infarction without residual deficits; M19.90 Unspecified osteoarthritis, unspecified site; M25.522 Pain in left elbow; R06.02 Shortness of breath; E11.9 Type 2 diabetes mellitus without complications; I11.9 Hypertensive heart disease without heart failure; Z85.3 Personal history of malignant neoplasm of breast